=== PATIENT | female | born 1945 | race Caucasian/White ===

== ENCOUNTER 2019-11-02 17:15 | Emergency (ER) | payer MEDICARE, SELFPAY ==
--- NOTE | ~2019-11-02 | XR_ITS ---
EXAMINATION: XR chest 1V portable 11/02/2019 17:40 INDICATION: Shortness of breath, cough and fever PROCEDURE: AP portable chest COMPARISON: Comparison to multiple prior studies sequentially, with oldest reviewed study dated 04/13. FINDINGS: The lungs are clear. The cardiomediastinal silhouette is within normal limits. There are no pleural effusions. There is no pneumothorax suspected. IMPRESSION: 1: NO ACUTE CARDIOPULMONARY DISEASE. Reviewed, dictated and finalized at location A.
[2019-11-02 17:22] VITALS: BP 160/124; PULSE 101; RESP 19; TEMP 37.2; O2SAT 96
--- NOTE | 2019-11-02 17:24 | ECG_ITS ---
Measurements Intervals [place] Rate: 98 P: 78 MD: 132 QRS: -39 QRSD: 94 T: 55 QT: 329 QTc: 421 Interpretive Statements SINUS RHYTHM DELAYED PRECORDIAL R/S TRANSITION BASELINE ARTIFACT- I, III, AVR, AVL BORDERLINE ECG Electronically Signed On 11-03-2019 7:06:15 CDT by Alfredo Chapa D.O.
[2019-11-02 17:34] VITALS: O2SAT 98
[2019-11-02 18:01] LABS: Basophils Percent Auto 0.5 % (0.2-1.2); Eosinophils Absolute Auto 0.2 K/mm3 (0-0.3); Eosinophils Percent Auto 4.1 % (0-4.4); Hematocrit 42.2 % (37.0-47.0); Immature Granulocyte Absolute 0.01 K/mm3 (0.00-0.031); Immature Granulocyte Percent A 0.2 % (0-0.5); Immature Platelet Fraction Pct 14.8 % (0.9-11.2); Lymphocytes Absolute Auto 1.32 K/mm3 (0.9-3.2); Lymphocytes Percent Auto 22.8 % (18.3-44.2); Mean Corpuscular HGB Conc 30.8 g/dl (32-36); Mean Corpuscular Hemoglobin 26.5 pg (26-34); Mean Corpuscular Volume 86.1 fl (80-100); Mean Platelet Volume 13.9 fl (7.4-10.4); Monocytes Absolute Auto 0.5 K/mm3 (0.1-0.6); Monocytes Percent Auto 8.1 % (2.6-8.5); Neutrophils Absolute Auto 3.7 K/mm3 (1.3-6.7); Neutrophils Percent Auto 64.3 % (45.5-73.1); Platelet Count Result 184 k/mm3 (150-375); Red Cell Distribution Width 13.3 % (11.5-14.5); White Blood Count 5.8 K/mm3 (4.5-10.0)
[2019-11-02 18:10] LABS: Blood Urea Nitrogen 17 mg/dL (7-17); Calcium 9.1 mg/dL (8.4-10.2); Carbon Dioxide 27 mmol/L (22-30); Chloride 102 mmol/L (98-107); Estimated Glomerular Filt Rate > 60; Glucose 97 mg/dL (65-105); Potassium 4.2 mmol/L (3.4-5.0); Sodium 137 mmol/L (137-145)
[2019-11-02 19:16] LABS: CRP 1.7 mg/dL (<1.0)
[2019-11-02 19:21] VITALS: BP 163/79; PULSE 79; RESP 19; O2SAT 100
[2019-11-02 19:26] LABS: NT Pro B Type Natriuretic Pept 46 PG/ML (5-100); Troponin I < 0.012 ng/mL (0.000-0.034)
--- NOTE | 2019-11-02 19:41 | ED.SOB ---
HPI - SOB/Dyspnea General Chief Complaint: Shortness of Breath/Dyspnea Stated Complaint: fever, cough Time Seen by Provider: 11/02/19 17:30 Source: patient Mode of arrival: ambulatory Limitations: no limitations History of Present Illness HPI Narrative: 74 f h/o copd c/o nocturnal fevers the last three nights story is that her daughter that she lives with is a business case analyst and had a febrile illness that lasted 10+ days, ultimately was tested for CV19 and was neg however pcp was still suspicious that pts fever could be CV related pt wanted to go to the outpt testing, says she doesn't feel that bad, but was sent to the ed right now, she feels a little sob after walking to the bathroom Severity: moderate Relieving factors: nothing Related Data Home Medications Medication Instructions Recorded Confirmed albuterol sulfate 90 mcg/actuation 1 puff INHALATION Q4H PRN 06/12/19 aerosol inhaler fluticasone propionate 50 1 spray NASAL Q12H 06/12/19 mcg/actuation nasal spray,suspension losartan 50 mg-hydrochlorothiazide 1 tablet PO DAILY 06/12/19 12.5 mg tablet montelukast 10 mg tablet 10 mg PO DAILY 06/12/19 omeprazole 20 mg capsule,delayed 20 mg PO DAILY 06/12/19 release amitriptyline 25 mg PO DAILY 07/22/19 07/22/19 temazepam 15 mg PO HS 07/22/19 07/22/19 tramadol 50 mg PO TID PRN 07/22/19 07/22/19 Allergies Allergy/AdvReac Type Severity Reaction Status Date / Time No Known Allergies Allergy Verified 07/24/19 08:40 Review of Systems Constitutional: Constitutional: Denies fatigue, Reports fever(s) and Denies weakness ENT: Reports sore throat Respiratory: Respiratory: Denies chest congestion, Reports cough, Denies dyspnea and Denies wheezing Musculoskeletal: Musculoskeletal: Denies myalgias, Denies arthralgias and Denies joint swelling Neurologic: Denies syncope and Denies weakness [facility] Surgical History Surgical History (Updated 07/24/19 @ 08:40 by Nguyen Hightower) H/O hysterectomy for benign disease Due to uterine fibroids in 1996 History of bladder repair surgery History of section History of colonoscopy [address] Garcia History of hemorrhoidectomy History of sinus surgery February [address] Rowe due to chronic maxillary and ethmoid sinusitis Hx of cataract surgery Hx of hysterectomy S/P sinus surgery Family History Family History (System 07/24/19 @ 08:40 by Nguyen Hightower) Sibling Chronic obstructive pulmonary disease Hypertension Lung cancer Brother Mother Acute myocardial infarction Mother Family history of premature coronary heart disease, Onset Age: 73 Patient's mother is Sibling Hypertension Family history of elevated blood lipids Family history of alcoholism Family history of diabetes mellitus in first degree relative Other Diabetes mellitus Social History Social History (Updated 10/10/19 @ 17:09 by Deborah Reveles) Social History: The patient has been to her for 20 years. They were in a committed relationship for 13 years prior to getting . She has 3 children 1 of which is struggling with obesity and another 1 who has GI issues and will not follow up with a physician. The other child is relatively healthy. Patient reported that she quit smoking completely about 2 years ago. She denies any significant alcohol use. She lives at home with her daughter, step children and her . They have a small dog and 2 cats. Primary care physician: Dr. Sammie Coughlin Code status: Full code Smoking packs per day: 1 Smoking cigarettes per day: 20.0 Years smoked: 52 Smoking pack-years: 52.00 Smoking status: Former smoker Tobacco type: cigarettes Second hand tobacco smoke exposure: No Smoking end date: 07/26/15 Alcohol intake: never Substance use: never Substance use type: does not use Gender identity (if verbalized b
[2019-11-02] MEDS: ALBUTEROL SULFATE (*SP) AEROSOL 1 PUFF 4 PUFF INHALATION (20:47)
[2019-11-02 20:48] VITALS: BP 146/66; PULSE 100; RESP 22; O2SAT 97
[2019-11-02 22:02] VITALS: BP 147/88; PULSE 84; RESP 18; TEMP 37.2; O2SAT 98
[2019-11-04 06:19] LABS: Pan-SARS RNA: NEGATIVE (NEGATIVE); SARS-CoV-2 RNA: NEGATIVE (NEGATIVE)
== END 2019-11-02 22:03 | disposition home or self-care (01) ==
PROVIDERS: Emergency Provider Emergency Medicine; PCP Family Medicine
DX: J44.9 Chronic obstructive pulmonary disease, unspecified (principal); Z20.828 Contact with and (suspected) exposure to other viral communicable diseases; Z98.49 Cataract extraction status, unspecified eye; Z87.891 Personal history of nicotine dependence; R06.02 Shortness of breath
CPT/HCPCS: 36415; 71045; 80048; 83880; 84484; 85025; 85055; 86140; 87635; 87804; 93005; 99284; A9270; U0002

== ENCOUNTER 2020-01-22 15:52 | Outpatient (CLI) | payer MEDICARE, SELFPAY ==
--- NOTE | ~2020-01-22 | XR_ITS ---
EXAMINATION: XR chest 2V 01/22/2020 16:13 INDICATION: Left-sided chest pain PROCEDURE: 2 view chest COMPARISON: Comparison to multiple prior studies sequentially, with oldest reviewed study dated 11/2017. FINDINGS: The lungs are clear. The cardiomediastinal silhouette is within normal limits. There are no pleural effusions. There is no pneumothorax suspected. IMPRESSION: 1: NO ACUTE CARDIOPULMONARY DISEASE. Reviewed, dictated and finalized at location A.
== END 2020-01-22 15:53 | disposition home or self-care (01) ==
PROVIDERS: PCP Family Medicine; Visit Provider Family Medicine
DX: R05 Cough (principal)
CPT/HCPCS: 71046

== ENCOUNTER 2020-04-29 14:35 | Emergency (ER) | payer MEDICARE, SELFPAY ==
[2020-04-29] VITALS (17 sets, daily range): BP systolic 136–184; BP diastolic 58–131; PULSE 74–93; RESP 12–20; TEMP 36.6; O2SAT 97–100
--- NOTE | ~2020-04-29 | XR_ITS ---
EXAMINATION: XR chest 2V EXAM DATE: 04/29/2020 15:23 INDICATION: Left-sided chest pain. TECHNIQUE: Frontal and lateral projections of the chest obtained and reviewed. Comparison is made to prior examination from 01/22/2020. FINDINGS: The lungs are clear. There are no pleural effusions. The cardiomediastinal silhouette is within normal limits. There is no pneumothorax suspected. The bones and soft tissues are unremarkab le. Mild hyperinflation. IMPRESSION: Mild hyperinflation. Reviewed, dictated and finalized at location B. IMPRESSION: Mild hyperinflation.
--- NOTE | ~2020-04-29 | CT_ITS ---
EXAMINATION: CTA chest PE protocol DATE: 04/29/2020 17:44 INDICATION: Acute onset chest pain TECHNIQUE: Computed tomography (CT) pulmonary angiogram of the chest was performed with 100 mL Omnipa que-350 intravenous contrast. Additional 3D reconstructions utilizing coronal maximum intensity proje ction (MIP) were performed. Automated exposure control and iterative reconstruction technique were em ployed. The dose-length product was 442.68 mGy-cm. COMPARISON: 09/28/2017 FINDINGS: Excellent contrast opacification of the pulmonary arteries. There is mild streak artifact from dense contrast in the superior vena cava and right atrium. Mild scattered respiratory motion artifact which does not significantly limit evaluation. No pulmonary embolism. Mild emphysema. Mild anterior left b asilar atelectasis in the lingula and left lower lobe. A few calcified nodules in the bilateral lower lobes, a few chronic <3 mm noncalcified pulmonary nodules which are unchanged since the prior study, calcified left hilar lymph nodes and a few scattered hepatic and splenic calcifications, all consist ent with old granulomatous disease. No pneumonia, pulmonary edema, pleural effusion or pneumothorax. Heart size is normal. Atherosclerotic coronary artery calcific calcification. No pericardial or pleur al effusion. No pathologically enlarged thoracic lymphadenopathy. Small sliding-type hiatal hernia. V isualized upper abdomen is unremarkable. Mild thoracic levocurvature with severe spondylosis. IMPRESSION: 1. No pulmonary embolism or other acute cardiopulmonary disease. 2. Emphysema. Reviewed, dictated and finalized at location A.
--- NOTE | 2020-04-29 14:39 | ECG_ITS ---
Measurements Intervals [place] Rate: 89 P: 76 NH: 142 QRS: 85 QRSD: 77 T: 74 QT: 348 QTc: 424 Interpretive Statements SINUS RHYTHM BASELINE WANDER- V3 NORMAL ECG Electronically Signed On 04-30-2020 8:04:55 CDT by Alfredo Chapa D.O.
[2020-04-29 15:31] LABS: Basophils Percent Auto 0.6 % (0.2-1.2); Eosinophils Absolute Auto 0.2 K/mm3 (0-0.3); Eosinophils Percent Auto 3.9 % (0-4.4); Hematocrit 39.7 % (37.0-47.0); Hemoglobin 12.6 g/dL (12.0-15.0); Immature Granulocyte Absolute 0.01 K/mm3 (0.00-0.031); Immature Granulocyte Percent A 0.2 % (0-0.5); Immature Platelet Fraction Pct 15.3 % (0.9-11.2); Lymphocytes Absolute Auto 1.19 K/mm3 (0.9-3.2); Mean Corpuscular HGB Conc 31.7 g/dl (32-36); Mean Corpuscular Hemoglobin 28.1 pg (26-34); Mean Corpuscular Volume 88.4 fl (80-100); Monocytes Absolute Auto 0.3 K/mm3 (0.1-0.6); Monocytes Percent Auto 5.5 % (2.6-8.5); Neutrophils Absolute Auto 3.7 K/mm3 (1.3-6.7); Neutrophils Percent Auto 67.8 % (45.5-73.1); Platelet Count Result 166 k/mm3 (150-375); Red Blood Count 4.49 M/mm3 (4.2-5.4); Red Cell Distribution Width 13.2 % (11.5-14.5); White Blood Count 5.4 K/mm3 (4.5-10.0)
[2020-04-29 15:43] LABS: INR 0.9; Prothrombin Time 12.3 Seconds (11.1-14.7)
[2020-04-29 15:44] LABS: Partial Thromboplastin Time 36.5 SECONDS (22.3-36.8)
[2020-04-29 15:53] LABS: Anion Gap 7 mmol/L (8-16); Blood Urea Nitrogen 17 mg/dL (7-17); Calcium 9.1 mg/dL (8.4-10.2); Carbon Dioxide 29 mmol/L (22-30); Chloride 102 mmol/L (98-107); Estimated Glomerular Filt Rate > 60; Glucose 100 mg/dL (65-105); Potassium 4.4 mmol/L (3.4-5.0); Sodium 138 mmol/L (137-145)
[2020-04-29 16:07] LABS: Troponin I < 0.012 ng/mL (0.000-0.034)
--- NOTE | 2020-04-29 16:20 | ED.CHESTPAIN ---
HPI - Chest Pain General Chief Complaint: Chest Pain Stated Complaint: cp Time Seen by Provider: 04/29/20 16:19 Source: patient Mode of arrival: ambulatory Limitations: no limitations History of Present Illness HPI narrative: Patient is a 75-year-old female with a history of COPD who presents for evaluation of chest pain. Patient states that she was doing activities around her house when she suddenly experienced sharp, severe, cramping chest pain over the front, center of her chest. No radiation to the back, jaw, shoulder or arm. Patient states she felt a bit flushed with the pain, no associated nausea, did experience some shortness of breath but states that she usually has this chronically. She denies any recent fever, no worsening cough other than baseline cough. She reports mild rhinorrhea. No recent sick contacts. Pain is currently more mild in nature. She is denying wanting any medication for pain. Patient did states to take a baby aspirin daily. She denies any cardiac history, but when questioned about the last admission with cardiology consultation, patient simply states she does not follow-up with anyone outpatient. Related Data Home Medications Medication Instructions Recorded Confirmed albuterol sulfate 90 mcg/actuation 1 puff INHALATION Q4H PRN 06/12/19 02/10/20 aerosol inhaler fluticasone propionate 50 1 spray NASAL Q12H 06/12/19 02/10/20 mcg/actuation nasal spray,suspension losartan 50 mg-hydrochlorothiazide 1 tablet PO DAILY 06/12/19 02/10/20 12.5 mg tablet montelukast 10 mg tablet 10 mg PO DAILY 06/12/19 02/10/20 omeprazole 20 mg capsule,delayed 20 mg PO DAILY 06/12/19 02/10/20 release Allergies Allergy/AdvReac Type Severity Reaction Status Date / Time No Known Allergies Allergy Verified 02/01/20 12:57 Review of Systems Review of Systems: Narrative: CONSTITUTIONAL: Denies fever EYES: Denies visual changes ENT: Denies rhinorrhea, congestion, sore throat, or otalgia. CARDIOVASCULAR: Reports chest pain, denies palpitations or leg edema RESPIRATORY: Reports chronic cough and shortness of breath, at baseline per the patient GASTROINTESTINAL: Denies abdominal pain, nausea, vomiting, or diarrhea. GENITOURINARY: Denies dysuria or hematuria. SKIN: Denies rash or itching. MUSCULOSKELETAL: Denies back pain, joint pain, or myalgia. NEUROLOGIC: Denies headache, numbness, or weakness. [facility] Past Medical History Medical History Arthritis Benign hypertension without CHF Chronic ethmoidal sinusitis Chronic pain COPD (chronic obstructive pulmonary disease) PFTs July 2017 demonstrated moderate obstructive ventilatory defect with severe small airway disease. No acute bronchodilator response. Severely decreased DLCO with worsening of her DLCO compared to prior study in November of 2016 COPD (chronic obstructive pulmonary disease) Depression with anxiety Diastolic dysfunction Echo September 2017 GERD (gastroesophageal reflux disease) History of tobacco abuse Insomnia Irritable bowel syndrome (IBS) MDD (major depressive disorder), recurrent episode, moderate Multifocal atrial tachycardia September 2016 Osteoporosis Right radial head fracture Right wrist fracture Surgical History Surgical History (Updated 07/24/19 @ 08:40 by Nguyen Hightower) H/O hysterectomy for benign disease Due to uterine fibroids in 1996 History of bladder repair surgery History of section History of colonoscopy [address] Garcia History of hemorrhoidectomy History of sinus surgery February [address] Rowe due to chronic maxillary and ethmoid sinusitis Hx of cataract surgery Hx of hysterectomy S/P sinus surgery Family History Family History (System 07/24/19 @ 08:40 by Nguyen Hightower) Sibling Chronic obstructive pulmonary disease Hypertension Lung cancer Brother Mother Acute myocardial infarction Mother
--- NOTE | 2020-04-29 16:35 | ECG_ITS ---
Measurements Intervals [place] Rate: 78 P: 78 SD: 148 QRS: 87 QRSD: 86 T: 75 QT: 372 QTc: 425 Interpretive Statements SINUS RHYTHM BASELINE WANDER- V5 NORMAL ECG Electronically Signed On 04-30-2020 10:33:17 CDT by Alfredo Chapa D.O.
[2020-04-29] MEDS: ASPIRIN 81 MG CHEWABLE TABLET 324 MG PO (16:42)
[2020-04-29 18:54] LABS: Troponin I < 0.012 ng/mL (0.000-0.034)
== END 2020-04-29 19:15 | disposition home or self-care (01) ==
PROVIDERS: Emergency Medicine; Emergency Provider Emergency Medicine; PCP Family Medicine
DX: R07.89 Other chest pain (principal); I10 Essential (primary) hypertension; J43.9 Emphysema, unspecified; K21.9 Gastro-esophageal reflux disease without esophagitis; K58.9 Irritable bowel syndrome, unspecified; M81.0 Age-related osteoporosis without current pathological fracture; M19.90 Unspecified osteoarthritis, unspecified site; Z98.49 Cataract extraction status, unspecified eye; Z87.891 Personal history of nicotine dependence
CPT/HCPCS: 36415; 71046; 71275; 80048; 84484; 85025; 85055; 85610; 85730; 93005; 99284; A9270; Q9967

== ENCOUNTER 2020-06-10 14:08 | Outpatient (CLI) | payer MEDICARE, SELFPAY ==
--- NOTE | ~2020-06-10 | US_ITS ---
EXAMINATION: US carotid duplex BI DATE: 06/10/2020 15:17 INDICATION: Carotid atherosclerosis and stenosis. Carotid bruits. Hypertension. TECHNIQUE: Grayscale, color Doppler, and pulsed Doppler images of the cervical carotid arteries were obtained. The degree of vessel stenosis is placed in one of the following categories: normal, <50%, 5 0-69%, >=70% but less than near-occlusion, near-occlusion, or total occlusion. Note that percent sten osis relative to normal distal artery lumen diameter is indirectly measured from velocity measurement s as described by Jaleel, et al. Radiology 2003; 229:340-346. COMPARISON: 10/17/2012 FINDINGS: RIGHT: The right common carotid artery (CCA) peak systolic velocity (PSV) is 87 cm/s. The right internal car otid artery (ICA) PSV is 89 cm/s. The right ICA end-diastolic velocity (EDV) is 33 cm/s. The right IC A/CCA PSV ratio is 1.02. Grayscale and color Doppler images yield an estimate of <50% diameter reduct ion from plaque in the ICA. The external carotid artery (ECA) PSV is 114 cm/s. There is antegrade sandra w in the right vertebral artery. LEFT: The left CCA PSV is 61 cm/s. The left ICA PSV is 85 cm/s. The left ICA EDV is 34 cm/s. The left ICA/C CA PSV ratio is 1.4. Grayscale and color Doppler images yield an estimate of <50% diameter reduction from plaque in the ICA. The ECA PSV is 70 cm/s. There is antegrade flow in the left vertebral artery. IMPRESSION: 1. <50% stenosis in the right internal carotid artery. 2. <50% stenosis in the left internal carotid artery. Reviewed, dictated and finalized at location . [employer]
--- NOTE | ~2020-06-10 | CT_ITS ---
EXAMINATION: CT sinus wo con DATE: 06/10/2020 15:26 INDICATION: Localized swelling, mass TECHNIQUE: Computed tomography (CT) of the paranasal sinuses was performed without contrast. Iterativ e reconstruction technique was employed. Exam dose: 312.93 mGy-cm total exam DLP. COMPARISON: 02/09/2018 CT sinuses FINDINGS: There is minimal rightward bowing of the nasal septum. There is resection of the middle briana al turbinates and uncinate processes. There is moderate mucoperiosteal thickening of the left frontal sinus. There is minimal mucoperiostea l thickening of the right frontal sinus. Status post bilateral nasal antral windows and partial ethmoidectomies. There is prominent opacificat ion of the residual ethmoid air cells. Approximately 5 millimeter mucus retention cyst of the lower right maxillary sinus. There is focal mi nimal mucoperiosteal thickening in the mid lateral lower right maxillary sinus. There is mild to moderate cystic soft tissue thickening within the right sphenoid sinus. The left sph enoid sinus is clear. The mastoid air cells are normally developed and aerated. Middle and inner ear apparatus appear normal. IMPRESSION: Bilateral nasal antral windows and partial ethmoidectomies Mucoperiosteal thickening of the frontal sinuses, ethmoid air cells Small mucus retention cyst of the floor of the right maxillary sinus and minimal focal mucosal perios teal thickening of the lateral wall of same sinus Reviewed, dictated and finalized at Location A. Reviewed, dictated and finalized at location B. [employer] WORK[employer] IMPRESSION: Bilateral nasal antral windows and partial ethmoidectomies Mucoperiosteal thickening of the frontal sinuses, ethmoid air cells Small mucus retention cyst of the floor of the right maxillary sinus and minima l focal mucosal periosteal thickening of the lateral wall of same sinus
== END 2020-06-10 14:09 | disposition home or self-care (01) ==
PROVIDERS: PCP Family Medicine; Visit Provider Physician Assistant
DX: R22.0 Localized swelling, mass and lump, head (principal); I10 Essential (primary) hypertension; R41.0 Disorientation, unspecified; R42 Dizziness and giddiness; I65.23 Occlusion and stenosis of bilateral carotid arteries
CPT/HCPCS: 70486; 93880

== ENCOUNTER 2020-10-10 12:29 | Outpatient (CLI) | payer MEDICARE, SELFPAY ==
[2020-10-10 13:00] VITALS: O2SAT 94
[2020-10-10 13:08] VITALS: PULSE 120; O2SAT 87
[2020-10-10 13:09] VITALS: PULSE 120; O2SAT 88
[2020-10-10 13:10] VITALS: PULSE 112; O2SAT 92
--- NOTE | 2020-10-10 14:09 | HOMEO2EVAL ---
Home Oxygen Evaluation RC: Home Oxygen (O2) Evaluation Start: 10/10/20 14:03 Freq: Status: Active Protocol: RPE Activity Type Activity Date Activity User E-Sign Co-Sign Detail Recorded Client Recorded Date Recorded By Document 10/10/20 13:10 KMV [id number] 10/10/20 14:06 KMV Document 10/10/20 13:10 KMV [id number] 10/10/20 14:06 KMV 10/10/20 10/10/20 13:10 13:10 Home O2 Evaluation Test Phase Exercise Exercise Oxygen Delivery Room Air Nasal Cannula Oxygen Flow Rate (L/min) 2 Pulse Oximetry (90-100 %) 87 L 92 Pulse Rate (60-100 beats/min) 120 H 112 H Activity Tolerance Fair Fair Rating of Perceived Dyspnea (PD) +3 Moderate Difficulty, But Can Continue
== END 2020-10-10 12:30 | disposition home or self-care (01) ==
PROVIDERS: PCP Family Medicine; Visit Provider Internal Medicine Pulmonary Disease
DX: J44.9 Chronic obstructive pulmonary disease, unspecified (principal); R06.02 Shortness of breath
CPT/HCPCS: 94618

== ENCOUNTER 2021-03-10 17:08 | Outpatient (CLI) | payer MEDICARE, SELFPAY ==
--- NOTE | ~2021-03-10 | XR_ITS ---
XR chest 2V DATE: 03/10/2021 17:31 INDICATION: Shortness of breath, cough. TECHNIQUE: PA and lateral views COMPARISON: 04/29/2020 CT pulmonary scan 04/29/2020 2 view chest FINDINGS: Normal heart size. Aortic arch calcification. No hilar or mediastinal enlargement. No pulmonary infiltrate or consolidation, pleural effusion or pulmonary vascular congestion or pneumo thorax is detected. Moderate hyperinflation consistent with obstructive airways disease. Diffuse osteopenia. IMPRESSION: Moderate hyperinflation; no active cardiopulmonary disease Reviewed, dictated and finalized at location A.
== END 2021-03-10 17:09 | disposition home or self-care (01) ==
PROVIDERS: PCP Family Medicine; Visit Provider Physician Assistant
DX: U07.1 COVID-19 (principal); R06.02 Shortness of breath; R05 Cough; R91.8 Other nonspecific abnormal finding of lung field
CPT/HCPCS: 71046

== ENCOUNTER 2021-04-01 14:54 | Outpatient (CLI) | payer MEDICARE, SELFPAY ==
--- NOTE | ~2021-04-01 | MM_ITS ---
EXAMINATION: MM screening idris BI w johanne HISTORY: Screening mammogram TECHNIQUE: Craniocaudal and mediolateral oblique 3-D tomosynthesis images were obtained and synthetic 2-D images were generated. CAD analysis was submitted and interpreted. COMPARISON: 12/31/2016, 06/26/2013 bilateral digital screening mammogram examinations BREAST PARENCHYMAL COMPOSITION: There are scattered areas of fibroglandular density. FINDINGS: There is no evidence of suspicious mass, calcification, or architectural distortion to sugg est malignancy in either breast. There has been no suspicious interval change. IMPRESSION: 1. No mammographic evidence of malignancy. 2. Recommend routine screening mammography in one year. BI-RADS Category 1: Negative Reviewed, dictated and finalized at location A.
--- NOTE | ~2021-04-01 | DEXA_ITS ---
Bone Density Report Name: Abigail Martinez Age: 76 Sex: Female Ethnicity: White Date of : 1945 Indication: postmenopausal; asthma or emphysema; hysterectomy; Referring Provider: Mirlande Hinton Study: Bone densitometry was performed. Exam Date: April 01, 2021 Accession number: [id number] Bone Density: Region BMD T-score Z-score Classification AP Spine (L1, L2, L3) 0.980 -0.3 2.0 Normal Femoral Neck (Left) 0.663 -1.7 0.4 Osteopenia Total Hip (Left) 0.725 -1.8 0.0 Osteopenia Total Hip Bilateral Avg 0.727 -1.8 0.0 Osteopenia Femoral Neck (Right) 0.620 -2.1 0.0 Osteopenia Total Hip (Right) 0.729 -1.7 0.0 Osteopenia World Health Organization criteria for BMD impression classify patients as: Normal (T-score at or above -1.0), Osteopenia (T-score between -1.0 and -2.5), or Osteoporosis (T-score at or below -2.5). 10-year Fracture Risk(1): Major Osteoporotic Fracture 12% Hip Fracture 3.1% Reported Risk Factors: [place] (), Neck BMD=0.620, BMI=34.5 (1) FRAX(R) Version 3.08. Fracture probability calculated for an untreated patient. Fracture probability may be lower if the patient has received treatment. Clinical Information Provided by Patient: Has the following medical conditions: Asthma or Emphysema, Hysterectomy Patient maximum height was 59.5 Menopause Age: 52 No regular weight bearing exercise Onset of menses at age 12 Number of children 3 Impression: The patient has low bone mass, based on the Right Femoral Neck T-score. The patient has an estimated ten-year risk of hip fracture of 3.1% and an estimated ten-year risk of major fracture of 12%, based on the WHO FRAX algorithm. Discussion: BONE DENSITY IS LOW AT ONE OR MORE SKELETAL SITES. THE PATIENT'S BMD AND CLINICAL RISK FACTORS CONTRIBUTE TO THIS PATIENT'S INCREASED RISK OF FRACTURE. This patient's lowest T-score is low at one or more skeletal sites. It meets the World Health Organization's (WHO) criteria for ?low bone mass? (T-score between -1.0 and -2.5). The patient's 10-year risk of hip fracture as calculated by FRAX exceeds the threshold where pharmacological therapy is recommended by the National Osteoporosis Foundation (NOF). However, all treatment decisions require clinical judgment and consideration of individual patient factors, including patient preferences, comorbidities, previous drug use, risk factors not captured in the FRAX model (e.g., frailty, falls, vitamin D deficiency, increased bone turnover, interval significant decline in bone density) and possible under or overestimation of fracture risk by FRAX. The patient should follow a healthful lifestyle (good nutrition with adequate calcium and vitamin D, and appropriate weight-bearing exercise). Follow-Up: Consider a repeat BMD and Vertebral Fracture Asses
== END 2021-04-01 14:55 | disposition home or self-care (01) ==
PROVIDERS: PCP Family Medicine; Visit Provider Physician Assistant
DX: Z12.31 Encounter for screening mammogram for malignant neoplasm of breast (principal); Z78.0 Asymptomatic menopausal state; M85.89 Other specified disorders of bone density and structure, multiple sites
CPT/HCPCS: 77063; 77067; 77080

== ENCOUNTER 2021-04-18 07:56 | Outpatient (CLI) | payer MEDICARE, SELFPAY ==
--- NOTE | ~2021-04-18 | CT_ITS ---
EXAMINATION: CT lung screening DATE: 04/18/2021 08:26 INDICATION: COPD. Dyspnea. Personal history of tobacco dependence. TECHNIQUE: Computed tomography (CT) of the chest was performed without intravenous contrast. The dose -length product was 89.87 mGy-cm. Automated exposure control and iterative reconstruction technique w ere employed. COMPARISON: CT dated 04/29/2020 FINDINGS: No thoracic lymphadenopathy. No significant pleural or pericardial effusion. Heart size is normal. There is atherosclerosis of the aorta and coronary arteries. There are calcified granulomas o f the liver and spleen. No significant pleural or pericardial effusion. There is emphysema. There are scattered nodules measuring 3 mm or less in both lungs without significant change. No pneumothorax. No focal parenchymal consolidation. IMPRESSION: 1. Lung-RADS category 2: Benign appearance or behavior. Continue annual screening with noncontrast lo w-dose chest CT in 12 months. Reviewed, dictated and finalized at location A. IMPRESSION: 1. Lung-RADS category 2: Benign appearance or behavior. Continue annual screeni ng with noncontrast low-dose chest CT in 12 months.
== END 2021-04-18 07:57 | disposition home or self-care (01) ==
PROVIDERS: PCP Family Medicine; Visit Provider Internal Medicine Pulmonary Disease
DX: Z87.891 Personal history of nicotine dependence (principal)
CPT/HCPCS: 71271

== ENCOUNTER 2021-11-21 14:18 | Emergency (ER) | payer MEDICARE, SELFPAY ==
--- NOTE | ~2021-11-21 | XR_ITS ---
EXAMINATION: XR chest 2V DATE: 11/21/2021 14:36 INDICATION: Cough and shortness of breath TECHNIQUE: PA and lateral views of the chest are obtained. COMPARISON: 03/10/2021 FINDINGS: The lungs are free of acute opacities. There is no pleural effusion or pneumothorax. The ca rdiomediastinal silhouette is normal. There is moderate thoracic spondylosis. IMPRESSION: 1. No acute cardiopulmonary abnormality. Reviewed, dictated and finalized at location B.
[2021-11-21 14:26] VITALS: BP 146/61; PULSE 112; RESP 16; TEMP 37.3; O2SAT 91
--- NOTE | 2021-11-21 14:28 | ED.URI ---
HPI - URI/Sore Throat General Chief Complaint: Upper Respiratory Infection Stated Complaint: SOB/SORE THROAT/COUGH Time Seen by Provider: 11/21/21 14:28 Source: patient and RN notes reviewed Mode of arrival: ambulatory Limitations: no limitations History of Present Illness HPI Narrative: 76-year-old female with a history of chronic respiratory failure and emphysema presented for complaint of cough, shortness of breath, chills, wheezing and sore throat for 1 week. Cough is productive of thick yellow sputum. She endorses wearing oxygen at night, shortness of breath is worse than normal. She has been using her nebulizer and trelegy as directed. She states this was the first day she felt that she could leave the house. States O2 sat usually 90-91%. She endorses urine stream is weak. Denies new chest pain, nausea, vomiting, diarrhea. Taking mucinex with temporary relief. MD elicited complaint: cough Related Data Home Medications Medication Instructions Recorded Confirmed fluticasone propionate 50 1 spray NASAL Q12H 06/12/19 09/30/21 mcg/actuation nasal spray,suspension albuterol sulfate 2.5 mg INHALATION Q4-6H PRN 09/30/21 09/30/21 Allergies Allergy/AdvReac Type Severity Reaction Status Date / Time No Known Allergies Allergy Verified 09/30/21 13:13 Review of Systems Review of Systems: CONSTITUTIONAL: Endorses malaise, chills EYES: Denies visual changes, redness, or discharge ENT: Denies rhinorrhea, congestion, sinus pain, otalgia CARDIOVASCULAR: Denies chest pain, palpitations, edema RESPIRATORY: Reports cough, dyspnea GASTROINTESTINAL: Denies abdominal pain, nausea, vomiting, diarrhea SKIN: Denies rash or itching MUSCULOSKELETAL: Denies myalgia NEUROLOGIC: Denies headache [facility] Past Medical History Medical History Arthritis Benign hypertension without CHF Chronic ethmoidal sinusitis Chronic pain COPD (chronic obstructive pulmonary disease) PFTs July 2017 demonstrated moderate obstructive ventilatory defect with severe small airway disease. No acute bronchodilator response. Severely decreased DLCO with worsening of her DLCO compared to prior study in November of 2016 COPD (chronic obstructive pulmonary disease) Depression with anxiety Diastolic dysfunction Echo September 2017 Emphysema lung GERD (gastroesophageal reflux disease) History of tobacco abuse Insomnia Irritable bowel syndrome (IBS) MDD (major depressive disorder), recurrent episode, moderate Multifocal atrial tachycardia September 2016 Osteoporosis Right radial head fracture Right wrist fracture Surgical History Surgical History H/O hysterectomy for benign disease Due to uterine fibroids in 1996 History of bladder repair surgery History of section History of colonoscopy [address] Garcia History of hemorrhoidectomy History of sinus surgery February [address] Rowe due to chronic maxillary and ethmoid sinusitis Hx of cataract surgery Hx of hysterectomy S/P sinus surgery Family History Family History Sibling Chronic obstructive pulmonary disease Hypertension Lung cancer Brother Mother Acute myocardial infarction Mother Family history of premature coronary heart disease, Onset Age: 73 Patient's mother is Sibling Hypertension Family history of elevated blood lipids Family history of alcoholism Family history of diabetes mellitus in first degree relative Other Diabetes mellitus Social History Social History (Updated 09/30/21 @ 14:27 by Sarah Maguire PA-C) Social History: The patient has been to her for 20 years. They were in a committed relationship for 13 years prior to getting . She has 3 children. Patient reported that she quit smoking 2015. She denies any
== END 2021-11-21 15:14 | disposition home or self-care (01) ==
PROVIDERS: Emergency Provider Nurse Practitioner Family; PCP Family Medicine
DX: J44.1 Chronic obstructive pulmonary disease with (acute) exacerbation (principal); Z87.891 Personal history of nicotine dependence
CPT/HCPCS: 71046; 87081; 87880; 99213; G0463

== ENCOUNTER 2021-11-26 19:54 | Emergency (ER) | payer MEDICARE, SELFPAY ==
[2021-11-26 19:56] VITALS: BP 153/82; PULSE 111; RESP 16; TEMP 36.7; O2SAT 100
--- NOTE | 2021-11-26 20:20 | PC.NURSE ---
Pt stated to this nurse that she no longer wants to seek medical evaluation and will return if she feels she needs to. This nurse educated patient on the risks and benefits of staying and that the pt is welcome to come back to be evaluated if there are any changes.
== END 2021-11-26 20:20 | disposition left against medical advice (07) ==
LOC: ANHED 20:30
PROVIDERS: PCP Family Medicine
DX: R06.02 Shortness of breath (principal)
CPT/HCPCS: 99199

== ENCOUNTER 2021-12-23 11:43 | Outpatient (CLI) | payer MEDICARE, SELFPAY ==
--- NOTE | ~2021-12-23 | US_ITS ---
EXAMINATION: US venous doppler LE DATE: 12/23/2021 12:24 INDICATION: Right lower limb pain and swelling TECHNIQUE: Grayscale ultrasound images without and with compression and Doppler ultrasound images of the right lower extremity veins were obtained. COMPARISON: None. FINDINGS: The visualized portions of right common femoral vein, profunda (deep) femoral vein, femoral vein, pop liteal vein, peroneal trunk, posterior tibial veins, peroneal veins, gastrocnemius vein and greater s aphenous vein outflow are patent. IMPRESSION: 1. No deep venous thrombosis in the right lower limb. Reviewed, dictated and finalized at location B.
== END 2021-12-23 11:44 | disposition home or self-care (01) ==
LOC: ANHIMG 11:48
PROVIDERS: PCP Family Medicine; Visit Provider Family Medicine
DX: R60.0 Localized edema (principal)
CPT/HCPCS: 93971

== ENCOUNTER 2022-01-03 12:17 | Emergency (ER) | payer MEDICARE, SELFPAY ==
--- NOTE | ~2022-01-03 | XR_ITS ---
XR elbow RT min 3V 01/03/2022 13:23 INDICATION: Right elbow pain PROCEDURE: 4 views right elbow COMPARISON: 12/08/2016 FINDINGS: Fracture, dislocation or subluxation is not identified. There is no significant joint effus ion. There is soft tissue swelling dorsal to the elbow. No foreign bodies are identified. IMPRESSION: 1: NO ACUTE BONE OR JOINT ABNORMALITY IDENTIFIED. Reviewed, dictated and finalized at location A.
[2022-01-03 12:24] VITALS: BP 139/71; PULSE 109; RESP 18; TEMP 36.2; O2SAT 98
--- NOTE | 2022-01-03 13:10 | ED.UPPEXIN ---
HPI - Extremity Injury (Upper) General Chief Complaint: Extremity Injury, Upper Stated Complaint: right elbow injury Time Seen by Provider: 01/03/22 13:11 Source: patient, family, RN notes reviewed and old records reviewed History of Present Illness HPI narrative: 76-year-old female accompanied by her presents to express care with complaints of pain to her right elbow for the past 2 days. Patient has noted swelling with redness and warmth at the right elbow olecranon process region with difficulty and pain with movement of her right elbow. Patient reports no injury to her right elbow known. Onset (ago): day(s) (2) Severity scale (1-10): 3 Related Data Home Medications Medication Instructions Recorded Confirmed fluticasone propionate 50 1 spray intranasal Q12H 06/12/19 12/23/21 mcg/actuation nasal spray,suspension (Flonase Allergy Relief) albuterol sulfate 2.5 mg/3 mL 2.5 mg inhalation Q4-6H PRN 09/30/21 12/23/21 (0.083 %) solution for nebulization shortness of breath or wheezing Allergies Allergy/AdvReac Type Severity Reaction Status Date / Time No Known Allergies Allergy Verified 12/23/21 10:54 Review of Systems Review of Systems: CONSTITUTIONAL: Denies fever, chills, or sweats. EYES: Denies visual changes, redness, or discharge. ENT: Denies rhinorrhea, congestion, sore throat, or otalgia. CARDIOVASCULAR: Denies chest pain, palpitations, or edema. RESPIRATORY: Denies cough or dyspnea. GASTROINTESTINAL: Denies abdominal pain, nausea, vomiting, or diarrhea. GENITOURINARY: Denies dysuria or hematuria. SKIN: Denies rash or itching. MUSCULOSKELETAL: Positive back pain,positive for pain to her right elbow, or myalgia. NEUROLOGIC: Denies headache, numbness, or weakness. PSYCHIATRIC: positive for history of anxiety or depression. [facility] Past Medical History Medical History Arthritis Benign hypertension without CHF Chronic ethmoidal sinusitis Chronic pain COPD (chronic obstructive pulmonary disease) PFTs July 2017 demonstrated moderate obstructive ventilatory defect with severe small airway disease. No acute bronchodilator response. Severely decreased DLCO with worsening of her DLCO compared to prior study in November of 2016 COPD (chronic obstructive pulmonary disease) Depression with anxiety Diastolic dysfunction Echo September 2017 Emphysema lung GERD (gastroesophageal reflux disease) History of tobacco abuse Insomnia Irritable bowel syndrome (IBS) MDD (major depressive disorder), recurrent episode, moderate Multifocal atrial tachycardia September 2016 Osteoporosis Right radial head fracture Right wrist fracture Surgical History Surgical History H/O hysterectomy for benign disease Due to uterine fibroids in 1996 History of bladder repair surgery History of section History of colonoscopy [address] Garcia History of hemorrhoidectomy History of sinus surgery February [address] Rowe due to chronic maxillary and ethmoid sinusitis Hx of cataract surgery Hx of hysterectomy S/P sinus surgery Family History Family History Sibling Chronic obstructive pulmonary disease Hypertension Lung cancer Brother Mother Acute myocardial infarction Mother Family history of premature coronary heart disease, Onset Age: 73 Patient's mother is Sibling Hypertension Family history of elevated blood lipids Family history of alcoholism Family history of diabetes mellitus in first degree relative Other Diabetes mellitus Social History Social History Social History: The patient has been to her for 20 years. They were in a committed relationship for 13 years prior to getting . She has 3 children. P
== END 2022-01-03 13:50 | disposition home or self-care (01) ==
PROVIDERS: Emergency Provider Registered Nurse; PCP Family Medicine
DX: L03.113 Cellulitis of right upper limb (principal); Z87.891 Personal history of nicotine dependence; I10 Essential (primary) hypertension; J44.9 Chronic obstructive pulmonary disease, unspecified; K21.9 Gastro-esophageal reflux disease without esophagitis; M81.0 Age-related osteoporosis without current pathological fracture
CPT/HCPCS: 73080; 99213; G0463

== ENCOUNTER 2022-04-20 12:57 | Outpatient (CLI) | payer MEDICARE, SELFPAY ==
--- NOTE | ~2022-04-20 | CT_ITS ---
EXAMINATION: CT lung screening DATE: 04/20/2022 13:16 INDICATION: Former smoker. COPD. Emphysema. Chest pain. TECHNIQUE: Computed tomography (CT) of the chest was performed without intravenous contrast. The dose -length product was 109.77 mGy-cm. Automated exposure control and iterative reconstruction technique were employed. COMPARISON: CT chest dated 04/18/2021 FINDINGS: Heart size normal. No thoracic lymphadenopathy. No significant pleural or pericardial effus ion. Small hiatal hernia. There are calcified granulomas of the liver and spleen. Stable small bilate ral pulmonary nodules measuring 3 mm or less. No new pulmonary nodules or masses. No pneumothorax. No focal consolidation. No endobronchial lesions. IMPRESSION: 1. Lung-RADS category 2: Benign appearance or behavior. Continue annual screening with noncontrast lo w-dose chest CT in 12 months. Reviewed, dictated and finalized at location B. IMPRESSION: 1. Lung-RADS category 2: Benign appearance or behavior. Continue annual screeni ng with noncontrast low-dose chest CT in 12 months.
== END 2022-04-20 12:58 | disposition home or self-care (01) ==
LOC: ANHIMG 13:01
PROVIDERS: PCP Family Medicine; Visit Provider Physician Assistant
DX: Z12.2 Encounter for screening for malignant neoplasm of respiratory organs (principal); Z87.891 Personal history of nicotine dependence
CPT/HCPCS: 71271

== ENCOUNTER 2022-06-26 20:27 | Emergency (ER) | payer MEDICARE, SELFPAY ==
[2022-06-26] VITALS (19 sets, daily range): BP systolic 91–140; BP diastolic 31–112; PULSE 69–98; RESP 15–25; TEMP 36.9; O2SAT 95–100
--- NOTE | ~2022-06-26 | XR_ITS ---
EXAMINATION: XR chest 2V 06/26/2022 21:16 INDICATION: Covid positive. PROCEDURE: 2 view chest COMPARISON: Comparison to multiple prior studies sequentially, with oldest reviewed study dated 01/21. FINDINGS: The lungs are clear. The cardiomediastinal silhouette is within normal limits. There are no pleural effusions. There is no pneumothorax suspected. IMPRESSION: 1: NO ACUTE CARDIOPULMONARY DISEASE. Reviewed, dictated and finalized at location A. ATIONAL DIRECTOR
--- NOTE | ~2022-06-26 | CT_ITS ---
EXAMINATION: CTA chest PE protocol DATE: 06/27/2022 08:02 COUNSELOR DORMITORY INDICATION: Chest pain and shortness of breath. Elevated d-dimer. TECHNIQUE: Computed tomographic angiography (CTA) of the chest was performed with 100 mL Omnipaque-35 0 intravenous contrast. The dose-length product was 281.77 mGy-cm. Maximum intensity projection 3D-re constructions of the aorta and other arteries were constructed by the technologist on a separate work station. COMPARISON: CT dated 04/20/2022. FINDINGS: Heart size normal. No significant pleural or pericardial effusion. No thoracic lymphadenopa thy. Study is technically adequate without evidence for pulmonary embolism. There is emphysema. No en dobronchial lesions. There is lingular atelectasis/scarring. There is a 2 mm right upper lobe nodule. No endobronchial lesions. No pneumothorax. No focal airspace consolidation. There is moderate thorac ic spondylosis. No focal lytic or blastic lesions. No thoracic lymphadenopathy. Heart size normal. Th ere are calcified granulomas in the liver and spleen. Small hiatal hernia. IMPRESSION: 1. No acute cardiopulmonary disease. No evidence for pulmonary embolism. 2: Right upper lobe nodule measuring 2 mm, likely benign. Recommend follow-up low dose CT chest in 12 months. Reviewed, dictated and finalized at location A. SELOR DORMITORY IMPRESSION: 1. No acute cardiopulmonary disease. No evidence for pulmonary embolism. 2: Right upper lobe nodule measuring 2 mm, likely benign. Recommend follow-up l ow dose CT chest in 12 months.
--- NOTE | 2022-06-26 21:12 | ECG_ITS ---
Measurements Intervals [place] Rate: 95 P: 19 SD: 119 QRS: 92 QRSD: 85 T: 55 QT: 334 QTc: 420 Interpretive Statements SINUS RHYTHM WITH SHORT SD INTERVAL BASELINE ARTIFACT BORDERLINE ECG COMPARED TO ECG 04/29/2020 16:48:02 NO SIGNIFICANT CHANGES Electronically Signed On 06-27-2022 14:03:09 [employer] PROFESSOR by Kaden Sams M.D.
--- NOTE | 2022-06-26 21:35 | ED.SOB ---
HPI - SOB/Dyspnea General Chief Complaint: Shortness of Breath/Dyspnea Stated Complaint: covid + - sx began on Wednesday Time Seen by Provider: 06/26/22 21:21 Source: patient Mode of arrival: ambulatory Limitations: no limitations History of Present Illness HPI Narrative: This is a 77 year old female that presents to the ER for worsening dyspnea. Reports she has had cold symptoms over the last 4 days. Reports cough, congestion, sore throat, and malaise. Reports today she took a home test and was positive for COVID. She has been vaccinated. Reports she has been having some chest pressure and wheezing today. She last did a breathing treatment about 4 hours ago. She has history of COPD. Denies fevers. Related Data Home Medications Medication Instructions Recorded Confirmed fluticasone propionate 50 1 spray intranasal Q12H 06/12/19 04/27/22 mcg/actuation nasal spray,suspension (Flonase Allergy Relief) albuterol sulfate 2.5 mg/3 mL 2.5 mg inhalation Q4-6H PRN 09/30/21 04/27/22 (0.083 %) solution for nebulization shortness of breath or wheezing Allergies Allergy/AdvReac Type Severity Reaction Status Date / Time No Known Allergies Allergy Verified 06/26/22 21:40 Review of Systems Review of Systems: CONSTITUTIONAL: Denies fever ENT: Reports rhinorrhea, congestion, sore throat. Denies otalgia CARDIOVASCULAR: Reports chest pain. Denies edema. RESPIRATORY: Reports cough and dyspnea. GASTROINTESTINAL: Denies abdominal pain, nausea, vomiting All systems reviewed & are unremarkable except as noted in HPI and below PMFSH Past Medical History Medical History Arthritis Benign hypertension without CHF Chronic ethmoidal sinusitis Chronic pain COPD (chronic obstructive pulmonary disease) PFTs July 2017 demonstrated moderate obstructive ventilatory defect with severe small airway disease. No acute bronchodilator response. Severely decreased DLCO with worsening of her DLCO compared to prior study in November of 2016 COPD (chronic obstructive pulmonary disease) Depression with anxiety Diastolic dysfunction Echo September 2017 Emphysema lung GERD (gastroesophageal reflux disease) History of tobacco abuse Insomnia Irritable bowel syndrome (IBS) MDD (major depressive disorder), recurrent episode, moderate Multifocal atrial tachycardia September 2016 Osteoporosis Right radial head fracture Right wrist fracture Surgical History Surgical History H/O hysterectomy for benign disease Due to uterine fibroids in 1996 History of bladder repair surgery History of section History of colonoscopy [address] Garcia History of hemorrhoidectomy History of sinus surgery February [address] Rowe due to chronic maxillary and ethmoid sinusitis Hx of cataract surgery Hx of hysterectomy S/P sinus surgery Family History Family History Sibling Chronic obstructive pulmonary disease Hypertension Lung cancer Brother Mother Acute myocardial infarction Mother Family history of premature coronary heart disease, Onset Age: 73 Patient's mother is Sibling Hypertension Family history of elevated blood lipids Family history of alcoholism Family history of diabetes mellitus in first degree relative Other Diabetes mellitus Social History Social History Social History: The patient has been to her for 20 years. They were in a committed relationship for 13 years prior to getting . She has 3 children. Patient reported that she quit smoking 2015. She denies any significant alcohol use. They have a small dog and 2 cats. Primary care physician: Dr. Sammie Coughlin Smoking packs per day: 1 Smoking cigarettes per day:
[2022-06-26] MEDS: methylPREDNISolone SOD SUCC 125 MG VIAL IV PUSH (21:45)
[2022-06-26] MEDS: IPRATROPIUM BR 0.02% INH SOLN 0.5 MG/2.5 ML VIAL INHALATION ×2 (21:59→23:24)
[2022-06-26] MEDS: ALBUTEROL SULFATE NEB 2.5 MG/3 ML INH 5 MG INHALATION ×2 (22:00→23:24)
[2022-06-26 22:11] LABS: Basophils Percent Auto 0.3 % (0.2-1.2); Eosinophils Absolute Auto 0.1 K/mm3 (0-0.3); Eosinophils Percent Auto 1.5 % (0-4.4); Hematocrit 41.2 % (37.0-47.0); Hemoglobin 13.2 g/dL (12.0-15.0); Immature Granulocyte Absolute 0.01 K/mm3 (0.00-0.031); Immature Granulocyte Percent A 0.3 % (0-0.5); Immature Platelet Fraction Pct 20.5 % (0.9-11.2); Lymphocytes Absolute Auto 1.04 K/mm3 (0.9-3.2); Lymphocytes Percent Auto 26.3 % (18.3-44.2); Mean Corpuscular Hemoglobin 28.4 pg (26-34); Mean Corpuscular Volume 88.6 fl (80-100); Mean Platelet Volume 13.8 fl (7.4-10.4); Monocytes Absolute Auto 0.5 K/mm3 (0.1-0.6); Monocytes Percent Auto 11.6 % (2.6-8.5); Neutrophils Absolute Auto 2.4 K/mm3 (1.3-6.7); Platelet Count Result 153 k/mm3 (150-375); Red Blood Count 4.65 M/mm3 (4.2-5.4); Red Cell Distribution Width 13.8 % (11.5-14.5)
[2022-06-26 22:18] LABS: Anion Gap 8 mmol/L (8-16); Blood Urea Nitrogen 16 mg/dL (7-17); Carbon Dioxide 29 mmol/L (22-30); Chloride 101 mmol/L (98-107); Estimated Glomerular Filt Rate > 60; Glucose 116 mg/dL (65-110); Potassium 3.9 mmol/L (3.4-5.0); Sodium 138 mmol/L (137-145)
[2022-06-26 22:21] LABS: Prothrombin Time 12.9 Seconds (11.1-14.7)
[2022-06-26 22:22] LABS: Partial Thromboplastin Time 39.9 SECONDS (22.3-36.8)
[2022-06-26 22:30] LABS: Troponin I < 0.012 ng/mL (0.000-0.034)
[2022-06-26 22:42] LABS: D Dimer 0.54 ug/mL (<0.48)
[2022-06-27] VITALS: PULSE 97; RESP 21; O2SAT 100
[2022-06-27 00:02] VITALS: BP 135/74; PULSE 97; RESP 20; O2SAT 100
[2022-06-27 00:11] VITALS: BP 135/74; PULSE 100; RESP 20; O2SAT 100
[2022-06-27 03:09] VITALS: BP 153/59; PULSE 83; RESP 18; O2SAT 100
== END 2022-06-27 03:20 | disposition home or self-care (01) ==
PROVIDERS: Emergency Provider Physician Assistant; PCP Family Medicine
DX: U07.1 COVID-19 (principal); J43.9 Emphysema, unspecified; R07.89 Other chest pain; I10 Essential (primary) hypertension; K21.9 Gastro-esophageal reflux disease without esophagitis; K58.9 Irritable bowel syndrome, unspecified; J32.2 Chronic ethmoidal sinusitis; M19.90 Unspecified osteoarthritis, unspecified site; M81.0 Age-related osteoporosis without current pathological fracture; Z90.710 Acquired absence of both cervix and uterus; Z98.49 Cataract extraction status, unspecified eye; Z87.891 Personal history of nicotine dependence; R94.31 Abnormal electrocardiogram [ECG] [EKG]
CPT/HCPCS: 36415; 71046; 71275; 80048; 84484; 85025; 85055; 85380; 85610; 85730; 93005; 94640; 96374; 99284; J2930; Q9967

== ENCOUNTER 2022-07-29 06:57 | Outpatient (CLI) | payer MEDICARE, SELFPAY ==
--- NOTE | ~2022-07-29 | XR_ITS ---
Clinical Indication: Code 19 infection, COPD PA and lateral views of the chest: Comparison: 06/26/2022 Findings: The lungs are clear, without evidence of focal consolidation or pleural effusion. Cardiome diastinal silhouette is within normal limits. Bones and soft tissues are unremarkable. Impression: Clear lungs. Reviewed, dictated and finalized at location . ON CONSULTANT Impression: Clear lungs.
[2022-07-29 07:57] LABS: Basophils Percent Auto 0.4 % (0.2-1.2); Eosinophils Absolute Auto 0.2 K/mm3 (0-0.3); Eosinophils Percent Auto 3.6 % (0-4.4); Hematocrit 41.7 % (37.0-47.0); Hemoglobin 12.9 g/dL (12.0-15.0); Immature Granulocyte Absolute 0.01 K/mm3 (0.00-0.031); Immature Granulocyte Percent A 0.2 % (0-0.5); Immature Platelet Fraction Pct 19.2 % (0.9-11.2); Lymphocytes Absolute Auto 1.24 K/mm3 (0.9-3.2); Lymphocytes Percent Auto 23.7 % (18.3-44.2); Mean Corpuscular HGB Conc 30.9 g/dl (32-36); Mean Corpuscular Hemoglobin 27.9 pg (26-34); Mean Corpuscular Volume 90.1 fl (80-100); Mean Platelet Volume 13.6 fl (7.4-10.4); Monocytes Absolute Auto 0.4 K/mm3 (0.1-0.6); Monocytes Percent Auto 6.9 % (2.6-8.5); Neutrophils Absolute Auto 3.4 K/mm3 (1.3-6.7); Neutrophils Percent Auto 65.2 % (45.5-73.1); Platelet Count Result 173 k/mm3 (150-375); Red Blood Count 4.63 M/mm3 (4.2-5.4); Red Cell Distribution Width 14.5 % (11.5-14.5); White Blood Count 5.2 K/mm3 (4.5-10.0)
[2022-07-29 08:05] LABS: Alanine Aminotransferase 21 U/L (6-35); Albumin Level 4.1 g/dL (3.5-5.1); Alkaline Phosphatase 149 U/L (38-126); Anion Gap 5 mmol/L (8-16); Aspartate Amino Transferase 23 U/L (14-36); Bilirubin,Total 0.4 mg/dL (0.2-1.3); Blood Urea Nitrogen 20 mg/dL (7-17); Calcium 9.1 mg/dL (8.4-10.2); Carbon Dioxide 31 mmol/L (22-30); Chloride 104 mmol/L (98-107); Estimated Glomerular Filt Rate > 60; Glucose 101 mg/dL (65-110); Potassium 4.1 mmol/L (3.4-5.0); Sodium 140 mmol/L (137-145)
== END 2022-07-29 06:58 | disposition home or self-care (01) ==
PROVIDERS: PCP Family Medicine; Visit Provider Nurse Practitioner Gerontology
DX: J44.1 Chronic obstructive pulmonary disease with (acute) exacerbation (principal); U07.1 COVID-19
CPT/HCPCS: 36415; 71046; 80053; 85025; 85055

== ENCOUNTER 2022-11-13 12:27 | Outpatient (CLI) | payer MEDICARE, SELFPAY ==
[2022-11-13 13:00] VITALS: PULSE 99; O2SAT 95
[2022-11-13 13:03] VITALS: PULSE 129; O2SAT 87
[2022-11-13 13:05] VITALS: O2SAT 88
[2022-11-13 13:06] VITALS: O2SAT 91
[2022-11-13 13:15] VITALS: PULSE 96; O2SAT 94
--- NOTE | 2022-11-13 14:43 | HOMEO2EVAL ---
Evaluation was performed at [facility] Home Oxygen Evaluation RC: Home Oxygen (O2) Evaluation Start: 11/13/22 14:41 Freq: Status: Active Protocol: RPE Activity Type Activity Date Activity User E-sign Co-sign Detail Recorded Client Recorded Date Recorded By Document 11/13/22 13:00 LINDSAY [email or web address] 11/13/22 14:43 LINDSAY Document 11/13/22 13:03 LINDSAY [email or web address] 11/13/22 14:43 LINDSAY Document 11/13/22 13:05 LINDSAY [email or web address] 11/13/22 14:43 LINDSAY Document 11/13/22 13:06 LINDSAY [email or web address] 11/13/22 14:43 LINDSAY Document 11/13/22 13:15 LINDSAY [email or web address] 11/13/22 14:43 LINDSAY 11/13/22 11/13/22 11/13/22 13:00 13:03 13:05 Home O2 Evaluation [Oxygen] -Test Phase Resting Exercise Exercise -Oxygen Delivery Room Air Room Air Nasal Cannula -Oxygen Flow Rate (L/min) 1 [Pulse Oximetry] -Pulse Oximetry (90-100 %) 95 87 L 88 L [Pulse Rate] -Pulse Rate (60-100 beats/min) 99 129 H [Exercise] -Ambulation Distance (feet) -Ambulation Distance (meters) [Comments] -Home Oxygen Evaluation Comments [Charges] -Treatment Charges O2 Evaluation - Outpatient 11/13/22 11/13/22 13:06 13:15 Home O2 Evaluation [Oxygen] -Test Phase Exercise Resting -Oxygen Delivery Nasal Cannula Room Air -Oxygen Flow Rate (L/min) 2 [Pulse Oximetry] -Pulse Oximetry (90-100 %) 91 94 [Pulse Rate] -Pulse Rate (60-100 beats/min) 96 [Exercise] -Ambulation Distance (feet) 700 -Ambulation Distance (meters) 213.34 [Comments] -Home Oxygen Evaluation Comments NO WALKING AIDS USED PATIENT REQUIRES 2 L HOME O2 WITH ACTIVITY [Charges] -Treatment Charges
== END 2022-11-13 12:28 | disposition home or self-care (01) ==
LOC: ANHLAB 12:27
PROVIDERS: PCP Family Medicine; Visit Provider Physician Assistant
DX: J96.11 Chronic respiratory failure with hypoxia (principal); J44.9 Chronic obstructive pulmonary disease, unspecified
CPT/HCPCS: 94618

== ENCOUNTER 2022-12-30 17:08 | Outpatient (CLI) | payer MEDICARE, SELFPAY ==
--- NOTE | ~2022-12-30 | XR_ITS ---
EXAMINATION: XR chest 2V DATE: 12/30/2022 17:26 INDICATION: Chronic obstructive pulmonary disease, shortness of breath TECHNIQUE: PA and lateral views of the chest are obtained. COMPARISON: 07/29/2022 FINDINGS: The lungs are free of acute opacities. No pleural effusion or pneumothorax. The cardiomedia stinal silhouette is normal. There is moderate thoracic spondylosis. IMPRESSION: 1. No acute cardiopulmonary abnormality. Reviewed, dictated and finalized at location F.
== END 2022-12-30 17:09 | disposition home or self-care (01) ==
PROVIDERS: PCP Family Medicine; Visit Provider Physician Assistant
DX: J44.1 Chronic obstructive pulmonary disease with (acute) exacerbation (principal)
CPT/HCPCS: 71046

== ENCOUNTER 2023-04-21 09:55 | Outpatient (CLI) | payer MEDICARE, SELFPAY ==
--- NOTE | ~2023-04-21 | CT_ITS ---
EXAMINATION: CT lung screening DATE: 04/21/2023 10:32 INDICATION: Personal history of nicotine dependence TECHNIQUE: Computed tomography (CT) of the chest was performed without intravenous contrast. The dose -length product was 74.14 mGy-cm. Automated exposure control and iterative reconstruction technique w ere employed. COMPARISON: CT dated 06/27/2022 FINDINGS: Heart size normal. No significant pleural or pericardial effusion. There are calcified gran ulomas of the liver and spleen. No thoracic lymphadenopathy. There are scattered bilateral nodules th roughout both lungs measuring 3 mm or less there is emphysema. No endobronchial lesions. No pneumotho rax. No focal airspace consolidation. Moderate thoracic spondylosis. IMPRESSION: 1. Lung-RADS category 2: Benign appearance or behavior. Continue annual screening with noncontrast lo w-dose chest CT in 12 months. Reviewed, dictated and finalized at location B. IMPRESSION: 1. Lung-RADS category 2: Benign appearance or behavior. Continue annual screeni ng with noncontrast low-dose chest CT in 12 months.
== END 2023-04-21 09:56 | disposition home or self-care (01) ==
PROVIDERS: PCP Family Medicine; Visit Provider Physician Assistant
DX: Z12.2 Encounter for screening for malignant neoplasm of respiratory organs (principal); Z87.891 Personal history of nicotine dependence
CPT/HCPCS: 71271

== ENCOUNTER 2023-06-20 17:10 | Emergency (ER) | payer MEDICARE, SELFPAY ==
[2023-06-20 17:19] VITALS: BP 135/82; PULSE 83; RESP 22; TEMP 36.7; O2SAT 85
--- NOTE | 2023-06-20 17:23 | ED.GENADULT ---
HPI - General Adult General Chief complaint: Shortness of Breath/Dyspnea Stated complaint: Tetanus shot;Trouble breathing Time Seen by Provider: 06/20/23 17:28 Source: patient, RN notes reviewed and old records reviewed Mode of arrival: ambulatory Limitations: no limitations History of Present Illness HPI narrative: 78-year-old female presents for 2 complaints. Cut her finger and has about a 1/2 cm laceration that occurred about 2 hours prior to arrival, requesting a tetanus shot. Wound is gaping, bleeding is controlled Patient also with 2 weeks of increasing shortness of breath has been using her nebulizer more often. States that she did start smoking again 2 weeks ago and smokes anywhere from a half to 3/4 pack of cigarettes a day. On arrival patient satting 85% with audible wheezing. Talking in 2-3 word sentences. Patient started on a neb treatment, with oxygen Tetanus updated. Onset (ago): week(s) (2-3 weeks SOB) Related Data Allergies Allergy/AdvReac Type Severity Reaction Status Date / Time No Known Allergies Allergy Verified 05/17/23 10:28 Review of Systems Review of Systems: All systems reviewed & are unremarkable except as noted in HPI and below Constitutional: Constitutional: Reports no additional constitutional complaints Eyes: Eyes: Reports no additional eye complaints ENT: Reports system reviewed and no additional complaints, except as documented Cardiovascular: Cardiovascular: Reports as per HPI, Denies chest pain, Reports leg edema (+2), Reports dyspnea, Reports dyspnea on exertion and Reports orthopnea Respiratory: Respiratory: Reports as per HPI, Denies chest congestion, Denies cough, Reports dyspnea, Reports dyspnea on exertion, Denies stridor and Reports wheezing Gastrointestinal: Gastrointestinal: Reports no additional gastrointestinal complaints, Denies abdominal pain, Denies nausea and Denies vomiting Musculoskeletal: Musculoskeletal: Reports no additional musculoskeletal complaints Integumentary/Breasts: Skin/Breast: Reports as per HPI and Reports wounds (left index finger) Neurologic: Reports system reviewed and no additional complaints, except as documented Psychiatric: Psychiatric: Reports no additional psychiatric complaints Allergic/Immunologic: Allergic/Immunologic: Reports no additional allergic/immunologic complaints PMFSH Past Medical History Medical History Acute upper respiratory infection Arthritis Benign hypertension without CHF Chronic ethmoidal sinusitis Chronic pain COPD (chronic obstructive pulmonary disease) PFTs July 2017 demonstrated moderate obstructive ventilatory defect with severe small airway disease. No acute bronchodilator response. Severely decreased DLCO with worsening of her DLCO compared to prior study in November of 2016 COPD (chronic obstructive pulmonary disease) COPD with acute exacerbation Depression with anxiety Diastolic dysfunction Echo September 2017 Emphysema lung GERD (gastroesophageal reflux disease) History of tobacco abuse Insomnia Irritable bowel syndrome (IBS) MDD (major depressive disorder), recurrent episode, moderate Multifocal atrial tachycardia September 2016 Osteoporosis Right radial head fracture Right wrist fracture Surgical History Surgical History H/O hysterectomy for benign disease Due to uterine fibroids in 1996 History of bladder repair surgery History of section History of colonoscopy [address] Garcia History of hemorrhoidectomy History of sinus surgery February [address] Rowe due to chronic maxillary and ethmoid sinusitis Hx of cataract surgery Hx of hysterectomy S/P sinus surgery Family History Family History Sibling Chronic obstructive pulmonary disease Hypertension Lung cancer Brother Mother Acute
[2023-06-20 17:25] VITALS: RESP 20; O2SAT 97
[2023-06-20 17:30] VITALS: PULSE 83; RESP 26; O2SAT 85
--- NOTE | 2023-06-20 17:30 | ECG_ITS ---
Measurements Intervals [place] Rate: 76 P: 68 [place]: 144 QRS: 82 QRSD: 87 T: 45 QT: 367 QTc: 413 Interpretive Statements SINUS RHYTHM POSSIBLE LEFT ATRIAL ENLARGEMENT DELAYED PRECORDIAL R/S TRANSITION ABNORMAL ECG COMPARED TO ECG 06/26/2022 21:14:40 NO SIGNIFICANT CHANGES Electronically Signed On 06-20-2023 20:26:48 TAKER DOWN by Alfredo Chapa D.O.
[2023-06-20] MEDS: IPRATROPIUM BR 0.02% INH SOLN 0.5 MG/2.5 ML VIAL INHALATION (17:33)
[2023-06-20] MEDS: ALBUTEROL SULFATE NEB 2.5 MG/3 ML INH INHALATION (17:34)
--- NOTE | 2023-06-20 17:41 | ECG_ITS ---
Rate CO QRSd QT QTc P QRS T Severity 86 139 95 344 412 62 89 60 Abnormal ECG SINUS RHYTHM CANNOT RULE OUT SEPTAL INFARCT, AGE INDETERMINATE BASELINE ARTIFACT- I, II, III, AVR, AVL, AVF, V1-V6 ABNORMAL ECG COMPARED TO ECG 06/26/2022 21:14:40 NO SIGNIFICANT CHANGES Electronically Signed On 06-21-2023 14:58:47 CELL MANAGER by Alfredo CARVAJAL
[2023-06-20] MEDS: TETANUS,DIPHTHERIA,AC PERTUSSIS ADULT (0.5 ML) BOOSTRIX IM (18:00)
[2023-06-20 18:02] VITALS: PULSE 86; RESP 22; O2SAT 95
== END 2023-06-20 18:00 | disposition short-term general hospital (02) ==
PROVIDERS: Emergency Provider Nurse Practitioner; PCP Family Medicine
DX: R06.00 Dyspnea, unspecified (principal); S61.211A Laceration without foreign body of left index finger without damage to nail, initial encounter; X58.XXXA Exposure to other specified factors, initial encounter; Z23 Encounter for immunization; R94.31 Abnormal electrocardiogram [ECG] [EKG]; F17.210 Nicotine dependence, cigarettes, uncomplicated; M19.90 Unspecified osteoarthritis, unspecified site; I10 Essential (primary) hypertension; J44.9 Chronic obstructive pulmonary disease, unspecified; K21.9 Gastro-esophageal reflux disease without esophagitis; M81.0 Age-related osteoporosis without current pathological fracture
CPT/HCPCS: 90471; 90715; 93005; 94640; 99215; G0463

== ENCOUNTER 2023-06-20 18:20 | Emergency (ER) | payer MEDICARE, SELFPAY ==
--- NOTE | ~2023-06-20 | XR_ITS ---
EXAMINATION: XR chest 2V Exam Date/Time: 06/20/2023 19:05 COIL WINDER STRAP HISTORY: SOB Comparison: 12/30/2022. RESULT: Lines, tubes, and devices: None. Lungs and pleura: Senescent and emphysematous change. Mild diffuse reticular opacities. Cardiomediastinal silhouette: Stable. Other: No acute osseous or upper abdominal finding. IMPRESSION: Mild interstitial edema. Reviewed, dictated and finalized at location K. WINDER STRAP IMPRESSION: Mild interstitial edema.
[2023-06-20 18:20] VITALS: BP 145/69; PULSE 77; RESP 18; TEMP 36.4; O2SAT 97
[2023-06-20 18:26] VITALS: O2SAT 99
[2023-06-20 18:30] VITALS: PULSE 95; RESP 25; O2SAT 92
--- NOTE | 2023-06-20 18:31 | ED.SOB ---
HPI - SOB/Dyspnea General Chief Complaint: Shortness of Breath/Dyspnea Stated Complaint: lac to finger, 80's RA, wheezing Time Seen by Provider: 06/20/23 18:26 History of Present Illness HPI Narrative: Patient is a 78-year-old female with history of COPD here with hypoxia and shortness of breath. Patient states that she has been having worsening shortness of breath over the last few weeks. She did see her stroboscope operator about 3 weeks ago and they had discussed possibly starting her on steroids at that time. She decided to hold off but has had persistent shortness of breath since then. She states that 2 days ago she did contact the pulmonology clinic to discuss possible initiation of steroids however due to the holiday the office was closed. Today she actually went to an Urgent Care after cutting her finger while carving a turkey. She notes that this happened approximately 4-5 hours prior to presentation to this emergency department. She went into the urgent care for a tetanus shot and they did provide her with this. When she came to the urgent care they did notice that her work of breathing with significant and she was hypoxic. Her O2 saturations at the Urgent Care were in the low 80s and she was started on a DuoNeb and placed on oxygen. EMS was called and transported patient into the emergency department. She did get a dose of Solu-Medrol in route by EMS. Denies any chest pain, fever, chills. She does note increased cough and increased sputum production. Related Data Allergies Allergy/AdvReac Type Severity Reaction Status Date / Time No Known Allergies Allergy Verified 05/17/23 10:28 Review of Systems Review of Systems: All systems reviewed & are unremarkable except as noted in HPI and below [facility] Past Medical History Medical History Acute upper respiratory infection Arthritis Benign hypertension without CHF Chronic ethmoidal sinusitis Chronic pain COPD (chronic obstructive pulmonary disease) PFTs July 2017 demonstrated moderate obstructive ventilatory defect with severe small airway disease. No acute bronchodilator response. Severely decreased DLCO with worsening of her DLCO compared to prior study in November of 2016 COPD (chronic obstructive pulmonary disease) COPD with acute exacerbation Depression with anxiety Diastolic dysfunction Echo September 2017 Emphysema lung GERD (gastroesophageal reflux disease) History of tobacco abuse Insomnia Irritable bowel syndrome (IBS) MDD (major depressive disorder), recurrent episode, moderate Multifocal atrial tachycardia September 2016 Osteoporosis Right radial head fracture Right wrist fracture Surgical History Surgical History H/O hysterectomy for benign disease Due to uterine fibroids in 1996 History of bladder repair surgery History of section History of colonoscopy [address] Garcia History of hemorrhoidectomy History of sinus surgery February [address] Rowe due to chronic maxillary and ethmoid sinusitis Hx of cataract surgery Hx of hysterectomy S/P sinus surgery Family History Family History Sibling Chronic obstructive pulmonary disease Hypertension Lung cancer Brother Mother Acute myocardial infarction Mother Family history of premature coronary heart disease, Onset Age: 73 Patient's mother is Sibling Hypertension Family history of elevated blood lipids Family history of alcoholism Family history of diabetes mellitus in first degree relative Other Diabetes mellitus Social History Social History Social History: The patient has been to her for 20 years. They were in a committed relationship for 13 years prior to getting . She has 3 children. Daria
--- NOTE | 2023-06-20 18:33 | ECG_ITS ---
Rate [place] QRSd QT QTc P QRS T Severity 76 144 87 367 413 68 82 45 Borderline ECG SINUS RHYTHM POSSIBLE LEFT ATRIAL ENLARGEMENT DELAYED PRECORDIAL R/S TRANSITION ABNORMAL ECG Electronically Signed On 06-20-2023 20:26:48 QUALITY CONTROL CLERK by Alfredo Chapa D.O. COMPARED TO ECG 06/20/2023 17:41:14 NO SIGNIFICANT CHANGES MTDD
[2023-06-20 18:42] LABS: Basophils Percent Auto 0.6 % (0.2-1.2); Eosinophils Absolute Auto 0.1 K/mm3 (0-0.3); Eosinophils Percent Auto 2.5 % (0-4.4); Hematocrit 44.1 % (37.0-47.0); Hemoglobin 13.8 g/dL (12.0-15.0); Immature Granulocyte Absolute 0.01 K/mm3 (0.00-0.031); Immature Granulocyte Percent A 0.2 % (0-0.5); Immature Platelet Fraction Pct 18.7 % (0.9-11.2); Lymphocytes Absolute Auto 1.27 K/mm3 (0.9-3.2); Mean Corpuscular HGB Conc 31.3 g/dl (32-36); Mean Corpuscular Hemoglobin 27.8 pg (26-34); Mean Corpuscular Volume 88.9 fl (80-100); Mean Platelet Volume 13.4 fl (7.4-10.4); Monocytes Absolute Auto 0.5 K/mm3 (0.1-0.6); Monocytes Percent Auto 9.3 % (2.6-8.5); Neutrophils Absolute Auto 3.4 K/mm3 (1.3-6.7); Neutrophils Percent Auto 63.4 % (45.5-73.1); Platelet Count Result 127 k/mm3 (150-375); Red Blood Count 4.96 M/mm3 (4.2-5.4); Red Cell Distribution Width 14.2 % (11.5-14.5); White Blood Count 5.3 K/mm3 (4.5-10.0)
[2023-06-20] MEDS: AMOXICILLIN/CLAVULANATE K 875-125 MG TAB 1 TABLET PO (18:53)
[2023-06-20 19:05] LABS: Alanine Aminotransferase 21 U/L (6-35); Albumin Level 4.1 g/dL (3.5-5.1); Alkaline Phosphatase 157 U/L (38-126); Anion Gap 9 mmol/L (8-16); Aspartate Amino Transferase 32 U/L (14-36); Bilirubin,Total 0.5 mg/dL (0.2-1.3); Blood Urea Nitrogen 13 mg/dL (7-17); Calcium 9.1 mg/dL (8.4-10.2); Carbon Dioxide 27 mmol/L (22-30); Chloride 101 mmol/L (98-107); Estimated Glomerular Filt Rate > 60; Glucose 99 mg/dL (65-110); Potassium 4.2 mmol/L (3.4-5.0); Sodium 137 mmol/L (137-145)
[2023-06-20 19:09] LABS: NT Pro B Type Natriuretic Pept 84 pg/mL (19.9-100); Troponin I < 0.012 ng/mL (0.000-0.034)
[2023-06-20 21:40] LABS: Influenza A QL RT-PCR Negative (Negative); Influenza B QL RT-PCR Negative (Negative); RSV RNA, RT-PCR Negative (Negative); SARS-CoV-2 RNA PCR Negative (Negative)
[2023-06-20] MEDS: ACETAMINOPHEN 500 MG TABLET 1000 MG PO (22:02)
[2023-06-20 22:03] VITALS: BP 119/61; PULSE 86; RESP 15; O2SAT 96
[2023-06-20 22:05] VITALS: RESP 20
[2023-06-20] MEDS: IPRATROPIUM BR 0.02% INH SOLN 0.5 MG/2.5 ML VIAL INHALATION (22:05)
[2023-06-20] MEDS: ALBUTEROL SULFATE NEB 2.5 MG/3 ML INH INHALATION (22:05)
[2023-06-20 23:29] VITALS: BP 145/74; PULSE 86; RESP 15; O2SAT 93
== END 2023-06-20 23:31 | disposition home or self-care (01) ==
PROVIDERS: Emergency Provider Student in an Organized Health Care Education/Training Program; PCP Family Medicine
DX: J43.9 Emphysema, unspecified (principal); S61.211A Laceration without foreign body of left index finger without damage to nail, initial encounter; Z20.822 Contact with and (suspected) exposure to COVID-19; I10 Essential (primary) hypertension; J32.2 Chronic ethmoidal sinusitis; K21.9 Gastro-esophageal reflux disease without esophagitis; K58.9 Irritable bowel syndrome, unspecified; M81.0 Age-related osteoporosis without current pathological fracture; F41.9 Anxiety disorder, unspecified; F33.9 Major depressive disorder, recurrent, unspecified; Y93.G1 Activity, food preparation and clean up; R94.31 Abnormal electrocardiogram [ECG] [EKG]; W26.9XXA Contact with unspecified sharp object(s), initial encounter
CPT/HCPCS: 12001; 36415; 71046; 80053; 83880; 84484; 85025; 85055; 87637; 90471; 90715; 93005; 94640; 99284; A9270

== ENCOUNTER 2023-09-21 13:10 | Emergency (ER) | payer MEDICARE, SELFPAY ==
[2023-09-21] VITALS (7 sets, daily range): BP systolic 121–154; BP diastolic 61–76; PULSE 88–99; RESP 16–24; TEMP 35.8–36.9; O2SAT 92–98
--- NOTE | ~2023-09-21 | XR_ITS ---
EXAMINATION: XR chest 2V DATE: 09/21/2023 15:58 INDICATION: Shortness of breath. TECHNIQUE: Frontal and lateral views of the chest were obtained. COMPARISON: Chest 2 views 06/20/2023, chest CT 04/21/2023 FINDINGS: There are lucencies in the lungs, consistent with emphysema. No pleural effusion or pneumot horax. The heart size is normal. There are prominent paracardial fat pads. IMPRESSION: 1. Emphysema. Reviewed, dictated and finalized at location A. L MANAGER IMPRESSION: 1. Emphysema.
--- NOTE | 2023-09-21 15:34 | ED.SOB ---
HPI - SOB/Dyspnea General Chief Complaint: Shortness of Breath/Dyspnea <Keyla Sánchez PA-C - Last Filed: 09/21/23 15:41> Stated Complaint: SOB <Keyla Sánchez PA-C - Last Filed: 09/21/23 15:41> Time Seen by Provider: 09/21/23 15:35 <Keyla Sánchez PA-C - Last Filed: 09/21/23 15:41> Focused HPI: Patient is a 78-year-old female, with past medical history of COPD and still smoking, who presents the ED with report of shortness of breath. Patient reports having increased shortness of breath, worse with exertion, over the last 3 days. States she has a home pulse oximeter and her oxygen has dropped as low as 87% on room air. She states she is supposed to wear 2L NC oxygen 15/02, but does not do this regularly. Over the last couple of days, she has been wearing the oxygen for most of the day. She reports cough, congestion, wheezing, intermittent chest pain, intermittent lower extremity swelling. Patient has albuterol inhaler and nebulizer at home but denied improvement with this. GENERAL: Elderly, well-nourished, and in no acute distress. HEAD: Normocephalic, atraumatic. CHEST: Clear to auscultation. Coarse lung sounds bilaterally. Occasional expiratory wheezing bilaterally. HEART: Regular rate and rhythm.? MSK: Trace lower extremity edema bilaterally. NEURO: ?Alert and oriented x3. Patient screened in triage and initial orders placed.? ?Additional care and disposition to be based upon?diagnostic testing and treatment. <Keyla Sánchez PA-C - Last Filed: 09/21/23 15:41> Source: patient <Keyla Sánchez PA-C - Last Filed: 09/21/23 15:41> Mode of arrival: ambulatory <Keyla Sánchez PA-C - Last Filed: 09/21/23 15:41> Limitations: no limitations <Keyla Sánchez PA-C - Last Filed: 09/21/23 15:41> History of Present Illness HPI Narrative: Agree with focused HPI <Favian Lord MD - Last Filed: 09/21/23 19:47> Related Data Allergies/Adverse Reactions: Allergies Allergy/AdvReac Type Severity Reaction Status Date / Time No Known Allergies Allergy Verified 06/28/23 13:04 <Keyla Sánchez PA-C - Last Filed: 09/21/23 15:41> Review of Systems Review of Systems: All systems reviewed & are unremarkable except as noted in HPI and below <Favian Lord MD - Last Filed: 09/21/23 19:47> [facility] Past Medical History Medical History: Medical History Acute upper respiratory infection Arthritis Benign hypertension without CHF Chronic ethmoidal sinusitis Chronic pain COPD (chronic obstructive pulmonary disease) PFTs July 2017 demonstrated moderate obstructive ventilatory defect with severe small airway disease. No acute bronchodilator response. Severely decreased DLCO with worsening of her DLCO compared to prior study in November of 2016 COPD (chronic obstructive pulmonary disease) COPD with acute exacerbation Depression with anxiety Diastolic dysfunction Echo September 2017 Emphysema lung GERD (gastroesophageal reflux disease) History of tobacco abuse Insomnia Irritable bowel syndrome (IBS) MDD (major depressive disorder), recurrent episode, moderate Multifocal atrial tachycardia September 2016 Osteoporosis Right radial head fracture Right wrist fracture <Keyla Sánchez PA-C - Last Filed: 09/21/23 15:41> Surgical History Surgical History: Surgical History H/O hysterectomy for benign disease Due to uterine fibroids in 1996 History of bladder repair surgery History of section History of colonoscopy [address] Garcia History of hemorrhoidectomy History of sinus surgery February [address] Rowe due to chronic maxillary and ethmoid sinusitis Hx of cataract surgery Hx of hysterectomy S/P sinus surgery <Keyla Sánchez PA-C - Last Filed: 09/21/23 15:41> Fa
--- NOTE | 2023-09-21 15:36 | ECG_ITS ---
Measurements Intervals [place] Rate: 90 P: 81 [place]: 142 QRS: 93 QRSD: 89 T: 68 QT: 353 QTc: 433 Interpretive Statements SINUS RHYTHM POSSIBLE LEFT ATRIAL ENLARGEMENT [-0.1mV P WAVE IN V1/V2] BORDERLINE RIGHT AXIS DEVIATION [QRS AXIS > 90] BORDERLINE ECG COMPARED TO ECG 06/20/2023 18:33:06 NO SIGNIFICANT CHANGES Electronically Signed On 09-21-2023 15:44:53 FORMSTONE FITTER by Saman Shook M.D.
[2023-09-21 16:04] LABS: Basophils Percent Auto 0.4 % (0.2-1.2); Eosinophils Percent Auto 0.1 % (0-4.4); Hematocrit 46.6 % (37.0-47.0); Hemoglobin 14.9 g/dL (12.0-15.0); Immature Granulocyte Absolute 0.01 K/mm3 (0.00-0.031); Immature Granulocyte Percent A 0.1 % (0-0.5); Immature Platelet Fraction Pct 20.2 % (0.9-11.2); Lymphocytes Absolute Auto 0.42 K/mm3 (0.9-3.2); Lymphocytes Percent Auto 6.1 % (18.3-44.2); Mean Corpuscular Volume 87.6 fl (80-100); Mean Platelet Volume 13.7 fl (7.4-10.4); Monocytes Absolute Auto 0.1 K/mm3 (0.1-0.6); Neutrophils Absolute Auto 6.4 K/mm3 (1.3-6.7); Neutrophils Percent Auto 92.3 % (45.5-73.1); Platelet Count Result 187 k/mm3 (150-375); Red Blood Count 5.32 M/mm3 (4.2-5.4); Red Cell Distribution Width 14.4 % (11.5-14.5); White Blood Count 6.9 K/mm3 (4.5-10.0)
[2023-09-21 16:08] LABS: Alanine Aminotransferase 18 U/L (6-35); Albumin Level 4.5 g/dL (3.5-5.1); Alkaline Phosphatase 170 U/L (38-126); Anion Gap 4 mmol/L (8-16); Aspartate Amino Transferase 27 U/L (14-36); Bilirubin,Total 0.4 mg/dL (0.2-1.3); Blood Urea Nitrogen 20 mg/dL (7-17); Calcium 9.9 mg/dL (8.4-10.2); Carbon Dioxide 28 mmol/L (22-30); Chloride 104 mmol/L (98-107); Estimated Glomerular Filt Rate > 60; Glucose 135 mg/dL (65-110); Potassium 4.8 mmol/L (3.4-5.0); Sodium 136 mmol/L (137-145)
[2023-09-21 16:19] LABS: NT Pro B Type Natriuretic Pept 61 pg/mL (19.9-100); Troponin I < 0.012 ng/mL (0.000-0.034)
[2023-09-21 16:21] LABS: INR 0.9; Prothrombin Time 12.6 Seconds (11.1-14.7)
[2023-09-21 16:22] LABS: Partial Thromboplastin Time 41.7 SECONDS (22.3-36.8)
[2023-09-21 16:33] LABS: Influenza A QL RT-PCR Negative (Negative); Influenza B QL RT-PCR Negative (Negative); RSV RNA, RT-PCR Negative (Negative); SARS-CoV-2 RNA PCR Negative (Negative)
[2023-09-21] MEDS: ALBUTEROL SULFATE NEB 2.5 MG/3 ML INH INHALATION (17:58)
== END 2023-09-21 18:46 | disposition home or self-care (01) ==
PROVIDERS: Physician Assistant; Emergency Provider Emergency Medicine; PCP Family Medicine
DX: J43.9 Emphysema, unspecified (principal); Z20.822 Contact with and (suspected) exposure to COVID-19; I10 Essential (primary) hypertension; J32.2 Chronic ethmoidal sinusitis; K21.9 Gastro-esophageal reflux disease without esophagitis; K58.9 Irritable bowel syndrome, unspecified; M19.90 Unspecified osteoarthritis, unspecified site; Z99.81 Dependence on supplemental oxygen; F41.8 Other specified anxiety disorders; F17.210 Nicotine dependence, cigarettes, uncomplicated; M81.0 Age-related osteoporosis without current pathological fracture; Z90.710 Acquired absence of both cervix and uterus; Z98.49 Cataract extraction status, unspecified eye
CPT/HCPCS: 36415; 71046; 80053; 83880; 84484; 85025; 85055; 85610; 85730; 87637; 93005; 94640; 99284

== ENCOUNTER 2023-10-13 12:32 | Outpatient (CLI) | payer MEDICARE, SELFPAY ==
[2023-10-13 12:50] VITALS: PULSE 98; O2SAT 94
[2023-10-13 13:10] VITALS: PULSE 117; O2SAT 93
[2023-10-13 13:15] VITALS: PULSE 100; O2SAT 96
--- NOTE | 2023-10-13 13:23 | HOMEO2EVAL ---
Evaluation was performed at [facility] Home Oxygen Evaluation RC: Home Oxygen (O2) Evaluation Start: 10/13/23 13:20 Freq: Status: Active Protocol: RPE Activity Type Activity Date Activity User E-sign Co-sign Detail Recorded Client Recorded Date Recorded By Document 10/13/23 12:50 DJO [email or web address] 10/13/23 13:22 DJO Document 10/13/23 13:10 [email or web address] [email or web address] 10/13/23 13:22 DJO Document 10/13/23 13:15 [email or web address] [email or web address] 10/13/23 13:22 DJO 10/13/23 10/13/23 10/13/23 12:50 13:10 13:15 Home O2 Evaluation [Oxygen] -Test Phase Resting Exercise Resting -Oxygen Delivery Room Air Room Air Room Air [Pulse Oximetry] -Pulse Oximetry (90-100 %) 94 93 96 [Pulse Rate] -Pulse Rate (60-100 beats/min) 98 117 H 100 [Exercise] -Ambulation Distance (feet) 500 -Ambulation Distance (meters) 152.39 [Charges] -Evaluation Charges O2 Evaluation by Pulmonary
== END 2023-10-13 12:33 | disposition home or self-care (01) ==
LOC: ANHPFT 12:33
PROVIDERS: PCP Family Medicine; Visit Provider Physician Assistant
DX: J44.9 Chronic obstructive pulmonary disease, unspecified (principal); J96.11 Chronic respiratory failure with hypoxia
CPT/HCPCS: 94618

== ENCOUNTER 2024-05-01 14:55 | Outpatient (CLI) | payer MEDICARE, SELFPAY ==
--- NOTE | ~2024-05-01 | CT_ITS ---
CT Scan of the Chest without Contrast: Clinical Indication: Lung cancer screening, nicotine dependence Technique: Contiguous sections were acquired throughout the chest without intravenous contrast. Dose reduction technique was used on this scan by utilizing automated exposure control and iterative recon struction technique. The dose-length product (DLP) was 71.13 mGy-cm. COMPARISON: 04/21/2023 Findings: There is no evidence of any significant mediastinal, hilar or axillary lymphadenopathy. Coronary marcus ry calcifications are present. There is no evidence of pleural or pericardial effusion. Several tiny peripheral right upper lobe pulmonary nodules are present. There is mild emphysema. Images through the upper abdomen reveal no abnormalities. Impression: Lung RADS 2: Benign appearance. 12 month follow-up screening CT advised. Reviewed, dictated and finalized at location . Impression: Lung RADS 2: Benign appearance. 12 month follow-up screening CT advised.
== END 2024-05-01 14:56 | disposition home or self-care (01) ==
PROVIDERS: PCP Family Medicine; Visit Provider Physician Assistant
DX: Z12.2 Encounter for screening for malignant neoplasm of respiratory organs (principal); Z87.891 Personal history of nicotine dependence
CPT/HCPCS: 71271

== ENCOUNTER 2024-08-19 09:42 | Emergency (ER) | payer MEDICARE, SELFPAY ==
--- NOTE | ~2024-08-19 | XR_ITS ---
EXAMINATION: XR chest 2V DATE: 08/19/2024 10:39 INDICATION: Cough TECHNIQUE: frontal and lateral views of the chest were obtained. COMPARISON: Chest radiograph dated 09/21/[address] dated 05/01/2024 FINDINGS: Calcified nodule at the basilar left lower lobe calcified left hilar lymph nodes consistent with sequ rachana of old granulomatous disease. No other airspace opacities, pulmonary edema, pleural effusion or p neumothorax. Heart size is normal. Mild lower thoracic levocurvature with moderate spondylosis. IMPRESSION: 1. No acute cardiopulmonary disease. Reviewed, dictated and finalized at location A. R STITCHER
--- OUTSIDE RECORDS SUMMARY | 2024-08-19 09:45 | XMS_ITS | Clinical Summary ---
Author Organization [facility] Address [address] [place] [address]. [place], [place] [address] [place], [place] [id number] Care Team Providers Care Packaging Engineer Name Role Phone Unavailable Primary Care Provider Unavailabl e Social History Tobacco Use Types Packs/Day Years Used Date Smoking Tobacco: Never Assessed Comments Unknown Sex and Gender Information Value Date Recorded Sex Assigned at Not on file Legal Sex Female 7:08 PM CDT Gender Identity Not on file Sexual Orientation Not on file Plan of Treatment Health Maintenance Due Date Last Done Comments Hepatitis C 02[birth year]03/1963 DTaP, Tdap and Td Vaccines ( 1 - Tdap) 1965 Zoster Vaccines (1 of 2) 02/03/1996 Dexa Scan (General) 2011 Pneumococcal Vaccine: 65+ Ye ars (1 of 1 - PCV) 2011 RSV Immunization or 60+ Years (1 - 1-dose 75+ series) 2021 COVID-19 Vaccine ( - 2023-2 5 season) 2024 Influenza Adult (#1) 2024 Meningococcal B Vaccine Aged Out No l onger eligible based on patient's age to complete this topic Meningococcal Vaccine Aged Out No ishmael ting eligible based on patient's age to complete this topic RSV Immunizations Under 20 Months Aged Out No longer eligible based on patient's age to complete this topic
--- OUTSIDE RECORDS SUMMARY | 2024-08-19 09:45 | XMS_ITS | Continuity of Care Document ---
Author Organization [facility] Address [address] [place] [address] Phone Care Team Providers Care Contracts Administrator Name Role Phone Biju Hurt MD Unavailable Unavailable Advance Directives Directive Yes / No Effective Date File Name No Information Encounters Encounter Description Practice Location Reason(s) For Visit Diagnoses Date Provider Providers Copied on Encounter [facility], [address], [place], [place], [id number], [place] tel:[phone] [facility] No Information [address] [facility], [address], [place], [place], [id number], [place]. tel:[phone] Referring Provider: Marty Altamirano MD, [address], [place], [address]. tel:[phone] Family History Family Member Type Diagnosis Age At Onset No Information Payers Payer name Insurance type Covered libertarian ID Authoriza tion(s) Medicare [facility] [id number] [facility] CI [id number] Social History Type Description Quantity Date Captured Comments Sex Female Smoking Status No Information Chief Complaint And Reason For Visit No Information Reason For Referral Reason For Referral No Information History Of Present Illness Encounter Date Complaint History Of Prese nt Illness No Information Functional Status Date Functional Assessmen t No Information Instructions Date Instruction Additional Infor mation No Information Assessments Type Assessment Date No Information Patient Care Teams Name Effective Dates (start - stop) Status Members No Information
--- OUTSIDE RECORDS SUMMARY | 2024-08-19 09:47 | XMS_ITS | Continuity of Care Document ---
Author Organization [facility] Address [address] [place] [address] Phone Care Team Providers Care Glass Toughening Operator Name Role Phone Biju Hurt MD Unavailable Unavailable Advance Directives Directive Yes / No Effective Date File Name No Information Encounters Encounter Description Practice Location Reason(s) For Visit Diagnoses Date Provider Providers Copied on Encounter [facility], [address], [place], [place], [id number], [place] tel:[phone] [facility] No Information [address] [facility], [address], [place], [place], [address], [place]. tel:[phone] Referring Provider: Marty Altamirano MD, [address], [place], [address]. tel:[phone] Family History Family Member Type Diagnosis Age At Onset No Information Payers Payer name Insurance type Covered green party ID Authoriza tion(s) Medicare [facility] [id number] [facility] CI [id number] Social History Type Description Quantity Date Captured [...]
[2024-08-19 09:52] VITALS: BP 138/72; PULSE 105; RESP 20; O2SAT 95
--- NOTE | 2024-08-19 10:27 | ED.GENADULT ---
HPI - General Adult General Chief complaint: Upper Respiratory Infection Stated complaint: headache, sore throat, ear prob, has COPD Source: patient Mode of arrival: ambulatory Limitations: no limitations History of Present Illness HPI narrative: Patient presents for evaluation of sick symptoms. She indicates she has a chronic cough and SOB 2/2 COPD. Her respiratory symptoms worsened in the past week with change in weather to very cold temperatures. She called her wholesale buyer who sent in a script for prednisone. She did not pick it up. She has been using neb treatments four to five times per day and also her albuterol MDI about five times per day. She also tried taking sudafed for her symptoms. Last night she developed a headache and sore throat, which prompted her to come in today. No fever, chills nausea, vomiting, diarrhea. No recent sick contacts to her knowledge. She is a former smoker. Related Data Allergies Allergy/AdvReac Type Severity Reaction Status Date / Time No Known Allergies Allergy Verified 05/22/24 13:59 Review of Systems Review of Systems: CONSTITUTIONAL: Denies fever, chills, or sweats. EYES: Denies visual changes, redness, or discharge. ENT: Reports sore throat Denies rhinorrhea, congestion, or otalgia. CARDIOVASCULAR: Denies chest pain, palpitations, or edema. RESPIRATORY: Reports cough and shortness of breath. GASTROINTESTINAL: Denies abdominal pain, nausea, vomiting, or diarrhea. GENITOURINARY: Denies dysuria or hematuria. SKIN: Denies rash or itching. MUSCULOSKELETAL: Denies back pain, joint pain, or myalgia. NEUROLOGIC: Reports headache. Denies numbness, dizziness, or weakness. PSYCHIATRIC: Denies anxiety or depression. [facility] Past Medical History Medical History (Reviewed 08/19/24 @ 10:30 by Levi Torres, [facility], ) Emphysema lung Insomnia Arthritis Chronic pain Chronic ethmoidal sinusitis Right radial head fracture History of tobacco abuse GERD (gastroesophageal reflux disease) MDD (major depressive disorder), recurrent episode, moderate COPD (chronic obstructive pulmonary disease) Benign hypertension without CHF 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 No acute bronchodilator response. Severely decreased DLCO with worsening of her DLCO compared to prior study in November of 2016 Acute upper respiratory infection COPD with acute exacerbation Surgical History Surgical History (Reviewed 08/19/24 @ 10:30 by Levi Torres, [facility], ) S/P sinus surgery Hx of cataract surgery Hx of hysterectomy History of colonoscopy [address] Garcia History of sinus surgery February [address] Rowe due to chronic maxillary and ethmoid sinusitis History of section History of bladder repair surgery History of hemorrhoidectomy H/O hysterectomy for benign disease Due to uterine fibroids in 1996 Family History Family History (Reviewed 08/19/24 @ 10:30 by Levi Torres, [facility], ) Sibling Chronic obstructive pulmonary disease Hypertension Lung cancer Brother Mother Acute myocardial infarction Mother Family history of premature coronary heart disease, Onset Age: 73 Patient's mother is Sibling Hypertension Family history of elevated blood lipids Family history of alcoholism Family history of diabetes mellitus in first degree relative Other Diabetes mellitus Social History Social History (Reviewed 08/19/24 @ 10:30 by Levi Torres, [facility], ) Social History: The patient has been to her for 20 years. They were in a committed relationship for 13 years prior to getting . She has 3 children. Patient reported that she quit smoking 2015. She denies any significant alcohol use. They have a small dog and 2 cats. Primary care physician: Dr. Sammie Coughlin Smoking packs per day: 1 Smoking cigarettes per day: 20.0 Years smoked: 52 Smoking pack-years: 52.00 Smoking status: Current every day smoker Tobacco type: cigarettes Second hand tobacco smoke exposure: Yes Alcohol intake: never Substance use: never Substance use type: does not use Lack of Transportation: No Lack of Food: Never True Current Housing: I Have Housing Concerned About Future Housing: No Difficulty Paying Gas/Electric Bills: No Difficulty Paying for Meds: No Currently Unemployed: YES Education: Decline to Answer Difficulty w/ Childcare or Family Care: No Living arrangements: with family Occupation/Education: retired Gender identity (if verbalized by the patient): Female Sexual Orientation (if Verbalized by the Patient): Straight or Heterosexual Spiritual care concerns: No Agree to blood products: Yes Exam Narrative: GENERAL: Well-appearing, well-nourished, and in no acute distress. HEAD: Normocephalic, atraumatic. EYES: PERRLA and EOMI. ENT: Nares clear, no rhinorrhea or epistaxis. Mucous membranes moist. Oropharynx without tonsillar hypertrophy exudate or other lesions. Bilateral TMs pearly rizzo nonbulging NECK: Supple. No adenopathy or masses. No carotid bruits or JVD CHEST: Wheezing noted in posterior lung rice bilaterally. Cough present on exam. HEART: Regular rate and rhythm. No murmur heard. Normal peripheral pulses. ABDOMEN: Soft, nontender, nondistended, normal active bowel sounds. EXTREMITIES: Normal range of motion. No edema. SKIN: Warm, dry, no rash. NEURO: No focal deficits. Alert and oriented x3. PSYCH: Normal mood and affect. Course Course Emergency Course: This is a 79 year old female who presented for evaluation of sick symptoms. CXR negative for pneumonia. Strep, COVID and flu negative. Will send throat culture. Advised she follow up with pulmonology and pulmonary nodule. Through shared decision making opted to proceed with Augmentin. rn house supervisor prednisone as previously planned. Increase hydration. Eget-[id number] agents for symptom management. Follow up with primary provider. Go to the ER for worsening symptoms. Patient in agreement with plan of care. Level of Care: Express Care Visit Vital Signs Vital signs: Vital Signs Pulse Rate 105 H 08/19/24 09:52 Respiratory Rate 08/19/24 09:52 Blood Pressure 138/72 08/19/24 09:52 Pulse Oximetry 95 08/19/24 09:52 Oxygen Delivery Room Air 08/19/24 09:52 Pulse Rate 105 H 08/19/24 09:52 Respiratory Rate 08/19/24 09:52 Blood Pressure 138/72 08/19/24 09:52 Pulse Oximetry 95 08/19/24 09:52 Oxygen Delivery Room Air 08/19/24 09:52 Medical Decision Making Vital Signs Vital Signs: Vital Signs Pulse Rate 105 H 08/19/24 09:52 Respiratory Rate 08/19/24 09:52 Blood Pressure 138/72 08/19/24 09:52 Pulse Oximetry 95 08/19/24 09:52 Oxygen Delivery Room Air 08/19/24 09:52 Pulse Rate 105 H 08/19/24 09:52 Respiratory Rate 20 08/19/24 09:52 Blood Pressure 138/72 08/19/24 09:52 Pulse Oximetry 95 08/19/24 09:52 Oxygen Delivery Room Air 08/19/24 09:52 Lab Data Labs: Lab Results 08/19/24 Range/Units 10:30 POC Influenza A Ag Negative (Negative) POC Influenza B Ag Negative (Negative) POC SARS CoV-2 Ag Negative (Negative) POC Grp A Strep Screen Negative (Negative) Imaging Data Radiologist's impression: EXAMINATION: XR chest 2V DATE: 08/19/2024 10:39 INDICATION: Cough TECHNIQUE: frontal and lateral views of the chest were obtained. COMPARISON: Chest radiograph dated 09/21/[address] dated 05/01/2024 FINDINGS: Calcified nodule at the basilar left lower lobe calcified left hilar lymph nodes consistent with sequela of old granulomatous disease. No other airspace opacities, pulmonary edema, pleural effusion or pneumothorax. Heart size is normal. Mild lower thoracic levocurvature with moderate spondylosis. IMPRESSION: 1. No acute cardiopulmonary disease Discharge Plan Discharge Clinical Impression: COPD exacerbation, Pharyngitis, Pulmonary nodule Patient Disposition: Home, Self-Care Condition: Stable Instructions: Antibiotic Form, Pharyngitis (ED), COPD (Chronic Obstructive Pulmonary Disease) (DC), Pulmonary Nodules (ED) Additional Instructions: PLEASE FOLLOW UP WITH YOUR ACCESS SERVICES REPRESENTATIVE REGARDING ABNORMAL CHEST X RAY AND PULMONARY NODULE Patient Language: Welsh Prescriptions: New amoxicillin-pot clavulanate 875-125 mg tablet 1 tablet PO Q12H Qty: 20 0RF No Action cholecalciferol (vitamin D3) 1,250 mcg (50,000 unit) capsule 1,250 mcg PO WEEKLY Qty: 14 3RF spironolactone 25 mg tablet See Rx Instructions .ROUTE .COMPLEX Qty: 90 0RF Dose Instruction: Take 1 tablet by mouth once daily Rx Instructions: Take 1 tablet by mouth once daily furosemide 40 mg tablet See Rx Instructions .ROUTE .COMPLEX Qty: 90 0RF Dose Instruction: Take 1 tablet by mouth once daily Rx Instructions: Take 1 tablet by mouth once daily metoprolol tartrate 50 mg tablet See Rx Instructions .ROUTE .COMPLEX Qty: 180 1RF Dose Instruction: TAKE 1 TABLET BY MOUTH EVERY 12 HOURS Rx Instructions: TAKE 1 TABLET BY MOUTH EVERY 12 HOURS Trelegy Ellipta 100-62.5-25 mcg blister with device See Rx Instructions .ROUTE .COMPLEX Qty: 60 11RF Dose Instruction: Inhale 1 puff by mouth once daily Rx Instructions: Inhale 1 puff by mouth once daily albuterol sulfate 90 mcg/actuation HFA aerosol inhaler See Rx Instructions .ROUTE .COMPLEX Qty: 9 3RF Dose Instruction: INHALE 1 TO 2 PUFFS BY MOUTH EVERY 4 TO 6 HOURS NEEDED FOR SHORTNESS OF BREATH FOR WHEEZING Rx Instructions: INHALE 1 TO 2 PUFFS BY MOUTH EVERY 4 TO 6 HOURS NEEDED FOR SHORTNESS OF BREATH FOR WHEEZING losartan-hydrochlorothiazide 50-12.5 mg tablet 1 tablet PO DAILY Qty: 90 1RF albuterol sulfate 2.5 mg /3 mL (0.083 %) solution for nebulization See Rx Instructions .ROUTE .COMPLEX Qty: 180 5RF Dose Instruction: USE 1 VIAL IN NEBULIZER EVERY 4 TO 6 HOURS NEEDED FOR SHORTNESS OF BREATH AND FOR WHEEZING Rx Instructions: USE 1 VIAL IN NEBULIZER EVERY 4 TO 6 HOURS NEEDED FOR SHORTNESS OF BREATH AND FOR WHEEZING azelastine 137 mcg (0.1 %) spray,non-aerosol 137 mcg intranasal QHS Qty: 30 0RF Rx Instructions: administer into each nostril fluticasone propionate 50 mcg/actuation spray,suspension 1 spray intranasal DAILY Qty: 16 0RF Rx Instructions: administer into each nostril temazepam 7.5 mg capsule 7.5 mg PO QHS PRN (Reason: sleep) Qty: 30 0RF Follow-up/Referrals: Madyson,Sammie Rivas MD [Primary Care Provider] - Time of Disposition: 11:14
[2024-08-19 10:49] LABS: EDCOVIDSCREEN Negative (Negative); EDINFLUASCREEN Negative (Negative); EDINFLUBSCREEN Negative (Negative); EDSTREPNEGPOS1 Negative (Negative)
== END 2024-08-19 11:22 | disposition home or self-care (01) ==
PROVIDERS: Emergency Provider Nurse Practitioner; PCP Family Medicine
DX: J44.1 Chronic obstructive pulmonary disease with (acute) exacerbation (principal); J02.9 Acute pharyngitis, unspecified; R91.1 Solitary pulmonary nodule; J43.9 Emphysema, unspecified; K21.9 Gastro-esophageal reflux disease without esophagitis; M81.0 Age-related osteoporosis without current pathological fracture; F41.8 Other specified anxiety disorders; F17.210 Nicotine dependence, cigarettes, uncomplicated; Z20.822 Contact with and (suspected) exposure to COVID-19
CPT/HCPCS: 71046; 87081; 87426; 87804; 87880; 99213; G0463

== ENCOUNTER 2024-10-20 21:04 | Inpatient (IN) | payer MEDICARE, SELFPAY ==
[2024-10-20] VITALS (14 sets, daily range): BP systolic 143–151; BP diastolic 68–77; PULSE 89–105; RESP 18–29; TEMP 36.5; O2SAT 89–100
--- NOTE | ~2024-10-20 | XR_ITS ---
XR chest 1V portable Ordering provider: Bill Contreras MD History: 79 years Female with . Dyspnea . Comparison: August 19, 2024 FINDINGS: MEDIASTINUM: The cardiac silhouette is not enlarged. LUNGS: No infiltrates, effusions or pneumothorax. Prominent markings in the lower lobes. Underlying fibrotic changes are possible. OTHER: No free air under the diaphragm. IMPRESSION: No evidence of pneumonia, pneumothorax or effusion. Prominent markings with minimal interstitial changes. Underlying fibrotic changes are possible. Reviewed, dictated and finalized at location A. IMPRESSION: No evidence of pneumonia, pneumothorax or effusion. Prominent markings with minimal interstitial changes. Underlying fibrotic medley es are possible.
--- OUTSIDE RECORDS SUMMARY | 2024-10-20 21:06 | XMS_ITS | Continuity of Care Document ---
Author Organization [facility] Address [address] [place] [address] Phone Care Team Providers Care Program Director Scouting Name Role Phone Biju Hurt MD Unavailable Unavailable Advance Directives Directive Yes / No Effective Date File Name No Information Encounters Encounter Description Practice Location Reason(s) For Visit Diagnoses Date Provider Providers Copied on Encounter [facility], [address], [place], [place], [id number], [place] tel:[phone] [facility] No Information [address] [facility], [address], [place], [place], [address], [place]. tel:[phone] Referring Provider: Marty Altamirano MD, [address], [address]. tel:[phone] Family History Family Member Type Diagnosis Age At Onset No Information Payers Payer name Insurance type Covered green party ID Authoriza tion(s) Medicare [facility] [id number] [facility] CI [id number] Social History Type Description Quantity Date Captured [...]
--- OUTSIDE RECORDS SUMMARY | 2024-10-20 21:06 | XMS_ITS | Clinical Summary ---
Author Organization [facility] Address [address] [place] [address] Care Team Providers Care Manufacturing Engineer Machining Name Role Phone Unavailable Primary Care Provider [...] - 1-dose 75+ series) 2021 COVID-19 Vaccine (2023-2 5 season) 2024 Influenza Adult (#1) 2024 [...]
--- NOTE | 2024-10-20 21:32 | PC.NURSE ---
this rn updated patient home medications.
--- OUTSIDE RECORDS SUMMARY | 2024-10-20 21:37 | XMS_ITS | Continuity of Care Document ---
Author Organization [facility] Address [address] [place] [address] Phone Care Team Providers Care Gas Well Drilling Manager Name Role Phone Biju Hurt MD Unavailable Unavailable Advance Directives Directive Yes / No Effective Date File Name No Information Encounters Encounter Description Practice Location Reason(s) For Visit Diagnoses Date Provider Providers Copied on Encounter [facility], [address], [place], [place], [id number], [place] tel:[phone] [facility] No Information [address] [facility], [address], [place], [place], [address], [place]. tel:[phone] Referring Provider: Marty Altamirano MD, [address], [place], [address]. tel:[phone] Family History Family Member Type Diagnosis Age At Onset No Information Payers Payer name Insurance type Covered green party ID Authoriza tion(s) Medicare [facility] [id number] [facility] CI [id number] Social History Type Description Quantity Date Captured [...]
--- OUTSIDE RECORDS SUMMARY | 2024-10-20 21:37 | XMS_ITS | Clinical Summary ---
Author Organization [facility] Address [address] [place] [address] Care Team Providers Care Assembly Repairer Name Role Phone Unavailable Primary Care Provider [...]
--- NOTE | 2024-10-20 21:38 | ECG_ITS ---
Test Date: 2024-10-20 22:15:28 Measurements Intervals [place] Rate: 84 P: 70 WV: 144 QRS: 102 QRSD: 89 T: 58 QT: 349 QTc: 413 Interpretive Statements SINUS RHYTHM RIGHT AXIS DEVIATION ABNORMAL ECG No previous ECG available for comparison Electronically Signed On 10-21-2024 10:00:59 CDT by Levi Coppola M.D.
[2024-10-20] MEDS: IPRATROPIUM 0.5 MG/ALBUTEROL SULFATE 2.5 MG AMPUL.NEB 3 ML 12 ML INHALATION (21:50)
[2024-10-20 21:57] LABS: Fractional Inspired Oxygen 24 %; HCO3 VBG 33.3 mEq/l (24.0-30.0); pH VBG 7.264 (7.300-7.400)
[2024-10-20 21:58] LABS: Device NASAL CANNULA; PCO2 VBG 75.2 mmHg (42.0-48.0); PO2 VBG < 27.0 mmHg (35.0-45.0)
[2024-10-20 22:00] LABS: Basophils Percent Auto 0.5 % (0.2-1.2); Eosinophils Absolute Auto 0.1 K/mm3 (0-0.3); Eosinophils Percent Auto 2.1 % (0-4.4); Hematocrit 46.6 % (37.0-47.0); Hemoglobin 14.9 g/dL (12.0-15.0); Immature Granulocyte Absolute 0.01 K/mm3 (0.00-0.031); Immature Granulocyte Percent A 0.2 % (0-0.5); Lymphocytes Absolute Auto 1.55 K/mm3 (0.9-3.2); Lymphocytes Percent Auto 23.3 % (18.3-44.2); Mean Corpuscular Hemoglobin 27.7 pg (26-34); Mean Corpuscular Volume 86.8 fl (80-100); Mean Platelet Volume 12.6 fl (7.4-10.4); Monocytes Absolute Auto 0.4 K/mm3 (0.1-0.6); Monocytes Percent Auto 5.9 % (2.6-8.5); Neutrophils Absolute Auto 4.5 K/mm3 (1.3-6.7); Platelet Count Result 178 k/mm3 (150-375); Red Blood Count 5.37 M/mm3 (4.2-5.4); Red Cell Distribution Width 14.6 % (11.5-14.5); White Blood Count 6.7 K/mm3 (4.5-10.0)
[2024-10-20 22:10] LABS: Alanine Aminotransferase 20 U/L (6-35); Albumin Level 4.1 g/dL (3.5-5.1); Alkaline Phosphatase 161 U/L (38-126); Anion Gap 8 mmol/L (4-12); Aspartate Amino Transferase 21 U/L (14-36); Bilirubin,Total 0.3 mg/dL (0.2-1.3); Blood Urea Nitrogen 16 mg/dL (7-17); Calcium 9.1 mg/dL (8.4-10.2); Carbon Dioxide 31 mmol/L (22-30); Chloride 99 mmol/L (98-107); Estimated Glomerular Filt Rate > 60; Glucose 123 mg/dL (65-110); Potassium 3.9 mmol/L (3.4-5.0); Sodium 138 mmol/L (137-145)
[2024-10-20] MEDS: SODIUM CHLORIDE 0.9% IV 1,000 ML 999 ML IV CONT (22:13)
[2024-10-20] MEDS: dexAMETHasone SOD PHOS INJ 10 MG/ML 1 ML VIAL IV PUSH (22:13)
[2024-10-20] MEDS: MAGNESIUM SULF 2 GM/WATER 50ML 2 GM/50 ML BAG IVPB (22:13)
[2024-10-20 22:35] LABS: Influenza A QL RT-PCR Negative (Negative); Influenza B QL RT-PCR Negative (Negative); RSV RNA, RT-PCR Negative (Negative); SARS-CoV-2 RNA PCR Positive (Negative)
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
[2024-10-21] VITALS (24 sets, daily range): BP systolic 106–132; BP diastolic 42–79; PULSE 71–96; RESP 17–22; TEMP 36.5–36.6; O2SAT 90–99; BMI 27.9
--- NOTE | 2024-10-21 | ECHO_ITS ---
Patient Info Name: Abigail Martinez Age: 79 years : 1945 Gender: Female Ht: 58 in Wt: 139 lbs BSA: 1.63 m2 HR: 86 bpm BP: 132 / 42 mmHg Heart Rhythm: Sinus Rhythm Technical Quality: Fair Exam Date: 10/21/2024 1:40 PM Exam Location: Echo Lab Patient Status: Inpatient Admit Date: 10/21/2024 Staff Ordering Physician: Bianca Perry APRN Nurse Advisor: Marcelina Harris RDCS Attending Provider: Beba Tierney DO Referring Physician: Orlando TREVINO; Exam Type: CA echo doppler color flow Study Info Indications - Edema - Hypoxia Complete two-dimensional, color flow and Doppler transthoracic echocardiogram is performed. Summary 1. Complete two-dimensional, color flow and Doppler transthoracic echocardiogram is performed. 2. Left ventricular chamber dimension is normal. 3. Left ventricular systolic function is hyperdynamic, estimated at >70%. 4. There is mildly increased left ventricular wall thickness. 5. The left ventricular diastolic function is grade I diastolic dysfunction. 6. Left atrial chamber dimension is mildly enlarged. 7. There is mild tricuspid valve regurgitation. Left Ventricle Left ventricular chamber dimension is normal. Left ventricular systolic function is hyperdynamic, estimated at >70%. There is mildly increased left ventricular wall thickness. The left ventricular diastolic function is grade I diastolic dysfunction. Right Ventricle Right ventricular chamber dimension is normal. Right ventricular systolic function is normal. Left Atria Left atrial chamber dimension is mildly enlarged. Right Atria Right atrial chamber dimension is normal. Atrial Septum Intact interatrial septum visualized by color flow imaging. Aortic Valve The aortic valve is trileaflet. There is mild aortic valve sclerosis. There is no aortic valve stenosis. There is trace aortic valve regurgitation. Pulmonic Valve The pulmonic valve is normal. There is no pulmonic valve stenosis. There is trace pulmonic regurgitation. Mitral Valve The mitral valve has normal leaflets. There is no mitral valve stenosis. There is trace mitral valve regurgitation. Tricuspid Valve The tricuspid valve leaflets are normal. There is no significant tricuspid valve stenosis. There is mild tricuspid valve regurgitation. No pulmonary hypertension, estimated pulmonary arterial systolic pressure is 25 mmHg. Pericardium/Pleural The pericardium appears epicardial fat pad. There is trivial pericardial effusion. Inferior Vena Cava Normal inferior vena cava with >50% collapse upon inspiration consistent with normal right atrial pressure, 5 mmHg. Aorta The aortic root size at the sinus of Valsalva is normal. Left Ventricular Outflow Tract Name Value Normal LVOT 2D LVOT Diameter 2.0 cm LVOT Doppler LVOT Peak Gradient 6 mmHg LVOT Mean Gradient 3 mmHg LVOT VTI 26 cm LVOT VTI/AV VTI Ratio 0.7 LVOT Stroke Volume 85 ml LVOT CO 6.8 l/min LVOT CI 4.2 l/min/m2 Pulmonic Valve Name Value Normal RVOT Doppler RVOT Peak Gradient 3 mmHg PV Doppler PV Peak Gradient 5 mmHg Mitral Valve Name Value Normal MV Doppler MV Decel Price 237 cm/s2 MV PHT 89 ms MV Area (PHT) 2.5 cm2 4.0-5.0 MV Diastolic Function MV E Peak Velocity 72 cm/s MV A Peak Velocity 95 cm/s MV E/A 0.8 MV Decel Time 306 ms MV Annular TDI MV E/e' (Septal) 12.9 <=8.0 MV E/e' (Lateral) 9.9 <=8.0 MV E/e' (Average) 11.4 Tricuspid Valve Name Value Normal TV Regurgitation Doppler TR Peak Velocity 223 cm/s TR Peak Gradient 20 mmHg Estimated PAP/RSVP RA Pressure 5 mmHg <=5 PA Systolic Pressure 25 mmHg <36 RV Systolic Pressure 25 mmHg <36 Aortic Valve Name Value Normal AV Doppler AV Peak Velocity 178 cm/s AV Peak Gradient 13 mmHg AV Mean Gradient 6 mmHg AV VTI 37 cm AV Area (Cont Eq VTI) 2.3 cm2 >=3.0 AV Area (Cont Eq Fred) 2.3 cm2 AV Regurgitation 2D LVOT Area 3.2 cm2 Ventricles Name Value Normal LV Dimensions 2D/MM IVS Diastolic Thickness (2D) 1.0 cm 0.6-1.0 LVID Diastole (2D) 4.3 cm 3.8-5.2 LVIW Diastolic Thickness (2D) 0.8 cm 0.6-0.9 LVID Systole (2D) 2.6 cm 2.2-3.5 LVOT Diameter 2.0 cm LV Mass (2D Cubed) 118.33 g 67.00-162.00 LV Mass Index (2D Cubed) 73 g/m2 43-95 Relative Wall Thickness (2D) 0.36 LV Fractional Shortening/Ejection Fraction 2D/MM LV Fractional Shortening (2D) 39 % 27-45 LV EF (2D Teicholz) 70 % 54-74 LV Diastolic Volume (4C MOD) 80 ml LV EF (4C MOD) 80 % LV Diastolic Volume (2C MOD) 93 ml LV EF (2C MOD) 81 % LV Diastolic Volume (BP MOD) 88 ml 46-106 LV Diastolic Volume Index (BP MOD) 54 ml/m2 29-61 LV Systolic Volume (BP MOD) 18 ml 14-42 LV Systolic Volume Index (BP MOD) 11 ml/m2 8-24 LV EF (BP MOD) 80 % 54-74 LV Diastolic Length (4C) 6.9 cm LV Systolic Length (4C) 5.4 cm LV Stroke Volume (4C MOD) 63 ml Atria Name Value Normal LA Dimensions LA Volume (4C A-L) 41 ml LA Volume (BP A-L) 48 ml RA Dimensions RA Area (4C) 16.1 cm2 <=18.0 Report Signatures
[2024-10-21 01:09] LABS: INR 0.9; Prothrombin Time 12.9 Seconds (11.1-14.7)
[2024-10-21] MEDS: REMDESIVIR 200 MG/NS 250 ML 200 MG/250 ML BAG 250 MG IVPB (01:25)
[2024-10-21] MEDS: IPRATROPIUM 0.5 MG/ALBUTEROL SULFATE 2.5 MG AMPUL.NEB 3 ML INHALATION ×4 (02:05→21:27)
--- NOTE | 2024-10-21 03:08 | ADMGEN ---
This patient, Abigail Martinez, was admitted to IMU Room 214-01. Patient/family oriented to hospital policies and general routines including ID bracelet, bed and alarms, visiting hours, pain management, procedures, bathroom and other care routines, personal items, smoking policy, room service/diet, and visiting hours. Information on how to activate the Rapid Response Team has been discussed. Patient/Family are encouraged to report perceived risks to care and to ask questions if they do not understand what they are told or what they should do.
[2024-10-21 03:19] LABS: Alveolar/Arterial O2 Gradient 40.2 mmHg; Base Excess ABG -2.3 mEq/l (+/-2.0); Carboxyhemoglobin 2.7 % THb (0-2.0); Fractional Inspired Oxygen 24 %; HCO3 ABG 23.8 mEq/l (22.0-26.0); Methemoglobin ABG 0.3 %THb (0-1.5); Oxygen Content ABG 18.5 %vol (16.0-22.0); Oxygen Saturation ABG 94.5 % (95.0-100.0); Oxyhemoglobin 92.7 % THb (90.0-100.0); PCO2 ABG 45.5 mmHg (35.0-45.0); PO2 ABG 76.8 mmHg (80.0-100.0); Reduced Hemoglobin 4.3 %THb (0-5.0); Total Hemoglobin 14.2 g/dL (12.0-18.0); pH ABG 7.336 (7.350-7.450)
[2024-10-21 03:20] LABS: Device BIPAP; Expiratory Pressure 5 cmH2O; Inspiratory Pressure 12 cmH2O; Modified Allen's Test Pass; Site Drawn RIGHT RADIAL
[2024-10-21] MEDS: dexAMETHasone SOD PHOS INJ 10 MG/ML 1 ML VIAL 6 MG IV PUSH (08:16)
[2024-10-21 08:53] LABS: Basophils Percent Auto 0.2 % (0.2-1.2); Hematocrit 42.7 % (37.0-47.0); Hemoglobin 13.6 g/dL (12.0-15.0); Immature Granulocyte Absolute 0.01 K/mm3 (0.00-0.031); Immature Granulocyte Percent A 0.2 % (0-0.5); Immature Platelet Fraction Pct 14.2 % (0.9-11.2); Lymphocytes Absolute Auto 0.32 K/mm3 (0.9-3.2); Lymphocytes Percent Auto 6.8 % (18.3-44.2); Mean Corpuscular HGB Conc 31.9 g/dl (32-36); Mean Corpuscular Hemoglobin 27.5 pg (26-34); Mean Corpuscular Volume 86.4 fl (80-100); Mean Platelet Volume 13.2 fl (7.4-10.4); Monocytes Absolute Auto 0.1 K/mm3 (0.1-0.6); Monocytes Percent Auto 1.1 % (2.6-8.5); Neutrophils Absolute Auto 4.3 K/mm3 (1.3-6.7); Neutrophils Percent Auto 91.7 % (45.5-73.1); Platelet Count Result 132 k/mm3 (150-375); Red Blood Count 4.94 M/mm3 (4.2-5.4); Red Cell Distribution Width 14.7 % (11.5-14.5); White Blood Count 4.7 K/mm3 (4.5-10.0)
[2024-10-21 09:05] LABS: Albumin Level 3.8 g/dL (3.5-5.1); Alkaline Phosphatase 131 U/L (38-126); Anion Gap 12 mmol/L (4-12); Aspartate Amino Transferase 20 U/L (14-36); Bilirubin,Total < 0.1 mg/dL (0.2-1.3); Blood Urea Nitrogen 14 mg/dL (7-17); Calcium 8.8 mg/dL (8.4-10.2); Carbon Dioxide 21 mmol/L (22-30); Chloride 105 mmol/L (98-107); Estimated Glomerular Filt Rate > 60; Glucose 192 mg/dL (65-110); Magnesium 2.3 mg/dL (1.6-2.3); Potassium 4.7 mmol/L (3.4-5.0); Sodium 138 mmol/L (137-145)
[2024-10-21 09:11] LABS: Alanine Aminotransferase 28 U/L (6-35)
[2024-10-21 09:58] LABS: D Dimer 0.37 ug/mL (<0.48)
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
[2024-10-21] MEDS: ENOXAPARIN 40 MG/0.4 ML SYRINGE SUB-Q (11:45)
[2024-10-21] MEDS: AZITHROMYCIN 250 MG TABLET 500 MG PO (11:45)
[2024-10-21] MEDS: hydroCHLOROthiazide 12.5 MG CAPSULE PO (11:45)
[2024-10-21] MEDS: LOSARTAN POTASSIUM 50 MG TABLET PO (11:46)
[2024-10-21] MEDS: FLUTICASONE PROPIONATE 0.05% NA SPR 16 GM BTL (*BKC) 1 SPRAY NASAL (11:47)
[2024-10-21] MEDS: ACETAMINOPHEN 325 MG TABLET 650 MG PO (13:31)
--- NOTE | 2024-10-21 15:39 | PC.NURSE ---
This patient, Abigail Martinez, was transferred to [[id number] ] on 10/21/24 at 1147. Personal belongings sent with patient. Report given to [FERDINAND Cooper @ [id number] ]. Appropriate documentation sent with patient.
[2024-10-21] MEDS: AMOXICILLIN/CLAVULANATE K 875-125 MG TAB 1 TABLET PO ×2 (15:56→20:24)
[2024-10-21] MEDS: AZELASTINE HCL NASAL 0.1% 137 MCG/SPR 30 ML BTL 1 SPRAY NASAL (20:24)
[2024-10-21] MEDS: LORATADINE 10 MG TABLET PO (20:24)
--- NOTE | 2024-10-21 21:27 | PCRCNOTE ---
2000 treatment omitted due to ED workload
[2024-10-22] VITALS (16 sets, daily range): BP systolic 110–142; BP diastolic 33–65; PULSE 60–97; RESP 16–20; TEMP 36.4–36.6; O2SAT 94–98
[2024-10-22] MEDS: IPRATROPIUM 0.5 MG/ALBUTEROL SULFATE 2.5 MG AMPUL.NEB 3 ML INHALATION ×4 (01:51→20:33)
[2024-10-22 05:33] LABS: Basophils Percent Auto 0.3 % (0.2-1.2); Eosinophils Percent Auto 0.1 % (0-4.4); Hematocrit 41.8 % (37.0-47.0); Hemoglobin 13.4 g/dL (12.0-15.0); Immature Granulocyte Absolute 0.02 K/mm3 (0.00-0.031); Immature Granulocyte Percent A 0.3 % (0-0.5); Immature Platelet Fraction Pct 15.3 % (0.9-11.2); Lymphocytes Absolute Auto 1.02 K/mm3 (0.9-3.2); Lymphocytes Percent Auto 14.2 % (18.3-44.2); Mean Corpuscular HGB Conc 32.1 g/dl (32-36); Mean Corpuscular Hemoglobin 27.5 pg (26-34); Mean Corpuscular Volume 85.8 fl (80-100); Mean Platelet Volume 12.8 fl (7.4-10.4); Monocytes Absolute Auto 0.4 K/mm3 (0.1-0.6); Monocytes Percent Auto 6.1 % (2.6-8.5); Neutrophils Absolute Auto 5.7 K/mm3 (1.3-6.7); Platelet Count Result 132 k/mm3 (150-375); Red Blood Count 4.87 M/mm3 (4.2-5.4); Red Cell Distribution Width 14.6 % (11.5-14.5); White Blood Count 7.2 K/mm3 (4.5-10.0)
[2024-10-22 05:45] LABS: Alanine Aminotransferase 17 U/L (6-35); Albumin Level 3.7 g/dL (3.5-5.1); Alkaline Phosphatase 122 U/L (38-126); Anion Gap 5 mmol/L (4-12); Aspartate Amino Transferase 17 U/L (14-36); Bilirubin,Total 0.2 mg/dL (0.2-1.3); Blood Urea Nitrogen 14 mg/dL (7-17); Calcium 9.2 mg/dL (8.4-10.2); Carbon Dioxide 29 mmol/L (22-30); Chloride 104 mmol/L (98-107); Estimated Glomerular Filt Rate > 60; Glucose 112 mg/dL (65-110); Sodium 138 mmol/L (137-145)
[2024-10-22] MEDS: FLUTICASONE/UMECLIDIN/VILANTER 100-62.5-25 MCG ELLIPTA 1 PUFF INHALATION (09:02)
[2024-10-22] MEDS: AZITHROMYCIN 250 MG TABLET 500 MG PO (09:11)
[2024-10-22] MEDS: LOSARTAN POTASSIUM 50 MG TABLET PO (09:12)
[2024-10-22] MEDS: hydroCHLOROthiazide 12.5 MG CAPSULE PO (09:12)
[2024-10-22] MEDS: ENOXAPARIN 40 MG/0.4 ML SYRINGE SUB-Q (09:12)
[2024-10-22] MEDS: AMOXICILLIN/CLAVULANATE K 875-125 MG TAB 1 TABLET PO ×2 (09:12→21:09)
[2024-10-22] MEDS: predniSONE 20 MG TABLET 40 MG PO (09:12)
--- NOTE | 2024-10-22 10:59 | P.PNIM_ITS ---
Progress Note: A&P Assessment and Plan (1) Acute on chronic respiratory failure with hypoxia and hypercapnia: Code(s): J96.21 - Acute and chronic respiratory failure with hypoxia; J96.22 - Acute and chronic respiratory failure with hypercapnia Status: Acute Assessment and Plan: patient typically wears 1.5-2 L of supplemental oxygen as needed and with activity * VBG: pH 7.26/ pCO2 of 75.2 /PO2 27.0 / HC03 33.3 * Bipap initiated 06/29 24% * pulmonology consulted follows outpatient * Bronchodilators. * Chest x-ray no evidence of pneumonia * incentive spirometry while awake. * steroids initiated dexamethasone secondary treatment for COVID * treatment for COVID remdesivir and dexamethasone given in the ED stopped since no evidence of COVID PNA * Add Guaifenesin * azithromycin 500 x 1 day * Prednisone 40mg PO daily. * supplemental oxygen therapy to maintain oxygen 92% wean as tolerated wears 1.5 to 2L PRN at home will likely need a home O2 evaluation for increase oxygen requirements * Smoking cessation counseling done * Follow-up with twist tester as an outpatient (2) COVID: Code(s): U07.1 - COVID-19 Status: Acute Assessment and Plan: * See Above * antipyretics * antiemetics * remdesivir given in ED stopped * Prednisone 40mg daily per pulmonology * incentive spirometer (3) COPD (chronic obstructive pulmonary disease): Qualifiers: COPD type: emphysema Emphysema type: unspecified Qualified Code(s): J43.9 - Emphysema, unspecified Code(s): J44.9 - Chronic obstructive pulmonary disease, unspecified Status: Acute Assessment and Plan: See Above # 1 (4) HTN (hypertension): Code(s): I10 - Essential (primary) hypertension Status: Acute Assessment and Plan: * Blood pressure 142/54. * Continue Losartan and Hydrochlorothiazide. * BP per unit protocol (5) History of tobacco use: Code(s): Z87.891 - Personal history of nicotine dependence Status: Acute Assessment and Plan: * encourage Smoking cessation * Nicotine patch PRN (6) Vitamin D deficiency, unspecified: Code(s): E55.9 - Vitamin D deficiency, unspecified Status: Acute Assessment and Plan: * resume vitamin-D (7) Chronic ethmoidal sinusitis: Code(s): J32.2 - Chronic ethmoidal sinusitis Status: Acute Assessment and Plan: Patient reports surgical repair x 2, reports it is more severe then usual * Augmentin p.o. * Resume nasal sprays * Continue Claritin * Patient will need follow-up with ENT outpatient for further evaluation when COVID infection cleared Plan Code status: Full code per patient DVT prophylaxis: Lovenox Stress ulcer prophylaxis: NA PT/OT notes: ambulatory Disposition: patient was admitted to IMU for further evaluation and treatment of acute respiratory failure with hypoxia and hypercapnia secondary to COVID 19 infection and COPD exacerbation. Patient placed on BiPAP weaned at this time back to 2 L nasal cannula pulmonology consulted for any further recommendations. Patient is ambulatory on own plan to return home at discharge. Subjective Date/time seen: 10/22/24 10:59 Interval history: Patient reports that she is feeling better. Patient reports head congestion and a cough that is mostly dry. Patient denies chest pain, shortness of breath at rest, headache, dizziness, nausea, or vomiting. Patient teary about daughter having abdominal surgery at [place] on Wednesday. Review of Systems Review of Systems: All systems reviewed & are unremarkable except as noted in HPI and below Exam Const: General: comfortable and no acute distress Resp: Effort & Inspection: normal respiratory effort Auscultation: wheezes expiratory wheezes (left side faint) and diminished lung sounds Cardio: Rate: regular rate Rhythm: regular rhythm GI: GI Palp: Yes Soft to palpation Auscultation: normal bowel sounds Neuro: Speech: normal speech Extrem: General: no pedal edema Psych: Mental Status: mental status grossly normal Affect: normal affect Objective Data Vital Signs Vital Signs: Vital Signs - 24 hr 10/21/24 11:55 10/21/24 12:00 10/21/24 12:00 Temperature 97.8 F Pulse Rate 96 96 80 Respiratory Rate 20 20 Blood Pressure 131/42 L Pulse Oximetry 97 97 Oxygen Delivery Nasal Cannula Oxygen Flow Rate 2 Fraction of Inspired Oxygen 10/21/24 14:37 10/21/24 14:47 10/21/24 20:00 Temperature Pulse Rate 80 88 Respiratory Rate 20 20 Blood Pressure Pulse Oximetry 96 Oxygen Delivery Nasal Cannula Oxygen Flow Rate 2 Fraction of Inspired Oxygen 10/21/24 21:07 10/22/24 01:50 10/22/24 02:07 Temperature 98 F Pulse Rate 78 82 82 Respiratory Rate 20 16 16 Blood Pressure 106/79 Pulse Oximetry 96 Oxygen Delivery Oxygen Flow Rate Fraction of Inspired Oxygen 10/22/24 05:41 10/22/24 08:10 10/22/24 08:10 Temperature 97.8 F Pulse Rate 74 76 Respiratory Rate 18 20 Blood Pressure 110/65 Pulse Oximetry 98 96 Oxygen Delivery Nasal Cannula Oxygen Flow Rate 2 Fraction of Inspired Oxygen 28 10/22/24 08:20 10/22/24 09:02 10/22/24 09:09 Temperature Pulse Rate 60 68 77 Respiratory Rate 20 20 16 Blood Pressure 142/54 H Pulse Oximetry 94 Oxygen Delivery Oxygen Flow Rate Fraction of Inspired Oxygen 10/22/24 09:10 Temperature Pulse Rate Respiratory Rate Blood Pressure Pulse Oximetry 94 Oxygen Delivery Nasal Cannula Oxygen Flow Rate 2 Fraction of Inspired Oxygen Intake/Output Intake/Output: Intake & Output 10/19/24 10/20/24 10/21/24 10/22/24 23:59 23:59 23:59 23:59 Intake Total 1050 1450 240 Output Total 1075 Balance 1050 375 240 Meds/Results Medications: Active Medications Generic Name Dose Route Start Last Admin Trade Name Freq PRN Reason Stop Dose Admin Acetaminophen 650 mg 10/21/24 08:20 10/21/24 13:31 Acetaminophen 325 Mg Tablet PO 650 mg Q4H PRN Administration Mild Pain (1-3) or Fever Hydrocodone Bitart/Acetaminophen 1 tab 10/21/24 08:20 Hydrocodone/Acetaminophen (*Crx) 5-325 Mg Tablet PO Q4H PRN Moderate Pain (4-6) Albuterol 0 puff 10/21/24 08:20 Albuterol Sulfate (*Sp) Aerosol 1 Puff INHALATION Q4-6H PRN SOB/WHEEZING Albuterol/Ipratropium 3 ml 10/21/24 02:00 10/22/24 08:10 Ipratropium 0.5 Mg/Albuterol Sulfate 2.5 Mg Ampul.Neb 3 Ml INHALATION 3 ml Q6HRT ARNAV Administration Amoxicillin/Clavulanate Potassium 1 tablet 10/21/24 21:00 10/22/24 09:12 Amoxicillin/Clavulanate K 875-125 Mg Tab PO 1 tablet Q12HR ARNAV Administration Azelastine HCl 1 spray 10/21/24 21:00 10/21/24 20:24 Azelastine Hcl Nasal 0.1% 137 Mcg/Spr 30 Ml Btl NASAL 1 spray HS ARNAV Administration Azithromycin 500 mg 10/21/24 09:00 10/22/24 09:11 Azithromycin 250 Mg Tablet PO 500 mg DAILY ARNAV Administration Enoxaparin Sodium 40 mg 10/21/24 09:00 10/22/24 09:12 Enoxaparin 40 Mg/0.4 Ml Syringe SUB-Q 40 mg DAILY ARNAV Administration Ergocalciferol 50,000 units 10/24/24 09:00 Ergocalciferol 50,000 Units Capsule PO Tu@0900 ARNAV Fluticasone Propionate 1 spray 10/21/24 09:00 10/22/24 09:12 Fluticasone Propionate 0.05% Na Spr 16 Gm Btl (*Bkc) NASAL Not Given DAILY ARNAV Fluticasone/Umeclidinium/Vilanterol 1 puff 10/22/24 08:00 10/22/24 09:02 Fluticasone/Umeclidin/Vilanter 100-62.5-25 Mcg Ellipta INHALATION 1 puff DAILYRT ARNAV Administration Hydrochlorothiazide 12.5 mg 10/21/24 09:00 10/22/24 09:12 Hydrochlorothiazide 12.5 Mg Capsule PO 12.5 mg DAILY ARNAV Administration Loratadine 10 mg 10/21/24 21:00 10/21/24 20:24 Loratadine 10 Mg Tablet PO 10 mg QHS ARNAV Administration Losartan Potassium 50 mg 10/21/24 09:00 10/22/24 09:12 Losartan Potassium 50 Mg Tablet PO 11/20/24 08:59 50 mg DAILY ARNAV Administration Ondansetron HCl 4 mg 10/21/24 08:20 Ondansetron Inj 4 Mg/2 Ml Vial IV PUSH Q6H PRN Nausea And Vomiting Perflutren Lipid Microsphere 0 ml 10/21/24 08:25 Perflutren Lipid Microspheres 1.5 Ml Vial Diluted To 10 Ml Total Volume IV PUSH 10/24/24 08:27 ONCE PRN adequate visualization Protocol Prednisone 40 mg 10/22/24 08:00 10/22/24 09:12 Prednisone 20 Mg Tablet PO 40 mg DAILY@0800 ARNAV Administration Radiology Results: ITS Impressions Chest X-Ray 10/20/24 22:30 IMPRESSION: No evidence of pneumonia, pneumothorax or effusion. Prominent markings with minimal interstitial changes. Underlying fibrotic changes are possible. Labs Labs: Laboratory Results - last 24 hr 10/22/24 05:16 WBC 7.2 RBC 4.87 Hgb 13.4 Hct 41.8 MCV 85.8 MCH 27.5 MCHC 32.1 RDW 14.6 H Plt Count 132 L MPV 12.8 H Immature Gran % (Auto) 0.3 Neut % (Auto) 79.0 H Lymph % (Auto) 14.2 L Evans % (Auto) 6.1 Eos % (Auto) 0.1 Baso % (Auto) 0.3 Lymph # (Auto) 1.02 Evans # (Auto) 0.4 Eos # (Auto) 0.0 Baso # (Auto) 0.0 Abs Immat Gran (auto) 0.02 Absolute Neuts (auto) 5.7 Absolute Nucleated RBC 0.000 Nucleated RBC % 0.0 % Immature Plt Fraction 15.3 H Sodium 138 Potassium 4.0 Chloride 104 Carbon Dioxide 29 Anion Gap 5 BUN 14 Creatinine 0.65 L Estim Creat Clear Calc Not Reportable Estimated GFR > 60 Glucose 112 H Calcium 9.2 Total Bilirubin 0.2 AST 17 ALT 17 Alkaline Phosphatase 122 Total Protein 6.0 L Albumin 3.7 Quality VTE Prophylaxis VTE prophylaxis: mechanical ordered and pharmacologic ordered
--- NOTE | 2024-10-22 12:02 | PM.PNPUL ---
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 She was treated with BiPAP support for hypercapnia and also treatment for a COPD exacerbation. She has not received treatment for COVID-19 infection as a chest x-ray showed no lung infiltrates. Her respiratory status has remained stable over the last 24 hours. On physical exam she has no wheezing. Plan: From respiratory standpoint the patient can be discharged home. She will continue with the home oxygen using same flow, same maintenance bronchodilators, prednisone 40 mg p.o. daily for 4 days, and Augmentin current dose for 5-6 days. Patient was advised to call to make an appointment to see her natural history collections curator in approximately 3-4 weeks. I will sign off at this point, please call with any questions Subjective Date/time seen: 10/22/24 12:02 Interval history: Patient doing better. No new respiratory symptoms remains on supplemental oxygen. Eager to go home Review of Systems Review of Systems: All systems reviewed & are unremarkable except as noted in HPI and below Exam Narrative: GENERAL APPEARANCE: Well developed, well nourished, alert and cooperative, and appears to be in no acute distress while on supplemental oxygen SKIN: Inspection of the skin reveals no rashes, ulcerations or petechiae. HEENT: Sclerae anicteric and conjunctivae pink and moist. Extraocular movements were intact and pupils were equal, round. NECK: Supple. There was no thyroid enlargement, and no tenderness, or masses were felt. CHEST: Normal AP diameter and normal contour without any kyphoscoliosis. LUNGS: Distant breath sounds no wheezing CARDIAC: There was a regular rate and rhythm without any murmurs, gallops, rubs. ABDOMEN: Soft and nontender with normal bowel sounds. LYMPH NODES: No lymphadenopathy was appreciated in the neck. EXTREMITIES: No cyanosis, clubbing or edema. NEUROLOGIC: Alert and oriented x 3. Normal affect. Objective Data Vital Signs Vital Signs: Vital Signs - 24 hr 10/21/24 14:37 10/21/24 14:47 10/21/24 20:00 Temperature Pulse Rate 80 88 Respiratory Rate 20 20 Blood Pressure Pulse Oximetry 96 Oxygen Delivery Nasal Cannula Oxygen Flow Rate 2 Fraction of Inspired Oxygen 10/21/24 21:07 10/22/24 01:50 10/22/24 02:07 Temperature 36.6 C Pulse Rate 78 82 82 Respiratory Rate 20 16 16 Blood Pressure 106/79 Pulse Oximetry 96 Oxygen Delivery Oxygen Flow Rate Fraction of Inspired Oxygen 10/22/24 05:41 10/22/24 08:10 10/22/24 08:10 Temperature 36.6 C Pulse Rate 74 76 Respiratory Rate 18 20 Blood Pressure 110/65 Pulse Oximetry 98 96 Oxygen Delivery Nasal Cannula Oxygen Flow Rate 2 Fraction of Inspired Oxygen 28 10/22/24 08:20 10/22/24 09:02 10/22/24 09:09 Temperature Pulse Rate 60 68 77 Respiratory Rate 20 20 16 Blood Pressure 142/54 H Pulse Oximetry 94 Oxygen Delivery Oxygen Flow Rate Fraction of Inspired Oxygen 10/22/24 09:10 Temperature Pulse Rate Respiratory Rate Blood Pressure Pulse Oximetry 94 Oxygen Delivery Nasal Cannula Oxygen Flow Rate 2 Fraction of Inspired Oxygen Intake/Output Intake/Output: Intake & Output 10/19/24 10/20/24 10/21/24 10/22/24 23:59 23:59 23:59 23:59 Intake Total 1050 1450 240 Output Total 1075 Balance 1050 375 240 Meds/Results Medications: Active Medications Generic Name Dose Route Start Last Admin Trade Name Freq PRN Reason Stop Dose Admin Acetaminophen 650 mg 10/21/24 08:20 10/21/24 13:31 Acetaminophen 325 Mg Tablet PO 650 mg Q4H PRN Administration Mild Pain (1-3) or Fever Hydrocodone Bitart/Acetaminophen 1 tab 10/21/24 08:20 Hydrocodone/Acetaminophen (*Crx) 5-325 Mg Tablet PO Q4H PRN Moderate Pain (4-6) Albuterol 0 puff 10/21/24 08:20 Albuterol Sulfate (*Sp) Aerosol 1 Puff INHALATION Q4-6H PRN SOB/WHEEZING Albuterol/Ipratropium 3 ml 10/21/24 02:00 10/22/24 08:10 Ipratropium 0.5 Mg/Albuterol Sulfate 2.5 Mg Ampul.Neb 3 Ml INHALATION 3 ml Q6HRT ARNAV Administration Amoxicillin/Clavulanate Potassium 1 tablet 10/21/24 21:00 10/22/24 09:12 Amoxicillin/Clavulanate K 875-125 Mg Tab PO 1 tablet Q12HR ARNAV Administration Azelastine HCl 1 spray 10/21/24 21:00 10/21/24 20:24 Azelastine Hcl Nasal 0.1% 137 Mcg/Spr 30 Ml Btl NASAL 1 spray HS ARNAV Administration Azithromycin 500 mg 10/21/24 09:00 10/22/24 09:11 Azithromycin 250 Mg Tablet PO 500 mg DAILY ARNAV Administration Enoxaparin Sodium 40 mg 10/21/24 09:00 10/22/24 09:12 Enoxaparin 40 Mg/0.4 Ml Syringe SUB-Q 40 mg DAILY ARNAV Administration Ergocalciferol 50,000 units 10/24/24 09:00 Ergocalciferol 50,000 Units Capsule PO Tu@0900 ARNAV Fluticasone Propionate 1 spray 10/21/24 09:00 10/22/24 09:12 Fluticasone Propionate 0.05% Na Spr 16 Gm Btl (*Bkc) NASAL Not Given DAILY ARNAV Fluticasone/Umeclidinium/Vilanterol 1 puff 10/22/24 08:00 10/22/24 09:02 Fluticasone/Umeclidin/Vilanter 100-62.5-25 Mcg Ellipta INHALATION 1 puff DAILYRT ARNAV Administration Guaifenesin 600 mg 10/22/24 11:15 Guaifenesin 12 Hr 600 Mg Tabcr PO 10/29/24 11:14 Q12HR ARNAV Hydrochlorothiazide 12.5 mg 10/21/24 09:00 10/22/24 09:12 Hydrochlorothiazide 12.5 Mg Capsule PO 12.5 mg DAILY ARNAV Administration Loratadine 10 mg 10/21/24 21:00 10/21/24 20:24 Loratadine 10 Mg Tablet PO 10 mg QHS ARNAV Administration Losartan Potassium 50 mg 10/21/24 09:00 10/22/24 09:12 Losartan Potassium 50 Mg Tablet PO 11/20/24 08:59 50 mg DAILY ARNAV Administration Ondansetron HCl 4 mg 10/21/24 08:20 Ondansetron Inj 4 Mg/2 Ml Vial IV PUSH Q6H PRN Nausea And Vomiting Perflutren Lipid Microsphere 0 ml 10/21/24 08:25 Perflutren Lipid Microspheres 1.5 Ml Vial Diluted To 10 Ml Total Volume IV PUSH 10/24/24 08:27 ONCE PRN adequate visualization Protocol Prednisone 40 mg 10/22/24 08:00 10/22/24 09:12 Prednisone 20 Mg Tablet PO 40 mg DAILY@0800 ARNAV Administration Radiology Results: ITS Impressions Chest X-Ray 10/20/24 22:30 IMPRESSION: No evidence of pneumonia, pneumothorax or effusion. Prominent markings with minimal interstitial changes. Underlying fibrotic changes are possible. Labs Labs: Laboratory Results - last 24 hr 10/22/24 05:16 WBC 7.2 RBC 4.87 Hgb 13.4 Hct 41.8 MCV 85.8 MCH 27.5 MCHC 32.1 RDW 14.6 H Plt Count 132 L MPV 12.8 H Immature Gran % (Auto) 0.3 Neut % (Auto) 79.0 H Lymph % (Auto) 14.2 L [place] % (Auto) 6.1 Eos % (Auto) 0.1 Baso % (Auto) 0.3 Lymph # (Auto) 1.02 [place] # (Auto) 0.4 Eos # (Auto) 0.0 Baso # (Auto) 0.0 Abs Immat Gran (auto) 0.02 Absolute Neuts (auto) 5.7 Absolute Nucleated RBC 0.000 Nucleated RBC % 0.0 % Immature Plt Fraction 15.3 H Sodium 138 Potassium 4.0 Chloride 104 Carbon Dioxide 29 Anion Gap 5 BUN 14 Creatinine 0.65 L Estim Creat Clear Calc Not Reportable Estimated GFR > 60 Glucose 112 H Calcium 9.2 Total Bilirubin 0.2 AST 17 ALT 17 Alkaline Phosphatase 122 Total Protein 6.0 L Albumin 3.7
[2024-10-22] MEDS: guaiFENesin 12 HR 600 MG TABCR PO ×2 (12:42→21:09)
--- NOTE | 2024-10-22 18:22 | PC.NURSE ---
PAtient has no IV access at this time, patient refusing replacement. Provider Christa Flores [employer] MA[employer] notified ok to keep out IV at this time.
[2024-10-22] MEDS: LORATADINE 10 MG TABLET PO (21:09)
[2024-10-22] MEDS: AZELASTINE HCL NASAL 0.1% 137 MCG/SPR 30 ML BTL 1 SPRAY NASAL (21:09)
[2024-10-23] MEDS: IPRATROPIUM 0.5 MG/ALBUTEROL SULFATE 2.5 MG AMPUL.NEB 3 ML INHALATION ×2 (01:43→08:33)
[2024-10-23 04:11] VITALS: BP 114/64; PULSE 64; RESP 16; TEMP 36.7; O2SAT 99
[2024-10-23 05:41] LABS: Basophils Percent Auto 0.4 % (0.2-1.2); Eosinophils Percent Auto 0.4 % (0-4.4); Hematocrit 42.5 % (37.0-47.0); Hemoglobin 13.5 g/dL (12.0-15.0); Immature Granulocyte Absolute 0.02 K/mm3 (0.00-0.031); Immature Granulocyte Percent A 0.3 % (0-0.5); Immature Platelet Fraction Pct 15.5 % (0.9-11.2); Lymphocytes Percent Auto 24.1 % (18.3-44.2); Mean Corpuscular HGB Conc 31.8 g/dl (32-36); Mean Corpuscular Hemoglobin 27.2 pg (26-34); Mean Corpuscular Volume 85.5 fl (80-100); Mean Platelet Volume 13.6 fl (7.4-10.4); Monocytes Absolute Auto 0.5 K/mm3 (0.1-0.6); Monocytes Percent Auto 6.8 % (2.6-8.5); Neutrophils Absolute Auto 5.1 K/mm3 (1.3-6.7); Platelet Count Result 153 k/mm3 (150-375); Red Blood Count 4.97 M/mm3 (4.2-5.4); Red Cell Distribution Width 14.7 % (11.5-14.5); White Blood Count 7.5 K/mm3 (4.5-10.0)
[2024-10-23 05:56] LABS: Alanine Aminotransferase 17 U/L (6-35); Albumin Level 3.6 g/dL (3.5-5.1); Alkaline Phosphatase 117 U/L (38-126); Anion Gap 5 mmol/L (4-12); Aspartate Amino Transferase 18 U/L (14-36); Bilirubin,Total 0.3 mg/dL (0.2-1.3); Blood Urea Nitrogen 18 mg/dL (7-17); Calcium 9.4 mg/dL (8.4-10.2); Carbon Dioxide 30 mmol/L (22-30); Chloride 101 mmol/L (98-107); Estimated Glomerular Filt Rate > 60; Glucose 91 mg/dL (65-110); Potassium 3.9 mmol/L (3.4-5.0); Sodium 136 mmol/L (137-145)
[2024-10-23] MEDS: FLUTICASONE/UMECLIDIN/VILANTER 100-62.5-25 MCG ELLIPTA 1 PUFF INHALATION (08:33)
[2024-10-23 08:36] VITALS: PULSE 82; RESP 20; O2SAT 99
[2024-10-23 08:54] VITALS: PULSE 84; RESP 20
[2024-10-23] MEDS: hydroCHLOROthiazide 12.5 MG CAPSULE PO (08:59)
[2024-10-23] MEDS: FLUTICASONE PROPIONATE 0.05% NA SPR 16 GM BTL (*BKC) 1 SPRAY NASAL (08:59)
[2024-10-23] MEDS: AMOXICILLIN/CLAVULANATE K 875-125 MG TAB 1 TABLET PO (08:59)
[2024-10-23] MEDS: AZITHROMYCIN 250 MG TABLET 500 MG PO (08:59)
[2024-10-23] MEDS: predniSONE 20 MG TABLET 40 MG PO (08:59)
[2024-10-23] MEDS: guaiFENesin 12 HR 600 MG TABCR PO (08:59)
[2024-10-23] MEDS: LOSARTAN POTASSIUM 50 MG TABLET PO (08:59)
[2024-10-23 09:00] VITALS: O2SAT 99
[2024-10-23] MEDS: ENOXAPARIN 40 MG/0.4 ML SYRINGE SUB-Q (09:07)
--- NOTE | 2024-10-23 09:48 | PM.DS ---
DS: Admitting Diagnosis Discharge Date 10/23/2024 Admitting Diagnosis Shortness of breath. DS: Discharge Diagnosis Discharge Diagnosis (1) Acute on chronic respiratory failure with hypoxia and hypercapnia: Code(s): J96.21 - Acute and chronic respiratory failure with hypoxia; J96.22 - Acute and chronic respiratory failure with hypercapnia Status: Acute (2) COPD (chronic obstructive pulmonary disease): Qualifiers: COPD type: emphysema Emphysema type: unspecified Qualified Code(s): J43.9 - Emphysema, unspecified Code(s): J44.9 - Chronic obstructive pulmonary disease, unspecified Status: Acute (3) COVID: Code(s): U07.1 - COVID-19 Status: Acute (4) HTN (hypertension): Code(s): I10 - Essential (primary) hypertension Status: Acute (5) Chronic ethmoidal sinusitis: Code(s): J32.2 - Chronic ethmoidal sinusitis Status: Acute DS: Summary Hospital Course Hospital Course: Initial findings in the emergency department showed patient be at 89% pulse ox with a ABG showing pH 7.26/ pCO2 of 75.2 /PO2 27.0 / HC03 33.3 with a respiratory rate of 29, CT chest showing no evidence of pneumonia with some prominent marking with minimal interstitial changes. D-dimer was negative no need for CTA however patient did test positive for COVID-19. Patient does follow with pulmonology outpatient last reported FEV1 of 58%. Patient was followed by Catering Sales Manager during visit. Patient improved with steroids, antibiotics, and nebulizer treatments. Status at Discharge Overall status at discharge: patient is progressing back to baseline Time Spent with Patient Time attestation: Total time spent providing and/or coordinating discharge services: Time spent: Greater than 30 minutes Exam Const: General: comfortable and no acute distress Resp: Effort & Inspection: normal respiratory effort Auscultation: diminished lung sounds Cardio: Rate: regular rate Rhythm: regular rhythm GI: GI Palp: Yes Soft to palpation Auscultation: normal bowel sounds Extrem: General: no pedal edema Psych: Mental Status: mental status grossly normal Affect: normal affect DS: Data Data Completed and Pending Labs on day of discharge: Labs from last 24 hours 10/23/24 05:18 WBC 7.5 RBC 4.97 Hgb 13.5 Hct 42.5 MCV 85.5 MCH 27.2 MCHC 31.8 L RDW 14.7 H Plt Count 153 MPV 13.6 H Immature Gran % (Auto) 0.3 Neut % (Auto) 68.0 Lymph % (Auto) 24.1 [place] % (Auto) 6.8 Eos % (Auto) 0.4 Baso % (Auto) 0.4 Lymph # (Auto) 1.80 [place] # (Auto) 0.5 Eos # (Auto) 0.0 Baso # (Auto) 0.0 Abs Immat Gran (auto) 0.02 Absolute Neuts (auto) 5.1 Absolute Nucleated RBC 0.000 Nucleated RBC % 0.0 % Immature Plt Fraction 15.5 H PT 14.0 INR 1.0 Sodium 136 L Potassium 3.9 Chloride 101 Carbon Dioxide 30 Anion Gap 5 BUN 18 H Creatinine 0.73 Estim Creat Clear Calc Not Reportable Estimated GFR > 60 Glucose 91 Calcium 9.4 Total Bilirubin 0.3 Direct Bilirubin 0.0 AST 18 ALT 17 Alkaline Phosphatase 117 Total Protein 6.0 L Albumin 3.6 Discharge Plan Discharge Attending physician on discharge: Jose Mchugh Consulting providers: Bianca Perry; Arnie Ni Discharging Clinician: Rossana Baxter Anticipated Discharge Date/Time: 10/23/24 10:30 Patient Disposition: Home, Self-Care Activity: may shower and as tolerated Diet: heart healthy Discharge Instructions: Wear a mask when around other individuals through October 29. Call provider if you develop worsening shortness of breath not improved with inhalers, oxygen, and rest or temp >101. Take all doses of antibiotics. Set up follow up appointment with your Catering Sales Manager. Avoid sick contacts. Thank you for entrusting [facility] with your healthcare! Patient Instructions: Antibiotic Form, Pain Management (DC), Using Oxygen at Home (DC), COPD (Chronic Obstructive Pulmonary Disease) (DC), COVID-19 (Coronavirus Disease 2019) (DC), COVID-19 and Chronic Health Conditions (GEN), How to Recover from COVID-19 at Home (ED) Patient Language: Scottish Stand Alone Forms: General Discharge Information Follow-up/Referrals: Marty Altamirano MD [Primary Care Provider] - 1 Week Discharge Medications: New prednisone 20 mg Tablet 40 mg PO DAILY@0800 Qty: 8 0RF loratadine 10 mg Tablet 10 mg PO QHS Qty: 30 0RF guaifenesin [Mucus Relief ER] 600 mg Tablet Extended Release 12hr 600 mg PO Q12HR Qty: 14 0RF amoxicillin-pot clavulanate 875-125 mg tablet 1 tablet PO Q12H Qty: 11 0RF Continued azithromycin 250 mg tablet 250 mg PO QMWF 30 Days Qty: 13 5RF cholecalciferol (vitamin D3) 1,250 mcg (50,000 unit) capsule 1,250 mcg PO WEEKLY Qty: 14 3RF Patient Comments: Tuesdays furosemide 40 mg tablet 40 mg PO DAILY PRN (Reason: edema) Qty: 10 2RF azelastine 137 mcg (0.1 %) spray,non-aerosol 1 spray intranasal HS Rx Instructions: administer into each nostril fluticasone propionate 50 mcg/actuation spray,suspension 1 spray intranasal DAILY Rx Instructions: administer into each nostril Trelegy Ellipta 100-62.5-25 mcg blister with device See Rx Instructions .ROUTE .COMPLEX Qty: 60 11RF Dose Instruction: Inhale 1 puff by mouth once daily Rx Instructions: Inhale 1 puff by mouth once daily losartan-hydrochlorothiazide 50-12.5 mg tablet 1 tablet PO DAILY Qty: 90 1RF albuterol sulfate 2.5 mg /3 mL (0.083 %) solution for nebulization See Rx Instructions .ROUTE .COMPLEX Qty: 180 5RF Dose Instruction: USE 1 VIAL IN NEBULIZER EVERY 4 TO 6 HOURS NEEDED FOR SHORTNESS OF BREATH AND FOR WHEEZING Rx Instructions: USE 1 VIAL IN NEBULIZER EVERY 4 TO 6 HOURS NEEDED FOR SHORTNESS OF BREATH AND FOR WHEEZING albuterol sulfate 90 mcg/actuation HFA aerosol inhaler See Rx Instructions .ROUTE .COMPLEX Qty: 9 3RF Dose Instruction: INHALE 1 TO 2 PUFFS BY MOUTH EVERY 4 TO 6 HOURS NEEDED FOR SHORTNESS OF BREATH FOR WHEEZING Rx Instructions: INHALE 1 TO 2 PUFFS BY MOUTH EVERY 4 TO 6 HOURS NEEDED FOR SHORTNESS OF BREATH FOR WHEEZING temazepam 7.5 mg capsule 7.5 mg PO QHS PRN (Reason: sleep) Qty: 30 0RF Date of admission: 10/21/24 00:26 Primary Care Provider: Marty Altamirano Admitting Provider: Beba Tierney Attending physician on admission: Beba Tierney Condition: Improved Hospitalist MIPS Heart Failure (Exclusion) Patient has history of Heart Transplant or Left Ventricular Assistive Device?: No IF YES, STOP HERE Heart Failure (Qualifier) Patient has current or prior documentation of LVEF less than or equal to 40%, or mod/servere depressed LVSF?: No IF NO, STOP HERE
== END 2024-10-23 11:30 | disposition home or self-care (01) | DRG 177 ==
LOC: ANHED 23:14 → ANHIMU 10-21 03:08 → ANH2MED 10-22 21:18 → ANHIMU 10-25 15:16
PROVIDERS: Nurse Practitioner Family; Admitting Provider Internal Medicine; Emergency Provider Emergency Medicine; PCP Family Medicine; Visit Provider Nurse Practitioner Family
DX: U07.1 COVID-19 (principal); J96.21 Acute and chronic respiratory failure with hypoxia; J96.22 Acute and chronic respiratory failure with hypercapnia; J44.1 Chronic obstructive pulmonary disease with (acute) exacerbation; I50.32 Chronic diastolic (congestive) heart failure; F17.210 Nicotine dependence, cigarettes, uncomplicated; Z99.81 Dependence on supplemental oxygen; J32.2 Chronic ethmoidal sinusitis; E55.9 Vitamin D deficiency, unspecified; I11.0 Hypertensive heart disease with heart failure; G47.00 Insomnia, unspecified; K58.9 Irritable bowel syndrome, unspecified
CPT/HCPCS: 36415; 36600; 71045; 80053; 82248; 82375; 82803; 82805; 83050; 83735; 85018; 85025; 85055; 85380; 85610; 87045; 87427; 87449; 87637; 93005; 93306; 94002; 94640; 96361; 96365; 96375; 96376; 99285; A9270; J0248; J1100; J1650; J3475; J7030; J7512

== ENCOUNTER 2025-01-18 13:08 | Emergency (ER) | payer MEDICARE, SELFPAY ==
[2025-01-18] VITALS (11 sets, daily range): BP systolic 115–149; BP diastolic 42–69; PULSE 80–103; RESP 18–25; TEMP 36.2; O2SAT 92–97
--- NOTE | ~2025-01-18 | XR_ITS ---
XR chest 1V portable Ordering provider: Violeta Osborne MD History: 79 years Female with . SOB . Comparison: October 20, 2024 FINDINGS: MEDIASTINUM: The cardiac silhouette is not enlarged. LUNGS: No effusions or pneumothorax. Bilateral opacification with prominent markings in the lower lobes. OTHER: No free air under the diaphragm. IMPRESSION: Bilateral basal atelectasis versus pneumonia. Reviewed, dictated and finalized at location A.
--- NOTE | 2025-01-18 14:38 | ECG_ITS ---
Test Date: 2025-01-18 14:48:[address] Rate: 87 P: 63 [place]: 142 QRS: 93 QRSD: 89 T: 58 QT: 343 QTc: 414 Interpretive Statements SINUS RHYTHM RIGHT AXIS DEVIATION BASELINE ARTIFACT- III, AVL, V3, V5 BORDERLINE ECG Compared to ECG 10/20/2024 22:15:28 No significant changes Electronically Signed On 01-18-2025 15:32:35 CDT by Alfredo Chapa D.O.
[2025-01-18 14:57] LABS: Basophils Percent Auto 0.6 % (0.2-1.2); Eosinophils Absolute Auto 0.2 K/mm3 (0-0.3); Eosinophils Percent Auto 2.9 % (0-4.4); Hemoglobin 13.8 g/dL (12.0-15.0); Immature Granulocyte Absolute 0.02 K/mm3 (0.00-0.031); Immature Granulocyte Percent A 0.3 % (0-0.5); Immature Platelet Fraction Pct 17.6 % (0.9-11.2); Lymphocytes Absolute Auto 1.24 K/mm3 (0.9-3.2); Lymphocytes Percent Auto 19.1 % (18.3-44.2); Mean Corpuscular HGB Conc 30.7 g/dl (32-36); Mean Corpuscular Hemoglobin 27.5 pg (26-34); Mean Corpuscular Volume 89.6 fl (80-100); Mean Platelet Volume 13.6 fl (7.4-10.4); Monocytes Absolute Auto 0.4 K/mm3 (0.1-0.6); Monocytes Percent Auto 6.5 % (2.6-8.5); Neutrophils Absolute Auto 4.6 K/mm3 (1.3-6.7); Neutrophils Percent Auto 70.6 % (45.5-73.1); Platelet Count Result 165 k/mm3 (150-375); Red Blood Count 5.02 M/mm3 (4.2-5.4); Red Cell Distribution Width 14.7 % (11.5-14.5); White Blood Count 6.5 K/mm3 (4.5-10.0)
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
[2025-01-18 15:20] LABS: INR 0.9; Prothrombin Time 12.3 Seconds (11.1-14.7)
[2025-01-18 15:26] LABS: NT Pro B Type Natriuretic Pept 68 pg/mL (19.9-100); Troponin I < 0.012 ng/mL (0.000-0.034)
[2025-01-18 15:28] LABS: Alveolar/Arterial O2 Gradient 37.4 mmHg; Base Excess ABG -2.2 mEq/l (+/-2.0); Fractional Inspired Oxygen 21 %; HCO3 ABG 23.1 mEq/l (22.0-26.0); Oxygen Content ABG 17.7 %vol (16.0-22.0); Oxygen Saturation ABG 91.3 % (95.0-100.0); PCO2 ABG 41.4 mmHg (35.0-45.0); PO2 ABG 62.8 mmHg (80.0-100.0); PO2 FiO2 Ratio Arterial Blood 2.99 %; Total Hemoglobin 14.5 g/dL (12.0-18.0); pH ABG 7.364 (7.350-7.450)
[2025-01-18 15:31] LABS: Device ROOM AIR; Modified Allen's Test Pass; Oxyhemoglobin 86.8 % THb (90.0-100.0); Site Drawn LEFT RADIAL
[2025-01-18] MEDS: ALBUTEROL SULFATE NEB 2.5 MG/3 ML INH 10 MG INHALATION (15:37)
[2025-01-18] MEDS: IPRATROPIUM BR 0.02% INH SOLN 0.5 MG/2.5 ML VIAL INHALATION (15:37)
[2025-01-18] MEDS: methylPREDNISolone SOD SUCC 125 MG VIAL IV PUSH (15:43)
[2025-01-18 16:01] LABS: Influenza A QL RT-PCR Negative (Negative); Influenza B QL RT-PCR Negative (Negative); RSV RNA, RT-PCR. Negative (Negative); SARS-CoV-2 RNA PCR Negative (Negative)
[2025-01-18 16:26] LABS: Alanine Aminotransferase 18 U/L (6-35); Albumin Level 4.1 g/dL (3.5-5.1); Alkaline Phosphatase 138 U/L (38-126); Anion Gap 10 mmol/L (4-12); Aspartate Amino Transferase 27 U/L (14-36); Bilirubin,Total 0.1 mg/dL (0.2-1.3); Blood Urea Nitrogen 19 mg/dL (7-17); Calcium 9.5 mg/dL (8.4-10.2); Carbon Dioxide 26 mmol/L (22-30); Chloride 103 mmol/L (98-107); Estimated Glomerular Filt Rate > 60; Glucose 113 mg/dL (65-110); Potassium 4.6 mmol/L (3.4-5.0); Sodium 139 mmol/L (137-145)
== END 2025-01-18 17:20 | disposition home or self-care (01) ==
PROVIDERS: Emergency Provider Emergency Medicine; PCP Family Medicine
DX: J44.1 Chronic obstructive pulmonary disease with (acute) exacerbation (principal); Z20.822 Contact with and (suspected) exposure to COVID-19; E78.5 Hyperlipidemia, unspecified; I11.0 Hypertensive heart disease with heart failure; I50.9 Heart failure, unspecified; J43.9 Emphysema, unspecified; J32.2 Chronic ethmoidal sinusitis; K21.9 Gastro-esophageal reflux disease without esophagitis; K58.9 Irritable bowel syndrome, unspecified; M19.90 Unspecified osteoarthritis, unspecified site; M81.0 Age-related osteoporosis without current pathological fracture; F41.8 Other specified anxiety disorders; F17.210 Nicotine dependence, cigarettes, uncomplicated; Z90.710 Acquired absence of both cervix and uterus; Z98.49 Cataract extraction status, unspecified eye
CPT/HCPCS: 36415; 36600; 71045; 80053; 82805; 83880; 84484; 85018; 85025; 85055; 85610; 85730; 87637; 93005; 94640; 96374; 99284; J2919

== ENCOUNTER 2025-03-18 22:02 | Inpatient (IN) | payer MEDICARE, SELFPAY ==
[2025-03-18] VITALS (7 sets, daily range): BP systolic 113–158; BP diastolic 47–99; PULSE 88–98; RESP 17–24; TEMP 36.4–36.6; O2SAT 92–96
--- NOTE | ~2025-03-18 | XR_ITS ---
EXAMINATION: XR chest 1V portable DATE: 03/18/2025 23:22 INDICATION: Shortness of breath TECHNIQUE: frontal view of the chest was obtained. COMPARISON: Chest radiograph dated 01/18/[address] dated 05/18 FINDINGS: Persistent focal opacity obscuring the apex of the cardiac silhouette which corresponds to a small left paracardial fat pad mild lingular atelectasis/scarring. No new airspace opacities, pulmonary edema, pleural effusion or pneumothorax. Heart size is normal. Severe thoracolumbar spondylosis. IMPRESSION: 1. Chronic mild ventricular atelectasis/scarring. No acute cardiopulmonary disease. Reviewed, dictated and finalized at location A. IMPRESSION: 1. Chronic mild ventricular atelectasis/scarring. No acute cardiopulmonary dise ase.
--- OUTSIDE RECORDS SUMMARY | 2025-03-18 23:02 | XMS_ITS | Clinical Summary ---
Author Organization [facility] Address [address] [place] [id number] Care Team Providers Care Fitter / Welder Name Role Phone Unavailable Primary Care Provider [...] Td Vaccines ( 1 - Tdap) 1965 Pneumococcal Vaccine: 50+ Ye ars (1 of 1 - PCV) 02/03/1996 Zoster Vaccines (1 of 2) 02/03/1996 Dexa Scan (General) 2011 RSV Immunization or 60+ Years (1 - 1-dose 75+ series) 2021 COVID-19 Vaccine ( - 2023-2 5 season) 2024 Meningococcal B Vaccine Aged Out No l onger eligible based on patient's age to complete this topic Meningococcal Vaccine Aged Out No ishmael ting eligible based on patient's age to complete this topic RSV Immunizations Under 20 Months Aged Out No longer eligible based on patient's age to complete this topic
[2025-03-18] MEDS: ALBUTEROL SULFATE NEB 2.5 MG/3 ML INH 10 MG INHALATION (23:06)
[2025-03-18] MEDS: IPRATROPIUM BR 0.02% INH SOLN 0.5 MG/2.5 ML VIAL 2 MG INHALATION (23:06)
[2025-03-18 23:27] LABS: Hematocrit 45.7 % (37.0-47.0); Hemoglobin 14.5 g/dL (12.0-15.0); Immature Granulocyte Percent A 0.1 % (0-0.5); Immature Platelet Fraction Pct 15.2 % (0.9-11.2); Lymphocytes Absolute Auto 1.61 K/mm3 (0.9-3.2); Mean Corpuscular HGB Conc 31.7 g/dl (32-36); Mean Corpuscular Hemoglobin 27.5 pg (26-34); Mean Corpuscular Volume 86.7 fl (80-100); Nucleated Red Blood Cells Absolute Auto 0.000 K/mm3 (0.0-0.012); Nucleated Red Blood Cells Perc 0.0 % (0.0-0.2); Platelet Count Result 173 k/mm3 (150-375); Red Blood Count 5.27 M/mm3 (4.2-5.4); White Blood Count 8.4 K/mm3 (4.5-10.0)
[2025-03-18 23:40] LABS: Alanine Aminotransferase 15 U/L (6-35); Albumin Level 4.2 g/dL (3.5-5.1); Alkaline Phosphatase 135 U/L (38-126); Anion Gap 5 mmol/L (4-12); Aspartate Amino Transferase 26 U/L (14-36); Bilirubin,Total 0.3 mg/dL (0.2-1.3); Blood Urea Nitrogen 26 mg/dL (7-17); Calcium 9.4 mg/dL (8.4-10.2); Carbon Dioxide 28 mmol/L (22-30); Chloride 103 mmol/L (98-107); Estimated Glomerular Filt Rate > 60; Glucose 111 mg/dL (65-110); Magnesium 2.3 mg/dL (1.6-2.3); Potassium 4.1 mmol/L (3.4-5.0); Sodium 136 mmol/L (137-145); Total Protein 7.0 g/dL (6.3-8.2)
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
[2025-03-19] VITALS (26 sets, daily range): BP systolic 115–142; BP diastolic 38–70; PULSE 75–102; RESP 16–23; TEMP 36.2–36.8; O2SAT 91–99; BMI 28.9
--- NOTE | 2025-03-19 01:40 | ADMGEN ---
This patient, Abigail Martinez, was admitted to Medical Room 258-. Patient/family oriented to hospital policies and general routines including ID bracelet, bed and alarms, visiting hours, pain management, procedures, bathroom and other care routines, personal items, smoking policy, room service/diet, and visiting hours. Information on how to activate the Rapid Response Team has been discussed. Patient/Family are encouraged to report perceived risks to care and to ask questions if they do not understand what they are told or what they should do.
--- NOTE | 2025-03-19 03:56 | P.HP_ITS ---
H&P: HPI History of Present Illness Date/Time: 03/19/25 03:56 Chief Complaint: Shortness of breath Narrative: 80-year-old female with a past medical history of COPD/emphysema, nocturnal hypoxemia, grade 1 diastolic dysfunction, essential hypertension, chronic sinusitis/allergic rhinitis who presented to the ER with shortness of breath. The patient reports that she and her work cleaning out a bedroom matter daughter's house and there was lots of dust and animal dander. The next morning when she woke up she was having significant difficulty breathing. She reports that despite using her nebulizer almost constantly she has had increasing work of breathing. She has went through 2 weeks worth of nebulizer solution in 3 days. She reports that her cough is usually chronically productive but since onset of symptoms her cough is now become completely nonproductive. She denies any fevers or chills. She denies any chest pain. She states that she cannot take a deep breath. She reports that her appetite and weight have been stable. She usually uses the oxygen at night and p.r.n. during the day. However since onset of symptoms she has had to use her oxygen almost continuously. She reports that she usually gets more benefit from liquid Mucinex and has tried this at home with no improvement in symptoms. She reports that she feels so bad at this time that she even started thinking about possibly going on palliative care or hospice if her symptoms do not improve. Review of Systems 2 Review of Systems: 12 systems were reviewed with pertinent positives and negatives per HPI. Except as documented in the HPI, all other systems were reviewed and are negative. [facility] Past Medical History Medical History (Updated 03/19/25 @ 04:33 by Beba Tierney DO) Nocturnal hypoxemia due to emphysema Vitamin D deficiency, unspecified Chronic rhinosinusitis B12 deficiency Burn of second degree of left forearm, sequela Shingles COVID-19 long hauler Emphysema lung Insomnia Arthritis Chronic pain Chronic ethmoidal sinusitis Right radial head fracture History of tobacco abuse GERD (gastroesophageal reflux disease) MDD (major depressive disorder), recurrent episode, moderate Benign hypertension without CHF 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 No acute bronchodilator response. Severely decreased DLCO with worsening of her DLCO compared to prior study in November of 2016 Surgical History Surgical History S/P sinus surgery Hx of cataract surgery Hx of hysterectomy History of colonoscopy [address] Garcia History of sinus surgery February [address] Rowe due to chronic maxillary and ethmoid sinusitis History of section History of bladder repair surgery History of hemorrhoidectomy H/O hysterectomy for benign disease Due to uterine fibroids in 1996 Family History Family History Sibling Lung cancer Brother Chronic obstructive pulmonary disease Hypertension Diabetes mellitus Mother Acute myocardial infarction Patient's mother is Sibling Family history of elevated blood lipids Hypertension Diabetes mellitus Alcoholism Social History Social History (Updated 03/19/25 @ 06:00 by Beba Tierney DO) Social History: The patient has been to her for 26 years but they have been for the last 1.5 years. They were in a committed relationship for 13 years prior to getting . She now lives in her own apartment. Her still lives in their home and takes care of the patient's brother who is a disabled . She has 3 children. She has quit smoking multiple times but always returns to smoking she is still intermittently smoking between 1-5 cigarettes a day. She started smoking as a teenager. She denies any significant alcohol use. She does not have any animals in her home. Code status: DNR/DNI per patient request Healthcare power of commercial real estate attorney: Susie Mclain (daughter) Smoking packs per day: 1 Smoking cigarettes per day: 20.0 Years smoked: 55 Smoking pack-years: 55.00 Smoking status: Former smoker Tobacco type: cigarettes Second hand tobacco smoke exposure: Yes Additional smoking assessment comments: pt recently started smoking again about 1 month ago (08/2024) due to stress Alcohol intake: never Substance use: never Substance use type: does not use Do You Feel Safe in your Home?: Yes Lack of Transportation: No Lack of Food: Never True Current Housing: I Have Housing Concerned About Future Housing: No Difficulty Paying Gas/Electric Bills: No Difficulty Paying for Meds: No Currently Unemployed: No Education: Trade/Vocational Certificate Difficulty w/ Childcare or Family Care: No Living arrangements: with family Occupation/Education: retired Gender identity (if verbalized by the patient): Female Sexual Orientation (if Verbalized by the Patient): Straight or Heterosexual Spiritual care concerns: No Agree to blood products: Yes Meds Home Medications and Allergies Home Medications ?Medication ?Instructions ?Recorded ?Confirmed ?Type cholecalciferol (vitamin D3) 1,250 1,250 mcg PO WEEKLY #14 caps 08/24/24 03/19/25 Rx mcg (50,000 unit) capsule furosemide 40 mg tablet 40 mg PO DAILY PRN edema #10 tabs 08/24/24 03/19/25 Rx albuterol sulfate 90 mcg/actuation See Rx Instructions .Route 09/11/24 03/19/25 Rx aerosol inhaler .COMPLEX #9 grams loratadine 10 mg tablet 10 mg PO QHS #30 tabs 02/23/25 Rx albuterol sulfate 2.5 mg/3 mL See Rx Instructions .Rou te 10/30/24 03/19/25 Rx (0.083 %) solution for nebulization .COMPLEX #180 mL azelastine 137 mcg (0.1 %) nasal 2 spray intranasal BI D #30 mL 10/30/24 03/19/25 Rx spray fluticasone propionate 50 2 spray intranasal BID #16 g isael 10/30/24 03/19/25 Rx mcg/actuation nasal spray,suspension losartan 50 mg-hydrochlorothiazide 1 tablet PO DAILY # 90 tabs 11/08/24 03/19/25 Rx 12.5 mg tablet fluticasone fur. 100 mcg-umeclid See Rx Instructions . Route 11/09/24 03/19/25 Rx 62.5 mcg-vilant 25 mcg .COMPLEX #60 ea inhalat.powder (Trelegy Ellipta) temazepam 7.5 mg capsule 7.5 mg PO QHS #30 caps 02/2603/19/25 Rx Allergies Allergy/AdvReac Type Severity Reaction Status Date / Time No Known Allergies Allergy Verified 03/19/25 02:03 Vital Signs Vital Signs - 24 hr 03/18/25 22:14 03/18/25 22:28 03/18/25 22:32 Temperature 97.5 F L Pulse Rate 98 98 94 Respiratory Rate 24 H 24 H 23 H Blood Pressure 142/78 H 158/71 H 113/99 H Pulse Oximetry 93 92 92 Oxygen Delivery Room Air Oxygen Flow Rate 03/18/25 22:34 03/18/25 22:34 03/18/25 22:34 Temperature 97.8 F Pulse Rate 98 98 Respiratory Rate 17 Blood Pressure 113/99 H Pulse Oximetry 93 93 Oxygen Delivery Room Air Room Air Oxygen Flow Rate 03/18/25 22:47 03/18/25 23:07 03/18/25 23:32 Temperature Pulse Rate 95 88 98 Respiratory Rate 23 H 22 H 24 H Blood Pressure 142/71 H 132/47 L Pulse Oximetry 93 96 Oxygen Delivery Oxygen Flow Rate 03/19/25 00:19 03/19/25 00:24 03/19/25 00:45 Temperature Pulse Rate 83 99 102 H Respiratory Rate 23 H 20 18 Blood Pressure 140/49 L Pulse Oximetry 99 92 Oxygen Delivery Oxygen Flow Rate 03/19/25 01:02 03/19/25 02:23 03/19/25 02:33 Temperature 97.2 F L Pulse Rate 91 94 Respiratory Rate 21 H 20 Blood Pressure 120/38 L 135/70 Pulse Oximetry 93 94 94 Oxygen Delivery Nasal Cannula Oxygen Flow Rate 2 Exam 2 Narrative: Weight 65 kg BMI 28.9 Const: Other: Acutely ill-appearing, obese, appears stated age HENMT: Other: Dentures in upper jaw, mucous membranes are tacky, mild posterior oral pharyngeal erythema, head is normocephalic atraumatic Eyes: Other: Pupils are equal and reactive, no scleral icterus Neck: Other: No JVD, no lymphadenopathy Resp: Other: September conversational dyspnea speaking in 2 word sentences, accessory muscle use, frequent cough, bilateral wheezing Cardio: Other: Regular rate, regular rhythm, 2+ bilateral radial pedal pulses GI: Other: Distended, soft Skin: Other: No jaundice, no pallor Neuro: Other: Alert oriented x4, speech is clear, no facial asymmetry, no localizing neurologic deficits noted during the course of conversation, chronic hearing loss Extrem: Other: No cyanosis, no edema Psych: Other: Appropriate mood and affect, pleasant and cooperative, judgment and insight intact H&P: Results Labs Labs: Laboratory Tests 03/18/25 23:10 03/18/25 23:10 03/18/25 23:10 WBC 8.4 RBC 5.27 Hgb 14.5 Hct 45.7 MCV 86.7 MCH 27.5 MCHC 31.7 L RDW 14.7 H Plt Count 173 MPV 13.4 H Immature Gran % (Auto) 0.1 Neut % (Auto) 71.4 Lymph % (Auto) 19.2 [place] % (Auto) 6.5 Eos % (Auto) 2.3 Baso % (Auto) 0.5 Lymph # (Auto) 1.61 [place] # (Auto) 0.6 Eos # (Auto) 0.2 Baso # (Auto) 0.0 Abs Immat Gran (auto) 0.01 Absolute Neuts (auto) 6.0 Absolute Nucleated RBC 0.000 Nucleated RBC % 0.0 % Immature Plt Fraction 15.2 H Sodium 136 L Potassium 4.1 Chloride 103 Carbon Dioxide 28 Anion Gap 5 BUN 26 H Creatinine 0.80 Estim Creat Clear Calc Not Reportable Estimated GFR > 60 Glucose 111 H Calcium 9.4 Magnesium 2.3 Total Bilirubin 0.3 AST 26 ALT 15 Alkaline Phosphatase 135 H Total Protein 7.0 Albumin 4.2 Chest x-ray on my review demonstrates no acute cardiopulmonary process. Radiologic interpretation pending. Assessment and Plan Assessment and plan (1) Acute exacerbation of chronic obstructive pulmonary disease: Code(s): J44.1 - Chronic obstructive pulmonary disease with (acute) exacerbation Status: Acute (2) Nocturnal hypoxemia due to emphysema: Code(s): J43.9 - Emphysema, unspecified; G47.36 - Sleep related hypoventilation in conditions classified elsewhere Status: Acute Plan Patient presents with acute COPD exacerbation with hypoxia. Hypoxia component could be due to acute exacerbation versus patient's chronic nocturnal hypoxemia given that her hypoxia started when she started fall asleep in the ER. Patient once initially treated with IV Solu-Medrol 125 mg and an hour long neb. She still was having significant wheezing but improved tachypnea. Chest x-ray did not demonstrate any obvious acute cardiopulmonary process but there may be some infiltrate in the left lower lobe at the time of my review. Will start azithromycin for possible atypical coverage and to theoretically decrease component of inflammatory process. Will await radiologic interpretation before adding additional antibiotic therapy given patient does not have any fever, leukocytosis or other evidence of acute bacterial infection. The patient had COVID September 2024. Recurrent COVID seems less likely but will check COVID flu and RSV PCR. Will continue steroid therapy and scheduled nebulizers. Will also add p.r.n. nebulizers and Acapella for pulmonary toilet. Will add Mucinex for mucolytic effect. Will consult pulmonology as patient states she is post of follow-up with Sarah this coming week. Patient does have essential hypertension but blood pressures are stable. Will resume home losartan/hydrochlorothiazide. Will continue home Trelegy inhaler and nasal corticosteroids. BUN is slightly elevated above baseline. Will hold patient's home Lasix and re-evaluate be BMP and CBC in a.m.. Patient has been admitted as observation status. MEDICAL DECISION MAKING NARRATIVE -Spoke with the ED provider in detail regarding patient's evaluation, workup and management -Patient seen and examined at bedside -Collaborated with patient's nurse at the bedside in detail and addressed all concerns -Labs, electrolytes, radiology, investigations and test results personally reviewed and interpreted unless otherwise specified -ED/Consult/Nursing/Ancilliary notes on the chart reviewed and appreciated -Spoke with patient at bedside and diagnosis and plan of care was discussed. All questions answered. Quality VTE Prophylaxis VTE prophylaxis: mechanical ordered (SCDs) Hospitalist MIPS Advance Care Plan I have confirmed that the patient's Advanced Care Plan is present, code status is documented, or surrogate decision maker is listed in patient medical record.: Yes Medication Reconciliation I have utilized all available resources to obtain, update and review the patients current medications (includes all prescriptions, OTC, herbals, cannabis, and nutritional supplements).: Yes
[2025-03-19 05:54] LABS: Influenza A QL RT-PCR Negative (Negative); Influenza B QL RT-PCR Negative (Negative); RSV RNA, RT-PCR Negative (Negative); SARS-CoV-2 RNA PCR Negative (Negative)
[2025-03-19] MEDS: ALBUTEROL SULFATE NEB 2.5 MG/3 ML INH 5 MG INHALATION ×2 (06:18→07:53)
[2025-03-19] MEDS: FLUTICASONE/UMECLIDIN/VILANTER 100-62.5-25 MCG ELLIPTA 1 PUFF INHALATION (07:53)
--- NOTE | 2025-03-19 07:54 | PM.IMPN ---
Progress Note: A&P Assessment and Plan (1) Acute exacerbation of chronic obstructive pulmonary disease: Code(s): J44.1 - Chronic obstructive pulmonary disease with (acute) exacerbation Status: Acute Assessment and Plan: Present with shortness of breath in the setting of COPD, complains of nocturnal hypoxia, chronic smoker, multiple COPD exacerbation in the past Chest x-ray shows no acute infiltrate or consolidation-only chronic mild ventricular atelectasis or scarring Status post IV Solu-Medrol and nebulizer Pulmonology consulted, appreciate recs Per pulmonology, discontinued Trelegy Continue home Flonase and Astelin q.12 hours P.r.n. DuoNebs, Mucinex Continue 500 mg of azithromycin for 2 more days as anti-inflammatory agent Her pulmonology, Solumedrol dose reduce to 20 mg q.6 hours Continue DuoNebs Q 4 p.r.n. Continue guaifenesin q.12 hours Acapella/incentive spirometry/chest physiotherapy Follow-up with strep pneumo and Legionella antigen Follow serum mycoplasma IgM, BNP and CRP Smoking cessation counseling was given, she is willing to try Chantix as outpatient (2) Nocturnal hypoxemia due to emphysema: Code(s): J43.9 - Emphysema, unspecified; G47.36 - Sleep related hypoventilation in conditions classified elsewhere Status: Acute Assessment and Plan: Will order overnight pulse oximetry study Management like a (3) HTN (hypertension): Code(s): I10 - Essential (primary) hypertension Status: Acute Assessment and Plan: Patient takes losartan and hydrochlorothiazide at home Subjective Date/time seen: 03/19/25 07:54 Interval history: Patient was admitted for frequent cough and shortness of breath. She reports she is having multiple COPD exacerbation for the last 6 months. She does not treated get better from her prior COPD exacerbation. She has on dry cough. She denies fever/chills/chest pain/headache. No abdominal pain/diarrhea. Patient is a chronic smoker and she is still smoking. She is very in distress when she talked about her smoking habit. She never tried medication to quit smoking. Overall she is feeling better and she still uses oxygen. She uses oxygen at night. Exam Narrative: APPEARANCE: No acute distress EYES: EOMI HEENT: Normocephalic, atraumatic, OMM RESPIRATORY: No respiratory distress Clear to auscultation bilaterally with no rhonchi wheezing or rales. CARDIOVASCULAR: RRR, S1 and S2 without murmurs rubs or gallops. ABDOMINAL: Soft, nontender, nondistended, no rebound or guarding MSK: 5/5 motor strength in all extremities, no swelling in the Legs NEURO: Awake and alert. Following commands, speech normal, no focal deficits SKIN:: Warm, dry. No rashes lesions or abrasions PSYCHIATRIC: Labile mood Objective Data Vital Signs Vital Signs: Vital Signs - 24 hr 03/18/25 22:14 03/18/25 22:28 03/18/25 22:32 Temperature 36.4 C L Pulse Rate 98 98 94 Respiratory Rate 24 H 24 H 23 H Blood Pressure 142/78 H 158/71 H 113/99 H Pulse Oximetry 93 92 92 Oxygen Delivery Room Air Oxygen Flow Rate 03/18/25 22:34 03/18/25 22:34 03/18/25 22:34 Temperature 36.6 C Pulse Rate 98 98 Respiratory Rate 17 Blood Pressure 113/99 H Pulse Oximetry 93 93 Oxygen Delivery Room Air Room Air Oxygen Flow Rate 03/18/25 22:47 03/18/25 23:07 03/18/25 23:32 Temperature Pulse Rate 95 88 98 Respiratory Rate 23 H 22 H 24 H Blood Pressure 142/71 H 132/47 L Pulse Oximetry 93 96 Oxygen Delivery Oxygen Flow Rate 03/19/25 00:19 03/19/25 00:24 03/19/25 00:45 Temperature Pulse Rate 83 99 102 H Respiratory Rate 23 H 20 18 Blood Pressure 140/49 L Pulse Oximetry 99 92 Oxygen Delivery Oxygen Flow Rate 03/19/25 01:02 03/19/25 02:23 03/19/25 02:33 Temperature 36.2 C L Pulse Rate 91 94 Respiratory Rate 21 H 20 Blood Pressure 120/38 L 135/70 Pulse Oximetry 93 94 94 Oxygen Delivery Nasal Cannula Oxygen Flow Rate 2 03/19/25 04:00 03/19/25 06:00 03/19/25 06:24 Temperature 36.3 C L 36.3 C L Pulse Rate 84 84 84 Respiratory Rate 20 20 20 Blood Pressure 140/65 140/65 Pulse Oximetry 94 94 Oxygen Delivery Oxygen Flow Rate 03/19/25 06:34 Temperature Pulse Rate 86 Respiratory Rate 20 Blood Pressure Pulse Oximetry Oxygen Delivery Oxygen Flow Rate Intake/Output Intake/Output: Intake & Output 03/16/25 03/17/25 03/18/25 03/19/25 23:59 23:59 23:59 23:59 Intake Total 150 Balance 150 Meds/Results Medications: Active Medications Generic Name Dose Route Start Last Admin Trade Name Freq PRN Reason Stop Dose Admin Albuterol 5 mg 03/19/25 08:00 03/19/25 07:53 Albuterol Sulfate Neb 2.5 Mg/3 Ml Inh INHALATION 5 mg Q6HRT ARNAV Administration Albuterol 5 mg 03/19/25 05:58 03/19/25 06:18 Albuterol Sulfate Neb 2.5 Mg/3 Ml Inh INHALATION 5 mg Q6HRT PRN Administration Shortness Of Breath Azelastine HCl 1 spray 03/19/25 09:00 Azelastine Hcl Nasal 0.1% 137 Mcg/Spr 30 Ml Btl NASAL Q12HR ARNAV Azithromycin 500 mg 03/19/25 09:00 Azithromycin 500 Mg Tablet PO DAILY ARNAV Ergocalciferol 1,250 mcg 03/20/25 09:00 Ergocalciferol (Vitamin D2) 1,250 Mcg (50,000 Units) Capsule PO 04/19/25 08:59 Tu@0900 ARNAV Fluticasone Propionate 1 spray 03/19/25 09:00 Fluticasone Propionate 0.05% Na Spr 16 Gm Btl (*Bkc) NASAL Q12HR ARNAV Fluticasone/Umeclidinium/Vilanterol 1 puff 03/19/25 08:00 03/19/25 07:53 Fluticasone/Umeclidin/Vilanter 100-62.5-25 Mcg Ellipta INHALATION 1 puff DAILYRT ARNAV Administration Guaifenesin 1,200 mg 03/19/25 09:00 Guaifenesin 12 Hr 600 Mg Tabcr PO Q12HR ARNAV Hydrochlorothiazide 12.5 mg 03/19/25 09:00 Hydrochlorothiazide 12.5 Mg Capsule PO QAM ARNAV Losartan Potassium 50 mg 03/19/25 09:00 Losartan Potassium 50 Mg Tablet PO QAM ARNAV Methylprednisolone Sodium Succinate 60 mg 03/19/25 06:00 03/19/25 05:33 Methylprednisolone Sod Succ 125 Mg Vial IV PUSH 60 mg Q6HR ARNAV Administration Temazepam 7.5 mg 03/19/25 21:00 Temazepam (*Crx) 7.5 Mg Capsule PO QHS ARNAV Labs Labs: Laboratory Results - last 24 hr 03/18/25 03/19/25 23:10 04:50 WBC 8.4 RBC 5.27 Hgb 14.5 Hct 45.7 MCV 86.7 MCH 27.5 MCHC 31.7 L RDW 14.7 H Plt Count 173 MPV 13.4 H Immature Gran % (Auto) 0.1 Neut % (Auto) 71.4 Lymph % (Auto) 19.2 [place] % (Auto) 6.5 Eos % (Auto) 2.3 Baso % (Auto) 0.5 Lymph # (Auto) 1.61 [place] # (Auto) 0.6 Eos # (Auto) 0.2 Baso # (Auto) 0.0 Abs Immat Gran (auto) 0.01 Absolute Neuts (auto) 6.0 Absolute Nucleated RBC 0.000 Nucleated RBC % 0.0 % Immature Plt Fraction 15.2 H Sodium 136 L Potassium 4.1 Chloride 103 Carbon Dioxide 28 Anion Gap 5 BUN 26 H Creatinine 0.80 Estim Creat Clear Calc Not Reportable Estimated GFR > 60 Glucose 111 H Calcium 9.4 Magnesium 2.3 Total Bilirubin 0.3 AST 26 ALT 15 Alkaline Phosphatase 135 H Total Protein 7.0 Albumin 4.2 Influenza A (RT-PCR) Negative Influenza B (RT-PCR) Negative RSV (RT-PCR) Negative SARS-CoV-2 RNA (RT-PCR) Negative Quality VTE Prophylaxis VTE prophylaxis: mechanical ordered (SCDs) and pharmacologic ordered (Lovenox)
[2025-03-19] MEDS: LOSARTAN POTASSIUM 50 MG TABLET PO (08:17)
[2025-03-19] MEDS: AZITHROMYCIN 500 MG TABLET PO (08:17)
[2025-03-19] MEDS: guaiFENesin 12 HR 600 MG TABCR 1200 MG PO ×2 (08:17→20:42)
[2025-03-19] MEDS: FLUTICASONE PROPIONATE 0.05% NA SPR 16 GM BTL (*BKC) 1 SPRAY NASAL ×2 (08:18→20:38)
[2025-03-19] MEDS: AZELASTINE HCL NASAL 0.1% 137 MCG/SPR 30 ML BTL 1 SPRAY NASAL ×2 (08:18→20:38)
--- NOTE | 2025-03-19 09:51 | P.CONPL_ITS ---
Assessment and Plan Assessment and plan (1) Acute exacerbation of chronic obstructive pulmonary disease: Code(s): J44.1 - Chronic obstructive pulmonary disease with (acute) exacerbation Status: Acute Assessment and Plan: Gold grade 2 group E COPD patient with 55 pack year tobacco use, quit 2021, lifelong exposure to secondhand tobacco use, PFTs 07/29/2017: FEV1 58% of predicted. Decreased maximal expiratory airflow at all lung volumes with a concave expiratory flow tracing. The FEV1: FVC ratio is 58%. Hyperinflation. The absolute diffusion capacity is 8.0, 42% predicted. The diffusion capacity corrected for alveolar volume is 2.72, 75% predicted. CT scan of the chest on 05/01/2024 with mild apical predominant centrilobular emphysema. patient using 2 L nasal cannula at night and p.r.n. during the day. ABG 01/18/2025 on room air 7.36/41/63. Echocardiogram 10/21/2024 with LVEF greater than 70%, grade 1 diastolic dysfunction, normal right ventricular size and function. Normal right atrial size, PASP 25. Maintained on home trelegy 100, prescribed azithromycin 250 3 times week but noncompliant and rescue albuterol. she continues to smoke and has had 5 exacerbations in the last 6 months. Today the patient tells me she never really got better after her illness on 02/22/2025 and is been the slow day by day worsening in her respiratory symptoms since then. Over the last 3-4 days she developed which she describes as a bad cold with a dry cough, sneezing, rhinorrhea, sinus congestion and worsening shortness of breath. She denies fever, chills, rigors. The patient tells me she has not been taking her azithromycin 3 times a week and has not been taking her Claritin. The patient tells me she is still smoking 3-20 cigarettes a day and she is tearful when she describes this habit. she tells me she is using 2 L at night and p.r.n. oxygen during the day Patient presented to the emergency department on 03/18/2025 with a blood pressure 124/78, heart rate 98, room air saturations 93%. She had inspiratory and expiratory wheezes. Her white blood cell count was 8.3, her creatinine was 0.8, eosinophils were 2.3% with a total eosinophil count of 193 per micro L. Chest x-ray showed no disease. Her weight was 64.6 kg. She was treated for COPD exacerbation with Solu-Medrol, DuoNebs and azithromycin 500 p.o.. 03/19/2025: I will treat the patient for COPD exacerbation. Overall the patient feels better. Her dry cough is resolved, she has no wheezing. She is afebrile. Procalcitonin 0.1. Currently she is on 2 L nasal cannula saturations 92%. Plan: Patient is improved and is no longer wheezing. I will decrease her Solu-Medrol from 60 q.6 to 20 q.6. continue azithromycin 500 mg p.o. q.day, day 2. Continue a DuoNebs q.4 hours. Continue guaifenesin 1200 q.12 hours. Since she is on maximum dose bronchodilators and high-dose systemic steroids I will discontinue her trelegy. Her sinuses are controlled and will continue her home Flonase 1 spray each nostril q.12 hours and Astelin 1 spray each nostril q.12 hours. Regarding etiologies of her COPD exacerbation I will send an respiratory pathogen panel, serum mycoplasma IgM, urine Legionella antigen and urine pneumococcal antigen. I will check a BNP and a CRP. Smoking cessation counseling was discussed. (2) History of tobacco use: Code(s): Z87.891 - Personal history of nicotine dependence Status: Acute Assessment and Plan: The patient is a current smoker and smoked the day of admission. She did quit for 3 weeks in October of 2024 but relapsed because of stress. The patient understands that the cigarettes or actively killing her and she cries when she talks about her addiction. She has tried nicotine gum and lozenges in the past but these were unsuccessful. Plan: Patient does wish to quit. Patient states she is willing to try Chantix in the future. History of Present Illness History of Present Illness Consult date: 03/19/25 Chief complaint: COPD exacerbation Narrative: 03/19/2025: This is a new pulmonary consult for COPD exacerbation. 80-year-old with a history of hypertension, GERD, anxiety, COPD on supplemental oxygen. Patient is followed in the [facility]monary [facility] in last seen on 09/20/2024: This is the note. COPD Last visit 09/2023 Abigail is a pleasant 79yo F here for follow up regarding COPD on oxygen. * 08/2023 ER visit for COPD exacerbation. * 08/19/24 visit for COPD exacerbation. COVID/flu/RSV negative. Rx Augmentin and was prescribed prednisone the day prior by myself COPD: Today she tells me she's had increased SOB and coughing over the last month. Has been back to smoking close to 1ppd lately and cold weather has affected her breathing. SOB worse. Chronic productive coughing of white sputum. No hemoptysis. She reports wheezing. Feels like she needs another round of prednisone. Longstanding sinus issues, had sinus surgery in the past. Follows with Dr Gaitan but hard for her to get to his [place] clinic she says. Using Flonase + azelastine nasal sprays once daily and needs refills. She is using Trelegy 100 1 puff once daily; albuterol HFA and nebulizer PRN. Albuterol HFA use varies - 1-3x daily. Using albuterol nebulizer 2-3x per day currently. She bought portable nebulizer from [employer] which is nice to keep with her. O2: Per 10/2022 testing she was using 2L/min O2 with ambulation during the day. We repeated home O2 eval 09/2023 with intentions of trying to get her POC but she didn't require supplemental O2 on that testing. She has not been using O2 during the day lately. Checking her O2 saturations at home and states they've stayed in the 90s% even when she doesn't feel well. She was using O2 with sleep but felt like 1L/min was too much. She's done without O2 at night recently and started having morning headaches a few days ago. Tobacco: Current smoker, 55 pack year history of tobacco use, quit in 2016 now back to smoking less than 1ppd currently. Plan: Currently with an exacerbation (09/20/24) and given a 12 day steroid taper. Continue trelegy 100, rescue albuterol, start azithromycin 250 3 times a week, Flonase, Astelin 1 spray each nostril twice a day, follow-up with ENT. No oxygen at rest or with activity per last testing on 10/13/2023, prescribed 2 L at night based on overnight oximetry July of 2021 but can not tolerate this and was on no oxygen at night. I encouraged her to try 0.5 L at night. Aged out of low-dose CT scan. 10/20/2024 through 10/23/2024: admitted to [facility] for COPD exacerbation, COVID RT PCR positive, hypercarbic respiratory failure with venous blood gas 7.26/75/ less than 27. Patient placed on BiPAP 12/ with repeat gas 4 hours later 7.34/46/77. Discharged on Augmentin and prednisone. I called the patient on 10/30/2024 and she improved until 10/28/2024 and then developed shortness of breath, dyspnea on exertion and cough with phlegm that has turned green today. I treated with Augmentin x7 days, prednisone x5 days, increase her Flonase and Astelin to 2 sprays each nostril twice a day, continue trilogy, azithromycin 3 times a week, Claritin 10 a day and Mucinex 600 b.i.d.. She was still smoking 6-7 cigarettes a day and I told her the cigarettes were killing her. she would by stronger nicotine patches. 11/07/2024: I called the patient and she said she was definitely better but still had dyspnea on exertion. Her sinus congestion was better. She tried the nicotine patches but this did not help her but she has been able to quit herself. 01/18/2025: ED visit for shortness of breath, dyspnea on exertion, coughing, wheezing states she smokes cigarettes. Bilateral wheezes. ABG on room air 7.36/41/63. improved with Steroids, bronchodilators and discharged on prednisone and Levaquin. 02/22/2025: PCP office visit note. Symptoms worse after cleaning cong room earlier this week. Lungs with rhonchi and wheezing. Room air sats 91%. Not in respiratory distress. Repeat prednisone taper and Z-Andrews. Today the patient tells me she never really got better after her illness on 02/22/2025 and is been the slow day by day worsening in her respiratory symptoms since then. Over the last 3-4 days she developed which she describes as a bad cold with a dry cough, sneezing, rhinorrhea, sinus congestion and worsening shortness of breath. She denies fever, chills, rigors. The patient tells me she has not been taking her azithromycin 3 times a week and has not been taking her Claritin. The patient tells me she is still smoking 3-20 cigarettes a day and she is tearful when she describes this habit. she tells me she is using 2 L at night and p.r.n. oxygen during the day Patient presented to the emergency department on 03/18/2025 with a blood pressure 124/78, heart rate 98, room air saturations 93%. She had inspiratory and expiratory wheezes. Her white blood cell count was 8.3, her creatinine was 0.8, eosinophils were 2.3% with a total eosinophil count of 193 per micro L. Chest x-ray showed no disease. Her weight was 64.6 kg. She was treated for COPD exacerbation with Solu-Medrol, DuoNebs and azithromycin 500 p.o.. 03/19/2025: Overall the patient feels better. Her dry cough is resolved, she has no wheezing. She is afebrile. Currently she is on 2 L nasal cannula saturations 92%. DATA: 10/21/2024: Summary 1. Complete two-dimensional, color flow and Doppler transthoracic echocardiogram is performed. 2. Left ventricular chamber dimension is normal. 3. Left ventricular systolic function is hyperdynamic, estimated at >70%. 4. There is mildly increased left ventricular wall thickness. 5. The left ventricular diastolic function is grade I diastolic dysfunction. 6. Left atrial chamber dimension is mildly enlarged. 7. There is mild tricuspid valve regurgitation. Right Ventricle Right ventricular chamber dimension is normal. Right ventricular systolic function is normal. Right Atria Right atrial chamber dimension is normal. Atrial Septum Intact interatrial septum visualized by color flow imaging. RVSP 25. * 1/25/25 - CXR - Calcified nodule at the basilar left lower lobe calcified left hilar lymph nodes consistent with sequela of old granulomatous disease. No other airspace opacities, pulmonary edema, pleural effusion or pneumothorax. Heart size is normal. Impression: No acute cardiopulmonary disease. * 10/13/23 - Home O2 eval - Patient did not require supplemental oxygen at rest or with ambulation. * 04/21/23 - LDCT - There are scattered bilateral nodules throughout both lungs measuring 3mm or less. There is emphysema. No focal airspace consolidation. * 11/13/22 - Home O2 eval - Patient required 2L/min O2 with ambulation and none at rest. * 04/20/22 - LDCT - Stable small bilateral pulmonary nodules measuring 3mm or less. No new pulmonary nodules or masses. * 08/05/2021 - Overnight oximetry performed on 1L/min O2 with sleep. Data recorded for 7.5 hours. Patient spent 57 minutes below 88% O2 saturation with 13 minutes consecutively less than 88%. Oxygen desaturation index 23. Patient was instructed to wear 2L/min O2 at night with sleep and overnight oximetry was repeated on 2L/min. * 08/08/21 - Overnight oximetry on 2L/min with sleep - 8 min spent below 88% saturation, all at the very beginning of the study, after which oxygen saturation consistent remained above 90%. NILAY 9. * 04/18/21 - LDCT - Emphysema. Scattered nodules 3mm or less in both lungs without significant change compared to 04/2020. Lung-RADS category 2: Continue annual screening with LDCT in 12 months. * 10/04/20 - Overnight oximetry on room air - Low saturation 70%, high saturation 99%, average 90%; time with saturation at 88% or below was 42.4 minutes. She was prescribed 1L/min O2 at night. * 10/10/20 - Home O2 assessment - Required no oxygen at rest, 2L with activity. * 07/29/2017 - PFT - FEV1 58% of predicted. Decreased maximal expiratory airflow at all lung volumes with a concave expiratory flow tracing. The FEV1: FVC ratio is 58%. The absolute diffusion capacity is 8.0, 42% predicted. The diffusion capacity corrected for alveolar volume is 2.72, 75% predicted. * 04/29/2020 - CTA chest - mild apical centrilobular and paraseptal emphysema. Mild left lingula and lower lobe atelectasis chronic less than 3 mm noncalcified pulmonary nodules unchanged since 09/28/2017. Calcified OGT. No PE. * 05/22/2019- Echo - with normal LV systolic function 65-70%. Grade 1 diastolic dysfunction. There is trace tricuspid regurg with an estimated pulmonary arterial systolic pressure of 40. Review of Systems 2 Constitutional: Constitutional: Reports no additional constitutional complaints Eyes: Eyes: Reports no additional eye complaints ENT: Reports system reviewed and no additional complaints, except as documented Cardiovascular: Cardiovascular: Reports no additional cardiovascular complaints Respiratory: Respiratory: Reports no additional respiratory complaints Gastrointestinal: Gastrointestinal: Reports no additional gastrointestinal complaints Musculoskeletal: Musculoskeletal: Reports no additional musculoskeletal complaints Neurologic: Reports system reviewed and no additional complaints, except as documented Psychiatric: Psychiatric: Reports no additional psychiatric complaints Endocrine: Endocrine: Reports no additional endocrine complaints Hematologic/Lymphatic: Hematologic/Lymphatic: Reports no additional hematologic/lymphatic complaints Allergic/Immunologic: Allergic/Immunologic: Reports no additional allergic/immunologic complaints [facility] Past Medical History Medical History (Updated 03/19/25 @ 08:06 by Sis Gould MD) HTN (hypertension) Nocturnal hypoxemia due to emphysema Vitamin D deficiency, unspecified Chronic rhinosinusitis B12 deficiency Burn of second degree of left forearm, sequela Shingles COVID-19 long hauler Emphysema lung Insomnia Arthritis Chronic pain Chronic ethmoidal sinusitis Right radial head fracture History of tobacco abuse GERD (gastroesophageal reflux disease) MDD (major depressive disorder), recurrent episode, moderate Benign hypertension without CHF 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 No acute bronchodilator response. Severely decreased DLCO with worsening of her DLCO compared to prior study in November of 2016 Surgical History Surgical History S/P sinus surgery Hx of cataract surgery Hx of hysterectomy History of colonoscopy [address] Garcia History of sinus surgery February [address] Rowe due to chronic maxillary and ethmoid sinusitis History of section History of bladder repair surgery History of hemorrhoidectomy H/O hysterectomy for benign disease Due to uterine fibroids in 1996 Family History Family History Sibling Lung cancer Brother Chronic obstructive pulmonary disease Hypertension Diabetes mellitus Mother Acute myocardial infarction Patient's mother is Sibling Family history of elevated blood lipids Hypertension Diabetes mellitus Alcoholism Social History Social History (Updated 03/19/25 @ 06:00 by Beba Tierney DO) Social History: The patient has been to her for 26 years but they have been for the last 1.5 years. They were in a committed relationship for 13 years prior to getting . She now lives in her own apartment. Her still lives in their home and takes care of the patient's brother who is a disabled . She has 3 children. She has quit smoking multiple times but always returns to smoking she is still intermittently smoking between 1-5 cigarettes a day. She started smoking as a teenager. She denies any significant alcohol use. She does not have any animals in her home. Code status: DNR/DNI per patient request Healthcare power of insurance defense attorney: Susie Mclain (daughter) Smoking packs per day: 1 Smoking cigarettes per day: 20.0 Years smoked: 55 Smoking pack-years: 55.00 Smoking status: Former smoker Tobacco type: cigarettes Second hand tobacco smoke exposure: Yes Additional smoking assessment comments: pt recently started smoking again about 1 month ago (08/2024) due to stress Alcohol intake: never Substance use: never Substance use type: does not use Do You Feel Safe in your Home?: Yes Lack of Transportation: No Lack of Food: Never True Current Housing: I Have Housing Concerned About Future Housing: No Difficulty Paying Gas/Electric Bills: No Difficulty Paying for Meds: No Currently Unemployed: No Education: Trade/Vocational Certificate Difficulty w/ Childcare or Family Care: No Living arrangements: with family Occupation/Education: retired Gender identity (if verbalized by the patient): Female Sexual Orientation (if Verbalized by the Patient): Straight or Heterosexual Spiritual care concerns: No Agree to blood products: Yes Meds Home Medications and Allergies Home Medications ?Medication ?Instructions ?Recorded ?Confirmed ?Type cholecalciferol (vitamin D3) 1,250 1,250 mcg PO WEEKLY #14 caps 08/24/24 03/19/25 Rx mcg (50,000 unit) capsule furosemide 40 mg tablet 40 mg PO DAILY PRN edema #10 tabs 08/24/24 03/19/25 Rx albuterol sulfate 90 mcg/actuation See Rx Instructions .Route 09/11/24 03/19/25 Rx aerosol inhaler .COMPLEX #9 grams loratadine 10 mg tablet 10 mg PO QHS #30 tabs 02/23/25 Rx albuterol sulfate 2.5 mg/3 mL See Rx Instructions .Rou te 10/30/24 03/19/25 Rx (0.083 %) solution for nebulization .COMPLEX #180 mL azelastine 137 mcg (0.1 %) nasal 2 spray intranasal BI D #30 mL 10/30/24 03/19/25 Rx spray fluticasone propionate 50 2 spray intranasal BID #16 g isael 10/30/24 03/19/25 Rx mcg/actuation nasal spray,suspension losartan 50 mg-hydrochlorothiazide 1 tablet PO DAILY # 90 tabs 11/08/24 03/19/25 Rx 12.5 mg tablet fluticasone fur. 100 mcg-umeclid See Rx Instructions . Route 11/09/24 03/19/25 Rx 62.5 mcg-vilant 25 mcg .COMPLEX #60 ea inhalat.powder (Trelegy Ellipta) temazepam 7.5 mg capsule 7.5 mg PO QHS #30 caps 02/2603/19/25 Rx Allergies Allergy/AdvReac Type Severity Reaction Status Date / Time No Known Allergies Allergy Verified 03/19/25 02:03 Vital Signs Vital Signs - 24 hr 03/18/25 22:14 03/18/25 22:28 03/18/25 22:32 Temperature 36.4 C L Pulse Rate 98 98 94 Respiratory Rate 24 H 24 H 23 H Blood Pressure 142/78 H 158/71 H 113/99 H Pulse Oximetry 93 92 92 Oxygen Delivery Room Air Oxygen Flow Rate 03/18/25 22:34 03/18/25 22:34 03/18/25 22:34 Temperature 36.6 C Pulse Rate 98 98 Respiratory Rate 17 Blood Pressure 113/99 H Pulse Oximetry 93 93 Oxygen Delivery Room Air Room Air Oxygen Flow Rate 03/18/25 22:47 03/18/25 23:07 03/18/25 23:32 Temperature Pulse Rate 95 88 98 Respiratory Rate 23 H 22 H 24 H Blood Pressure 142/71 H 132/47 L Pulse Oximetry 93 96 Oxygen Delivery Oxygen Flow Rate 03/19/25 00:19 03/19/25 00:24 03/19/25 00:45 Temperature Pulse Rate 83 99 102 H Respiratory Rate 23 H 20 18 Blood Pressure 140/49 L Pulse Oximetry 99 92 Oxygen Delivery Oxygen Flow Rate 03/19/25 01:02 03/19/25 02:23 03/19/25 02:33 Temperature 36.2 C L Pulse Rate 91 94 Respiratory Rate 21 H 20 Blood Pressure 120/38 L 135/70 Pulse Oximetry 93 94 94 Oxygen Delivery Nasal Cannula Oxygen Flow Rate 2 03/19/25 04:00 03/19/25 06:00 03/19/25 06:24 Temperature 36.3 C L 36.3 C L Pulse Rate 84 84 84 Respiratory Rate 20 20 20 Blood Pressure 140/65 140/65 Pulse Oximetry 94 94 Oxygen Delivery Oxygen Flow Rate 03/19/25 06:34 03/19/25 07:53 03/19/25 07:56 Temperature 36.4 C Pulse Rate 86 85 Respiratory Rate 20 17 Blood Pressure 136/65 Pulse Oximetry 91 92 Oxygen Delivery Nasal Cannula Oxygen Flow Rate 2 03/19/25 07:56 03/19/25 08:08 Temperature Pulse Rate 85 90 Respiratory Rate 20 20 Blood Pressure Pulse Oximetry Oxygen Delivery Oxygen Flow Rate Exam 2 Const: General: cooperative, healthy appearing and comfortable O rientation/consciousness: oriented to person, oriented to place and oriented to time HENMT: Head: normal to inspection Ears: hearing grossly normal bilaterally Eyes: General: appearance normal, both eyes and all related structures Neck: Neck: normal visual inspection Chest: Chest palpation & inspection: normal inspection of the chest Resp: Effort & Inspection: normal respiratory effort and able to speak in complete sentences Auscultation: no crackles, no rales, no rhonchi, no wheezes and diminished lung sounds Cardio: Jugular venous distension: no JVD GI: Inspection: normal to inspection GI Palp: No abdominal tenderness Skin: General skin exam: normal color Neuro: General: oriented to person, oriented to place and oriented to time Extrem: General: normal to inspection Psych: Appearance: grossly normal Results Laboratory Findings 03/18/25 23:10 03/18/25 23:10 Abnormal lab findings: Abnormal Labs 03/18/25 23:10 MCHC 31.7 L RDW 14.7 H MPV 13.4 H % Immature Plt Fraction 15.2 H Sodium 136 L BUN 26 H Glucose 111 H Alkaline Phosphatase 135 H
[2025-03-19 11:49] LABS: Procalcitonin 0.1 ng/mL
[2025-03-19 12:25] LABS: CRP 1.2 mg/dL (<1.0)
[2025-03-19 12:37] LABS: NT Pro B Type Natriuretic Pept 50 pg/mL (19.9-100)
[2025-03-19] MEDS: IPRATROPIUM 0.5 MG/ALBUTEROL SULFATE 2.5 MG AMPUL.NEB 3 ML INHALATION ×3 (13:54→19:27)
[2025-03-19] MEDS: TEMAZEPAM (*CRX) 7.5 MG CAPSULE PO (20:42)
[2025-03-20] VITALS (19 sets, daily range): BP systolic 113–147; BP diastolic 48–55; PULSE 75–101; RESP 16–20; TEMP 36.4–37; O2SAT 91–99
[2025-03-20] MEDS: IPRATROPIUM 0.5 MG/ALBUTEROL SULFATE 2.5 MG AMPUL.NEB 3 ML INHALATION ×6 (00:11→20:39)
[2025-03-20 05:04] LABS: Hematocrit 43.0 % (37.0-47.0); Hemoglobin 13.6 g/dL (12.0-15.0); Immature Granulocyte Percent A 0.4 % (0-0.5); Immature Platelet Fraction Pct 16.0 % (0.9-11.2); Lymphocytes Absolute Auto 0.33 K/mm3 (0.9-3.2); Mean Corpuscular HGB Conc 31.6 g/dl (32-36); Mean Corpuscular Hemoglobin 27.6 pg (26-34); Mean Corpuscular Volume 87.4 fl (80-100); Nucleated Red Blood Cells Absolute Auto 0.000 K/mm3 (0.0-0.012); Nucleated Red Blood Cells Perc 0.0 % (0.0-0.2); Platelet Count Result 149 k/mm3 (150-375); Red Blood Count 4.92 M/mm3 (4.2-5.4); White Blood Count 9.6 K/mm3 (4.5-10.0)
[2025-03-20 05:26] LABS: Alanine Aminotransferase 23 U/L (6-35); Albumin Level 4.1 g/dL (3.5-5.1); Alkaline Phosphatase 138 U/L (38-126); Anion Gap 7 mmol/L (4-12); Aspartate Amino Transferase 30 U/L (14-36); Bilirubin,Total 0.3 mg/dL (0.2-1.3); Blood Urea Nitrogen 18 mg/dL (7-17); Calcium 9.4 mg/dL (8.4-10.2); Carbon Dioxide 25 mmol/L (22-30); Chloride 103 mmol/L (98-107); Estimated Glomerular Filt Rate > 60; Glucose 183 mg/dL (65-110); Potassium 4.4 mmol/L (3.4-5.0); Sodium 135 mmol/L (137-145); Total Protein 6.7 g/dL (6.3-8.2)
--- NOTE | 2025-03-20 07:35 | PM.IMPN ---
Progress Note: A&P Assessment and Plan (1) Acute exacerbation of chronic obstructive pulmonary disease: Code(s): J44.1 - Chronic obstructive pulmonary disease with (acute) exacerbation Status: Acute Assessment and Plan: Present with shortness of breath in the setting of COPD, complains of nocturnal hypoxia, chronic smoker, multiple COPD exacerbation in the past Chest x-ray shows no acute infiltrate or consolidation-only chronic mild ventricular atelectasis or scarring Status post IV Solu-Medrol and nebulizer Pulmonology consulted, appreciate recs Per pulmonology, discontinued Trelegy Continue home Flonase and Astelin q.12 hours P.r.n. DuoNebs, Mucinex Continue 500 mg of azithromycin for 2 more days as anti-inflammatory agent Discontinue Solu-Medrol Continue prednisone Continue DuoNebs Q 6p.r.n. Continue guaifenesin q.12 hours Acapella/incentive spirometry/chest physiotherapy Follow-up with strep pneumo and Legionella antigen Follow serum mycoplasma IgM, BNP and CRP Smoking cessation counseling was given, she is willing to try Chantix as outpatient (2) Nocturnal hypoxemia due to emphysema: Code(s): J43.9 - Emphysema, unspecified; G47.36 - Sleep related hypoventilation in conditions classified elsewhere Status: Acute Assessment and Plan: Will order overnight pulse oximetry study (3) HTN (hypertension): Code(s): I10 - Essential (primary) hypertension Status: Acute Assessment and Plan: Patient takes losartan and hydrochlorothiazide at home Subjective Date/time seen: 03/20/25 07:35 Interval history: Patient lives with her daughter at home. Her daughter has multiple medical condition. No acute events reported. Possible discharge tomorrow. Overnight oximetry on 2 L tonight. Review of Systems Review of Systems: 12 systems were reviewed with pertinent positives and negatives per HPI. Except as documented in the HPI, all other systems were reviewed and are negative. Exam Narrative: APPEARANCE: No acute distress EYES: EOMI HEENT: Normocephalic, atraumatic, OMM RESPIRATORY: No respiratory distress Clear to auscultation bilaterally with no rhonchi wheezing or rales. CARDIOVASCULAR: RRR, S1 and S2 without murmurs rubs or gallops. ABDOMINAL: Soft, nontender, nondistended, no rebound or guarding MSK: 5/5 motor strength in all extremities, no swelling in the Legs NEURO: Awake and alert. Following commands, speech normal, no focal deficits SKIN:: Warm, dry. No rashes lesions or abrasions PSYCHIATRIC: Labile mood Const: Other: Acutely ill-appearing, obese, appears stated age HENMT: Other: Dentures in upper jaw, mucous membranes are tacky, mild posterior oral pharyngeal erythema, head is normocephalic atraumatic Eyes: Other: Pupils are equal and reactive, no scleral icterus Neck: Other: No JVD, no lymphadenopathy Resp: Other: September conversational dyspnea speaking in 2 word sentences, accessory muscle use, frequent cough, bilateral wheezing Cardio: Other: Regular rate, regular rhythm, 2+ bilateral radial pedal pulses GI: Other: Distended, soft Skin: Other: No jaundice, no pallor Neuro: Other: Alert oriented x4, speech is clear, no facial asymmetry, no localizing neurologic deficits noted during the course of conversation, chronic hearing loss Extrem: Other: No cyanosis, no edema Psych: Other: Appropriate mood and affect, pleasant and cooperative, judgment and insight intact Objective Data Vital Signs Vital Signs: Vital Signs - 24 hr 03/19/25 07:53 03/19/25 07:56 03/19/25 07:56 Temperature 97.6 F Pulse Rate 85 85 Respiratory Rate 17 20 Blood Pressure 136/65 Pulse Oximetry 91 92 Oxygen Delivery Nasal Cannula Oxygen Flow Rate 2 03/19/25 08:00 03/19/25 08:08 03/19/25 13:28 Temperature 97.3 F L Pulse Rate 90 93 Respiratory Rate 20 17 Blood Pressure 142/55 H Pulse Oximetry 92 96 Oxygen Delivery Nasal Cannula Oxygen Flow Rate 2 03/19/25 13:54 03/19/25 14:00 03/19/25 16:34 Temperature Pulse Rate 96 92 88 Respiratory Rate 20 20 20 Blood Pressure Pulse Oximetry Oxygen Delivery Oxygen Flow Rate 03/19/25 16:41 03/19/25 16:52 03/19/25 19:29 Temperature 98.3 F Pulse Rate 88 83 75 Respiratory Rate 20 16 18 Blood Pressure 122/59 L Pulse Oximetry 93 Oxygen Delivery Oxygen Flow Rate 03/19/25 19:31 03/19/25 19:34 03/19/25 20:00 Temperature 97.7 F Pulse Rate 75 79 Respiratory Rate 18 20 Blood Pressure 126/53 L Pulse Oximetry 98 96 Oxygen Delivery Nasal Cannula Oxygen Flow Rate 2 03/19/25 20:00 03/19/25 20:41 03/19/25 23:58 Temperature 97.7 F 97.7 F Pulse Rate 79 85 Respiratory Rate 20 18 Blood Pressure 126/53 L 115/52 L Pulse Oximetry 96 96 94 Oxygen Delivery Nasal Cannula Oxygen Flow Rate 2 03/20/25 00:11 03/20/25 00:16 03/20/25 03:56 Temperature Pulse Rate 75 75 75 Respiratory Rate 18 18 18 Blood Pressure Pulse Oximetry Oxygen Delivery Oxygen Flow Rate 03/20/25 04:00 03/20/25 04:03 03/20/25 04:40 Temperature 97.6 F 97.6 F Pulse Rate 86 75 86 Respiratory Rate 20 18 20 Blood Pressure 126/48 L 126/48 L Pulse Oximetry 94 94 Oxygen Delivery Oxygen Flow Rate Intake/Output Intake/Output: Intake & Output 03/17/25 03/18/25 03/19/25 03/20/25 23:59 23:59 23:59 23:59 Intake Total 1220 390 Output Total 200 Balance 1020 390 Meds/Results Medications: Active Medications Generic Name Dose Route Start Last Admin Trade Name Freq PRN Reason Stop Dose Admin Albuterol/Ipratropium 3 ml 03/19/25 12:00 03/20/25 03:56 Ipratropium 0.5 Mg/Albuterol Sulfate 2.5 Mg Ampul.Neb 3 Ml INHALATION 3 ml Q4HRT ARNAV Administration Azelastine HCl 1 spray 03/19/25 09:00 03/19/25 20:38 Azelastine Hcl Nasal 0.1% 137 Mcg/Spr 30 Ml Btl NASAL 1 spray Q12HR ARNAV Administration Azithromycin 500 mg 03/19/25 09:00 03/19/25 08:17 Azithromycin 500 Mg Tablet PO 500 mg DAILY ARNAV Administration Enoxaparin Sodium 40 mg 03/20/25 09:00 Enoxaparin 40 Mg/0.4 Ml Syringe SUB-Q DAILY ARNAV Ergocalciferol 1,250 mcg 03/20/25 09:00 Ergocalciferol (Vitamin D2) 1,250 Mcg (50,000 Units) Capsule PO 04/19/25 08:59 Tu@0900 ARNAV Fluticasone Propionate 1 spray 03/19/25 09:00 03/19/25 20:38 Fluticasone Propionate 0.05% Na Spr 16 Gm Btl (*Bkc) NASAL 1 spray Q12HR ARNAV Administration Guaifenesin 1,200 mg 03/19/25 09:00 03/19/25 20:42 Guaifenesin 12 Hr 600 Mg Tabcr PO 1,200 mg Q12HR ARNAV Administration Hydrochlorothiazide 12.5 mg 03/19/25 09:00 03/19/25 08:18 Hydrochlorothiazide 12.5 Mg Capsule PO 12.5 mg QAM ARNAV Administration Losartan Potassium 50 mg 03/19/25 09:00 03/19/25 08:17 Losartan Potassium 50 Mg Tablet PO 50 mg QAM ARNAV Administration Methylprednisolone Sodium Succinate 20 mg 03/19/25 18:00 03/20/25 05:59 Methylprednisolone Sod Succ 40 Mg Vial IV PUSH 20 mg Q6HR ARNAV Administration Temazepam 7.5 mg 03/19/25 21:00 03/19/25 20:42 Temazepam (*Crx) 7.5 Mg Capsule PO 7.5 mg QHS ARNAV Administration Radiology Results: ITS Impressions Chest X-Ray 03/19/25 07:52 IMPRESSION: 1. Chronic mild ventricular atelectasis/scarring. No acute cardiopulmonary disease. Labs Labs: Laboratory Results - last 24 hr 03/19/25 03/20/25 10:29 04:55 WBC 9.6 RBC 4.92 Hgb 13.6 Hct 43.0 MCV 87.4 MCH 27.6 MCHC 31.6 L RDW 14.8 H Plt Count 149 L MPV 13.3 H Immature Gran % (Auto) 0.4 Neut % (Auto) 95.0 H Lymph % (Auto) 3.4 L Glasscock % (Auto) 1.0 L Eos % (Auto) 0.0 Baso % (Auto) 0.2 Lymph # (Auto) 0.33 L [place]cock # (Auto) 0.1 Eos # (Auto) 0.0 Baso # (Auto) 0.0 Abs Immat Gran (auto) 0.04 H Absolute Neuts (auto) 9.1 H Absolute Nucleated RBC 0.000 Nucleated RBC % 0.0 % Immature Plt Fraction 16.0 H Sodium 135 L Potassium 4.4 Chloride 103 Carbon Dioxide 25 Anion Gap 7 BUN 18 H Creatinine 0.67 L Estim Creat Clear Calc Not Reportable Estimated GFR > 60 Glucose 183 H Calcium 9.4 Total Bilirubin 0.3 AST 30 ALT 23 Alkaline Phosphatase 138 H C-Reactive Protein 1.2 H NT-Pro-B Natriuret Pep 50 Total Protein 6.7 Albumin 4.1 Procalcitonin 0.1 Quality VTE Prophylaxis VTE prophylaxis: mechanical ordered (SCDs) and pharmacologic ordered (Lovenox) Hospitalist MIPS Advance Care Plan I have confirmed that the patient's Advanced Care Plan is present, code status is documented, or surrogate decision maker is listed in patient medical record.: Yes Medication Reconciliation I have utilized all available resources to obtain, update and review the patients current medications (includes all prescriptions, OTC, herbals, cannabis, and nutritional supplements).: Yes
--- NOTE | 2025-03-20 08:41 | PM.PNPUL ---
Progress Note: A&P Assessment and Plan (1) Acute exacerbation of chronic obstructive pulmonary disease: Code(s): J44.1 - Chronic obstructive pulmonary disease with (acute) exacerbation Status: Acute Assessment and Plan: Gold grade 2 group E COPD patient with 55 pack year tobacco use, quit 2021, lifelong exposure to secondhand tobacco use, PFTs 07/29/2017: FEV1 58% of predicted. Decreased maximal expiratory airflow at all lung volumes with a concave expiratory flow tracing. The FEV1: FVC ratio is 58%. Hyperinflation. The absolute diffusion capacity is 8.0, 42% predicted. The diffusion capacity corrected for alveolar volume is 2.72, 75% predicted. CT scan of the chest on 05/01/2024 with mild apical predominant centrilobular emphysema. patient using 2 L nasal cannula at night and p.r.n. during the day. ABG 01/18/2025 on room air 7.36/41/63. Echocardiogram 10/21/2024 with LVEF greater than 70%, grade 1 diastolic dysfunction, normal right ventricular size and function. Normal right atrial size, PASP 25. Maintained on home trelegy 100, prescribed azithromycin 250 3 times week but noncompliant and rescue albuterol. she continues to smoke and has had 5 exacerbations in the last 6 months. Today the patient tells me she never really got better after her illness on 02/22/2025 and is been the slow day by day worsening in her respiratory symptoms since then. Over the last 3-4 days she developed which she describes as a bad cold with a dry cough, sneezing, rhinorrhea, sinus congestion and worsening shortness of breath. She denies fever, chills, rigors. The patient tells me she has not been taking her azithromycin 3 times a week and has not been taking her Claritin. The patient tells me she is still smoking 3-20 cigarettes a day and she is tearful when she describes this habit. she tells me she is using 2 L at night and p.r.n. oxygen during the day Patient presented to the emergency department on 03/18/2025 with a blood pressure 124/78, heart rate 98, room air saturations 93%. She had inspiratory and expiratory wheezes. Her white blood cell count was 8.3, her creatinine was 0.8, eosinophils were 2.3% with a total eosinophil count of 193 per micro L. Chest x-ray showed no disease. Her weight was 64.6 kg. She was treated for COPD exacerbation with Solu-Medrol, DuoNebs and azithromycin 500 p.o.. 03/19/2025: I will treat the patient for COPD exacerbation. Overall the patient feels better. Her dry cough is resolved, she has no wheezing. She is afebrile. Procalcitonin 0.1. Currently she is on 2 L nasal cannula saturations 92%. Plan: Patient is improved and is no longer wheezing. I will decrease her Solu-Medrol from 60 q.6 to 20 q.6. continue azithromycin 500 mg p.o. q.day, day 2. Continue a DuoNebs q.4 hours. Continue guaifenesin 1200 q.12 hours. Since she is on maximum dose bronchodilators and high-dose systemic steroids I will discontinue her trelegy. Her sinuses are controlled and will continue her home Flonase 1 spray each nostril q.12 hours and Astelin 1 spray each nostril q.12 hours. Regarding etiologies of her COPD exacerbation I will send an respiratory pathogen panel, serum mycoplasma IgM, urine Legionella antigen and urine pneumococcal antigen. I will check a BNP and a CRP. Smoking cessation counseling was discussed. 03/20/2025: The patient tells me she feels a lot better. She has some rest shortness of breath and dyspnea on exertion walking across the room. Overall her cough is better than normal with no phlegm and no hemoptysis. She has no wheezing. When I enter the room she is on 2 L nasal cannula saturations 97% and I decreased her to room air and after a 11 minutes her saturations were 92%. White blood cell count 9.6, creatinine 0.67, BNP yesterday was 50, procalcitonin 0.1, CRP 1.2. Yesterday she was positive 1 L and cumulative she is positive 1.4 L since admission. Her weight today is 65 kg. Plan: Patient improved and I will discontinue her Solu-Medrol today and place her on prednisone 40 q.day. I will continue her DuoNebs q.6, and guaifenesin 1200 p.o. b.i.d. Her sinuses are improved on Flonase 1 spray each nostril twice a day and Astelin 1 spray each nostril twice a day. Goal saturation 90-94%, currently she is on room air. I will perform an overnight oximetry on 2 L tonight to assess for nocturnal hypoxia. If patient continues to improve will consider discharge on 03/21/2025. Will follow with you. (2) History of tobacco use: Code(s): Z87.891 - Personal history of nicotine dependence Status: Acute Assessment and Plan: The patient is a current smoker and smoked the day of admission. She did quit for 3 weeks in October of 2024 but relapsed because of stress. The patient understands that the cigarettes or actively killing her and she cries when she talks about her addiction. She has tried nicotine gum and lozenges in the past but these were unsuccessful. Plan: Patient does wish to quit. Patient states she is willing to try Chantix in the future. 03/20/2025: The patient does wish to quit. Plan. The patient wishes to be placed on Chantix on discharge. Subjective Date/time seen: 03/20/25 08:41 Interval history: 03/19/2025: This is a new pulmonary consult for COPD exacerbation. 80-year-old with a history of hypertension, GERD, anxiety, COPD on supplemental oxygen. Patient is followed in the [facility] in last seen on 09/20/2024: This is the note. COPD Last visit 09/2023 Abigail is a pleasant 79yo F here for follow up regarding COPD on oxygen. 08/2023 ER visit for COPD exacerbation. 08/19/24 UC visit for COPD exacerbation. COVID/flu/RSV negative. Rx Augmentin and was prescribed prednisone the day prior by myselfCOPD: Today she tells me she's had increased SOB and coughing over the last month. Has been back to smoking close to 1ppd lately and cold weather has affected her breathing. SOB worse. Chronic productive coughing of white sputum. No hemoptysis. She reports wheezing. Feels like she needs another round of prednisone. Longstanding sinus issues, had sinus surgery in the past. Follows with Dr Gaitan but hard for her to get to his [place] [facility] she says. Using Flonase + azelastine nasal sprays once daily and needs refills. She is using Trelegy 100 1 puff once daily; albuterol HFA and nebulizer PRN. Albuterol HFA use varies - 1-3x daily. Using albuterol nebulizer 2-3x per day currently. She bought portable nebulizer from [facility] which is nice to keep with her. O2: Per 10/2022 testing she was using 2L/min O2 with ambulation during the day. We repeated home O2 eval 09/2023 with intentions of trying to get her POC but she didn't require supplemental O2 on that testing. She has not been using O2 during the day lately. Checking her O2 saturations at home and states they've stayed in the 90s% even when she doesn't feel well. She was using O2 with sleep but felt like 1L/min was too much. She's done without O2 at night recently and started having morning headaches a few days ago. Tobacco: Current smoker, 55 pack year history of tobacco use, quit in 2016 now back to smoking less than 1ppd currently. Plan: Currently with an exacerbation (09/20/24) and given a 12 day steroid taper. Continue trelegy 100, rescue albuterol, start azithromycin 250 3 times a week, Flonase, Astelin 1 spray each nostril twice a day, follow-up with ENT. No oxygen at rest or with activity per last testing on 10/13/2023, prescribed 2 L at night based on overnight oximetry July of 2021 but can not tolerate this and was on no oxygen at night. I encouraged her to try 0.5 L at night. Aged out of low-dose CT scan. 10/20/2024 through 10/23/2024: admitted to [facility] for COPD exacerbation, COVID RT PCR positive, hypercarbic respiratory failure with venous blood gas 7.26/75/ less than 27. Patient placed on BiPAP 06/29 with repeat gas 4 hours later 7.34/46/77. Discharged on Augmentin and prednisone. I called the patient on 10/30/2024 and she improved until 10/28/2024 and then developed shortness of breath, dyspnea on exertion and cough with phlegm that has turned green today. I treated with Augmentin x7 days, prednisone x5 days, increase her Flonase and Astelin to 2 sprays each nostril twice a day, continue trilogy, azithromycin 3 times a week, Claritin 10 a day and Mucinex 600 b.i.d.. She was still smoking 6-7 cigarettes a day and I told her the cigarettes were killing her. she would by stronger nicotine patches. 11/07/2024: I called the patient and she said she was definitely better but still had dyspnea on exertion. Her sinus congestion was better. She tried the nicotine patches but this did not help her but she has been able to quit herself. 01/18/2025: ED visit for shortness of breath, dyspnea on exertion, coughing, wheezing states she smokes cigarettes. Bilateral wheezes. ABG on room air 7.36. improved with Steroids, bronchodilators and discharged on prednisone and Levaquin. 02/22/2025: PCP office visit note. Symptoms worse after cleaning cong room earlier this week. Lungs with rhonchi and wheezing. Room air sats 91%. Not in respiratory distress. Repeat prednisone taper and Z-Andrews. Today the patient tells me she never really got better after her illness on 02/22/2025 and is been the slow day by day worsening in her respiratory symptoms since then. Over the last 3-4 days she developed which she describes as a bad cold with a dry cough, sneezing, rhinorrhea, sinus congestion and worsening shortness of breath. She denies fever, chills, rigors. The patient tells me she has not been taking her azithromycin 3 times a week and has not been taking her Claritin. The patient tells me she is still smoking 3-20 cigarettes a day and she is tearful when she describes this habit. she tells me she is using 2 L at night and p.r.n. oxygen during the day Patient presented to the emergency department on 03/18/2025 with a blood pressure 124/78, heart rate 98, room air saturations 93%. She had inspiratory and expiratory wheezes. Her white blood cell count was 8.3, her creatinine was 0.8, eosinophils were 2.3% with a total eosinophil count of 193 per micro L. Chest x-ray showed no disease. Her weight was 64.6 kg. She was treated for COPD exacerbation with Solu-Medrol, DuoNebs and azithromycin 500 p.o.. 03/19/2025: Overall the patient feels better. Her dry cough is resolved, she has no wheezing. She is afebrile. Currently she is on 2 L nasal cannula saturations 92%. 03/20/2025: The patient tells me she feels a lot better. She has some rest shortness of breath and dyspnea on exertion walking across the room. Overall her cough is better than normal with no phlegm and no hemoptysis. She has no wheezing. When I enter the room she is on 2 L nasal cannula saturations 97% and I decreased her to room air and after a 11 minutes her saturations were 92%. White blood cell count 9.6, creatinine 0.67 yesterday she was positive 1 L and cumulative she is positive 1.4 L since admission. Her weight today is 65 kg. DATA: 10/21/2024: Summary 1. Complete two-dimensional, color flow and Doppler transthoracic echocardiogram is performed. 2. Left ventricular chamber dimension is normal. 3. Left ventricular systolic function is hyperdynamic, estimated at >70%. 4. There is mildly increased left ventricular wall thickness. 5. The left ventricular diastolic function is grade I diastolic dysfunction. 6. Left atrial chamber dimension is mildly enlarged. 7. There is mild tricuspid valve regurgitation. Right Ventricle Right ventricular chamber dimension is normal. Right ventricular systolic function is normal. Right Atria Right atrial chamber dimension is normal. Atrial Septum Intact interatrial septum visualized by color flow imaging. RVSP 25. 08/19/24 - CXR - Calcified nodule at the basilar left lower lobe calcified left hilar lymph nodes consistent with sequela of old granulomatous disease. No other airspace opacities, pulmonary edema, pleural effusion or pneumothorax. Heart size is normal. Impression: No acute cardiopulmonary disease. 10/13/23 - Home O2 eval - Patient did not require supplemental oxygen at rest or with ambulation. 04/21/23 - LDCT - There are scattered bilateral nodules throughout both lungs measuring 3mm or less. There is emphysema. No focal airspace consolidation. 11/13/22 - Home O2 eval - Patient required 2L/min O2 with ambulation and none at rest. 04/20/22 - LDCT - Stable small bilateral pulmonary nodules measuring 3mm or less. No new pulmonary nodules or masses. 08/05/2021 - Overnight oximetry performed on 1L/min O2 with sleep. Data recorded for 7.5 hours. Patient spent 57 minutes below 88% O2 saturation with 13 minutes consecutively less than 88%. Oxygen desaturation index 23. Patient was instructed to wear 2L/min O2 at night with sleep and overnight oximetry was repeated on 2L/min. 08/08/21 - Overnight oximetry on 2L/min with sleep - 8 min spent below 88% saturation, all at the very beginning of the study, after which oxygen saturation consistent remained above 90%. NILAY 9. 04/18/21 - LDCT - Emphysema. Scattered nodules 3mm or less in both lungs without significant change compared to 04/2020. Lung-RADS category 2: Continue annual screening with LDCT in 12 months. 10/04/20 - Overnight oximetry on room air - Low saturation 70%, high saturation 99%, average 90%; time with saturation at 88% or below was 42.4 minutes. She was prescribed 1L/min O2 at night. 10/10/20 - Home O2 assessment - Required no oxygen at rest, 2L with activity. 07/29/2017 - PFT - FEV1 58% of predicted. Decreased maximal expiratory airflow at all lung volumes with a concave expiratory flow tracing. The FEV1: FVC ratio is 58%. The absolute diffusion capacity is 8.0, 42% predicted. The diffusion capacity corrected for alveolar volume is 2.72, 75% predicted. 04/29/2020 - CTA chest - mild apical centrilobular and paraseptal emphysema. Mild left lingula and lower lobe atelectasis chronic less than 3 mm noncalcified pulmonary nodules unchanged since 09/28/2017. Calcified OGT. No PE. 05/22/2019- Echo - with normal LV systolic function 65-70%. Grade 1 diastolic dysfunction. There is trace tricuspid regurg with an estimated pulmonary arterial systolic pressure of 40. Review of Systems Constitutional: Constitutional: Reports no additional constitutional complaints Eyes: Eyes: Reports no additional eye complaints ENT: Reports system reviewed and no additional complaints, except as documented Cardiovascular: Cardiovascular: Reports no additional cardiovascular complaints Respiratory: Respiratory: Reports no additional respiratory complaints Gastrointestinal: Gastrointestinal: Reports no additional gastrointestinal complaints Musculoskeletal: Musculoskeletal: Reports no additional musculoskeletal complaints Neurologic: Reports system reviewed and no additional complaints, except as documented Psychiatric: Psychiatric: Reports no additional psychiatric complaints Endocrine: Endocrine: Reports no additional endocrine complaints Hematologic/Lymphatic: Hematologic/Lymphatic: Reports no additional hematologic/lymphatic complaints Allergic/Immunologic: Allergic/Immunologic: Reports no additional allergic/immunologic complaints Exam Const: General: cooperative, healthy appearing and comfortable Orientation/consciousness: oriented to person, oriented to place and oriented to time HENMT: Head: normal to inspection Ears: hearing grossly normal bilaterally Eyes: General: appearance normal, both eyes and all related structures Neck: Neck: normal visual inspection Chest: Chest palpation & inspection: normal inspection of the chest Resp: Effort & Inspection: normal respiratory effort and able to speak in complete sentences Auscultation: no crackles, no rales, no rhonchi, no wheezes and diminished lung sounds Cardio: Jugular venous distension: no JVD GI: Inspection: normal to inspection Skin: General skin exam: normal color Neuro: General: oriented to person, oriented to place and oriented to time Extrem: General: normal to inspection Psych: Appearance: grossly normal Objective Data Vital Signs Vital Signs: Vital Signs - 24 hr 03/19/25 13:28 03/19/25 13:54 03/19/25 14:00 Temperature 36.3 C L Pulse Rate 93 96 92 Respiratory Rate 17 20 20 Blood Pressure 142/55 H Pulse Oximetry 96 Oxygen Delivery Oxygen Flow Rate 03/19/25 16:34 03/19/25 16:41 03/19/25 16:52 Temperature 36.8 C Pulse Rate 88 88 83 Respiratory Rate 20 20 16 Blood Pressure 122/59 L Pulse Oximetry 93 Oxygen Delivery Oxygen Flow Rate 03/19/25 19:29 03/19/25 19:31 03/19/25 19:34 Temperature Pulse Rate 75 75 Respiratory Rate 18 18 Blood Pressure Pulse Oximetry 98 Oxygen Delivery Nasal Cannula Oxygen Flow Rate 2 03/19/25 20:00 03/19/25 20:00 03/19/25 20:41 Temperature 36.5 C 36.5 C Pulse Rate 79 79 Respiratory Rate 20 20 Blood Pressure 126/53 L 126/53 L Pulse Oximetry 96 96 96 Oxygen Delivery Nasal Cannula Oxygen Flow Rate 2 03/19/25 23:58 03/20/25 00:11 03/20/25 00:16 Temperature 36.5 C Pulse Rate 85 75 75 Respiratory Rate 18 18 18 Blood Pressure 115/52 L Pulse Oximetry 94 Oxygen Delivery Oxygen Flow Rate 03/20/25 03:56 03/20/25 04:00 03/20/25 04:03 Temperature 36.4 C Pulse Rate 75 86 75 Respiratory Rate 18 20 18 Blood Pressure 126/48 L Pulse Oximetry 94 Oxygen Delivery Oxygen Flow Rate 03/20/25 04:40 03/20/25 08:15 03/20/25 08:15 Temperature 36.4 C Pulse Rate 86 89 89 Respiratory Rate 20 20 20 Blood Pressure 126/48 L Pulse Oximetry 94 91 Oxygen Delivery Room Air Oxygen Flow Rate 03/20/25 08:24 Temperature Pulse Rate 96 Respiratory Rate 20 Blood Pressure Pulse Oximetry Oxygen Delivery Oxygen Flow Rate Intake/Output Intake/Output: Intake & Output 03/17/25 03/18/25 03/19/25 03/20/25 23:59 23:59 23:59 23:59 Intake Total 1220 390 Output Total 200 Balance 1020 390 Meds/Results Medications: Active Medications Generic Name Dose Route Start Last Admin Trade Name Freq PRN Reason Stop Dose Admin Albuterol/Ipratropium 3 ml 03/19/25 12:00 03/20/25 08:15 Ipratropium 0.5 Mg/Albuterol Sulfate 2.5 Mg Ampul.Neb 3 Ml INHALATION 3 ml Q4HRT ARNAV Administration Azelastine HCl 1 spray 03/19/25 09:00 03/19/25 20:38 Azelastine Hcl Nasal 0.1% 137 Mcg/Spr 30 Ml Btl NASAL 1 spray Q12HR ARNAV Administration Azithromycin 500 mg 03/19/25 09:00 03/19/25 08:17 Azithromycin 500 Mg Tablet PO 500 mg DAILY ARNAV Administration Enoxaparin Sodium 40 mg 03/20/25 09:00 Enoxaparin 40 Mg/0.4 Ml Syringe SUB-Q DAILY [facility] Ergocalciferol 1,250 mcg 03/20/25 09:00 Ergocalciferol (Vitamin D2) 1,250 Mcg (50,000 Units) Capsule PO 04/19/25 08:59 Tu@0900 ARNAV Fluticasone Propionate 1 spray 03/19/25 09:00 03/19/25 20:38 Fluticasone Propionate 0.05% Na Spr 16 Gm Btl (*Bkc) NASAL 1 spray Q12HR ARNAV Administration Guaifenesin 1,200 mg 03/19/25 09:00 03/19/25 20:42 Guaifenesin 12 Hr 600 Mg Tabcr PO 1,200 mg Q12HR ARNAV Administration Hydrochlorothiazide 12.5 mg 03/19/25 09:00 03/19/25 08:18 Hydrochlorothiazide 12.5 Mg Capsule PO 12.5 mg QAM ARNAV Administration Losartan Potassium 50 mg 03/19/25 09:00 03/19/25 08:17 Losartan Potassium 50 Mg Tablet PO 50 mg QAM ARNAV Administration Methylprednisolone Sodium Succinate 20 mg 03/19/25 18:00 03/20/25 05:59 Methylprednisolone Sod Succ 40 Mg Vial IV PUSH 20 mg Q6HR ARNAV Administration Temazepam 7.5 mg 03/19/25 21:00 03/19/25 20:42 Temazepam (*Crx) 7.5 Mg Capsule PO 7.5 mg QHS ARNAV Administration Radiology Results: ITS Impressions Chest X-Ray 03/19/25 07:52 IMPRESSION: 1. Chronic mild ventricular atelectasis/scarring. No acute cardiopulmonary disease. Labs Labs: Laboratory Results - last 24 hr 03/19/25 03/20/25 10:29 04:55 WBC 9.6 RBC 4.92 Hgb 13.6 Hct 43.0 MCV 87.4 MCH 27.6 MCHC 31.6 L RDW 14.8 H Plt Count 149 L MPV 13.3 H Immature Gran % (Auto) 0.4 Neut % (Auto) 95.0 H Lymph % (Auto) 3.4 L [place] % (Auto) 1.0 L Eos % (Auto) 0.0 Baso % (Auto) 0.2 Lymph # (Auto) 0.33 L [place] # (Auto) 0.1 Eos # (Auto) 0.0 Baso # (Auto) 0.0 Abs Immat Gran (auto) 0.04 H Absolute Neuts (auto) 9.1 H Absolute Nucleated RBC 0.000 Nucleated RBC % 0.0 % Immature Plt Fraction 16.0 H Sodium 135 L Potassium 4.4 Chloride 103 Carbon Dioxide 25 Anion Gap 7 BUN 18 H Creatinine 0.67 L Estim Creat Clear Calc Not Reportable Estimated GFR > 60 Glucose 183 H Calcium 9.4 Total Bilirubin 0.3 AST 30 ALT 23 Alkaline Phosphatase 138 H C-Reactive Protein 1.2 H NT-Pro-B Natriuret Pep 50 Total Protein 6.7 Albumin 4.1 Procalcitonin 0.1
[2025-03-20] MEDS: ERGOCALCIFEROL (VITAMIN D2) 1,250 MCG (50,000 UNITS) CAPSULE 1250 MCG PO (09:49)
[2025-03-20] MEDS: guaiFENesin 12 HR 600 MG TABCR 1200 MG PO ×2 (09:49→21:01)
[2025-03-20] MEDS: ENOXAPARIN 40 MG/0.4 ML SYRINGE SUB-Q (09:49)
[2025-03-20] MEDS: FLUTICASONE PROPIONATE 0.05% NA SPR 16 GM BTL (*BKC) 1 SPRAY NASAL ×2 (09:50→21:02)
[2025-03-20] MEDS: AZELASTINE HCL NASAL 0.1% 137 MCG/SPR 30 ML BTL 1 SPRAY NASAL ×2 (09:50→21:02)
[2025-03-20] MEDS: LOSARTAN POTASSIUM 50 MG TABLET PO (09:50)
[2025-03-20] MEDS: AZITHROMYCIN 500 MG TABLET PO (09:51)
[2025-03-20] MEDS: TEMAZEPAM (*CRX) 7.5 MG CAPSULE PO (22:53)
[2025-03-21] VITALS (12 sets, daily range): BP systolic 117–122; BP diastolic 62; PULSE 74–128; RESP 14–24; TEMP 36.4–37; O2SAT 88–96
--- NOTE | 2025-03-21 04:24 | PCRCNOTE ---
0000 neb tx was omitted due to oximetry study
[2025-03-21] MEDS: IPRATROPIUM 0.5 MG/ALBUTEROL SULFATE 2.5 MG AMPUL.NEB 3 ML INHALATION ×3 (05:29→11:59)
[2025-03-21 06:43] LABS: Hematocrit 43.0 % (37.0-47.0); Hemoglobin 13.5 g/dL (12.0-15.0); Immature Granulocyte Percent A 0.3 % (0-0.5); Immature Platelet Fraction Pct 16.8 % (0.9-11.2); Lymphocytes Absolute Auto 1.80 K/mm3 (0.9-3.2); Mean Corpuscular HGB Conc 31.4 g/dl (32-36); Mean Corpuscular Hemoglobin 27.7 pg (26-34); Mean Corpuscular Volume 88.3 fl (80-100); Nucleated Red Blood Cells Absolute Auto 0.000 K/mm3 (0.0-0.012); Nucleated Red Blood Cells Perc 0.0 % (0.0-0.2); Platelet Count Result 140 k/mm3 (150-375); Red Blood Count 4.87 M/mm3 (4.2-5.4); White Blood Count 8.6 K/mm3 (4.5-10.0)
[2025-03-21 07:15] LABS: Alanine Aminotransferase 20 U/L (6-35); Albumin Level 3.7 g/dL (3.5-5.1); Alkaline Phosphatase 121 U/L (38-126); Anion Gap 4 mmol/L (4-12); Aspartate Amino Transferase 24 U/L (14-36); Bilirubin,Total 0.3 mg/dL (0.2-1.3); Blood Urea Nitrogen 20 mg/dL (7-17); Calcium 9.2 mg/dL (8.4-10.2); Carbon Dioxide 30 mmol/L (22-30); Chloride 101 mmol/L (98-107); Estimated Glomerular Filt Rate > 60; Glucose 92 mg/dL (65-110); Potassium 3.9 mmol/L (3.4-5.0); Sodium 135 mmol/L (137-145); Total Protein 6.3 g/dL (6.3-8.2)
--- NOTE | 2025-03-21 08:31 | P.PNPL_ITS ---
Progress Note: A&P Assessment and Plan (1) Acute exacerbation of chronic obstructive pulmonary disease: Code(s): J44.1 - Chronic obstructive pulmonary disease with (acute) exacerbation Status: Acute Assessment and Plan: Gold grade 2 group E COPD patient with 55 pack year tobacco use, quit 2021, lifelong exposure to secondhand tobacco use, PFTs 07/29/2017: FEV1 58% of predicted. Decreased maximal expiratory airflow at all lung volumes with a concave expiratory flow tracing. The FEV1: FVC ratio is 58%. Hyperinflation. The absolute diffusion capacity is 8.0, 42% predicted. The diffusion capacity corrected for alveolar volume is 2.72, 75% predicted. CT scan of the chest on 05/01/2024 with mild apical predominant centrilobular emphysema. patient using 2 L nasal cannula at night and p.r.n. during the day. ABG 01/18/2025 on room air 7.36/41/63. Echocardiogram 10/21/2024 with LVEF greater than 70%, grade 1 diastolic dysfunction, normal right ventricular size and function. Normal right atrial size, PASP 25. Maintained on home trelegy 100, prescribed azithromycin 250 3 times week but noncompliant and rescue albuterol. she continues to smoke and has had 5 exacerbations in the last 6 months. Today the patient tells me she never really got better after her illness on 02/22/2025 and is been the slow day by day worsening in her respiratory symptoms since then. Over the last 3-4 days she developed which she describes as a bad cold with a dry cough, sneezing, rhinorrhea, sinus congestion and worsening shortness of breath. She denies fever, chills, rigors. The patient tells me she has not been taking her azithromycin 3 times a week and has not been taking her Claritin. The patient tells me she is still smoking 3-20 cigarettes a day and she is tearful when she describes this habit. she tells me she is using 2 L at night and p.r.n. oxygen during the day Patient presented to the emergency department on 03/18/2025 with a blood pressure 124/78, heart rate 98, room air saturations 93%. She had inspiratory and expiratory wheezes. Her white blood cell count was 8.3, her creatinine was 0.8, eosinophils were 2.3% with a total eosinophil count of 193 per micro L. Chest x-ray showed no disease. Her weight was 64.6 kg. She was treated for COPD exacerbation with Solu-Medrol, DuoNebs and azithromycin 500 p.o.. 03/19/2025: I will treat the patient for COPD exacerbation. Overall the patient feels better. Her dry cough is resolved, she has no wheezing. She is afebrile. Procalcitonin 0.1. Currently she is on 2 L nasal cannula satu rations 92%. Plan: Patient is improved and is no longer wheezing. I will decrease her Solu-Medrol from 60 q.6 to 20 q.6. continue azithromycin 500 mg p.o. q.day, day 2. Continue a DuoNebs q.4 hours. Continue guaifenesin 1200 q.12 hours. Since she is on maximum dose bronchodilators and high-dose systemic steroids I will discontinue her trelegy. Her sinuses are controlled and will continue her home Flonase 1 spray each nostril q.12 hours and Astelin 1 spray each nostril q.12 hours. Regarding etiologies of her COPD exacerbation I will send an respiratory pathogen panel, serum mycoplasma IgM, urine Legionella antigen and urine pneumococcal antigen. I will check a BNP and a CRP. Smoking cessation counseling was discussed. 03/20/2025: The patient tells me she feels a lot better. She has some rest shortness of breath and dyspnea on exertion walking across the room. Overall her cough is better than normal with no phlegm and no hemoptysis. She has no wheezing. When I enter the room she is on 2 L nasal cannula saturations 97% and I decreased her to room air and after a 11 minutes her saturations were 92%. White blood cell count 9.6, creatinine 0.67, BNP yesterday was 50, procalcitonin 0.1, CRP 1.2. Yesterday she was positive 1 L and cumulative she is positive 1.4 L since admission. Her weight today is 65 kg. Plan: Patient improved and I will discontinue her Solu-Medrol today and place her on prednisone 40 q.day. I will continue her DuoNebs q.6, and guaifenesin 1200 p.o. b.i.d. Her sinuses are improved on Flonase 1 spray each nostril twice a day and Astelin 1 spray each nostril twice a day. Goal saturation 90-94%, currently she is on room air. I will perform an overnight oximetry on 2 L tonight to assess for nocturnal hypoxia. If patient continues to improve will consider discharge on 03/21/2025. 03/21/2025: The patient tells me she is breathing back to her normal. She tells me she is breathing better today than she has in the last 3 months. Her cough is better than her baseline and she has no phlegm and no hemoptysis. she has some rest shortness of breath and some dyspnea on exertion walking to the bathroom. Currently she is on room air with saturations 92%. She is afebrile. White blood cell count 8.6, creatinine 0.75, yesterday she was positive 1.3 L, cumulative she is positive 2.8 L since admission. Patient had an overnight oximetry ordered on 2 L. The 1st few hours of the study was on room air and then she was placed on 2 L. Recording duration 6 hours and 53 minutes, average saturation 94%. Low saturation 85%. Time with saturation less than or equal to 88% was 1 minute. Oxygen desaturation index 1.1. From a pulmonary perspective patient can be discharged on these pulmonary medications: Prednisone 40 mg p.o. q.day x1 day Azithromycin 250 mg p.o. q.day x2 days Trilogy 100-60 2.5-25 at 1 puff q.day Rescue albuterol 2 puffs q.4 hours p.r.n. shortness of breath or wheezing Guaifenesin 600 mg p.o. b.i.d. p.r.n. congestion Flonase 1 spray each nostril b.i.d. Astelin 1 spray each nostril b.i.d. Oxygen per formal home O2 assessment which I have ordered. Oxygen at night at 2 L. Chantix starter pack ( 0.5 mg once a day x3 days, 0.5 mg twice a day times 4 days then 1 mg twice a day) Follow-up in the Pulmonary Clinic on her previously scheduled appointment on 03/27/2025 at 9:30. Discussed with Dr. Mchugh, will sign off, call with questions (2) History of tobacco use: Code(s): Z87.891 - Personal history of nicotine dependence Status: Acute Assessment and Plan: The patient is a current smoker and smoked the day of admission. She did quit for 3 weeks in October of 2024 but relapsed because of stress. The patient understands that the cigarettes or actively killing her and she cries when she talks about her addiction. She has tried nicotine gum and lozenges in the past but these were unsuccessful. Plan: Patient does wish to quit. Patient states she is willing to try Chantix in the future. 03/20/2025: The patient does wish to quit. Plan. The patient wishes to be placed on Chantix on discharge. 03/21/25: We talked extensively about tobacco cessation. The patient understands that cigarettes or killing her and wants to quit. She has a strong desire to quit as she does not want to get as sick as she was when she presented to the emergency room this admission. She appears sincere. I reinforced the cigarettes are killing her, the addiction is strong and she will need to work very hard at quitting. She is interested in Chantix. Plan: Will prescribe Chantix starter pack on discharge. patient has staged out of the yearly low-dose CT scan screening protocol. LDCT on 05/02/2024 with lung RADS 2. Subjective Date/time seen: 03/21/25 08:31 Interval history: 03/19/2025: This is a new pulmonary consult for COPD exacerbation. 80-year-old with a history of hypertension, GERD, anxiety, COPD on supplemental oxygen. Patient is followed in the Pulmonary Clinic in last seen on 09/20/2024: This is the note. COPD Last visit 09/2023 Abigail is a pleasant 79yo F here for follow up regarding COPD on oxygen. * 08/2023 ER visit for COPD exacerbation. * 08/19/24 UC visit for COPD exacerbation. COVID/flu/RSV negative. Rx Augmentin and was prescribed prednisone the day prior by myselfCOPD: Today she tells me she's had increased SOB and coughing over the last month. Has been back to smoking close to 1ppd lately and cold weather has affected her breathing. SOB worse. Chronic productive coughing of white sputum. No hemoptysis. She reports wheezing. Feels like she needs another round of prednisone. Longstanding sinus issues, had sinus surgery in the past. Follows with Dr Gaitan but hard for her to get to [facility] she says. Using Flonase + azelastine nasal sprays once daily and needs refills. She is using Trelegy 100 1 puff once daily; albuterol HFA and nebulizer PRN. Albuterol HFA use varies - 1-3x daily. Using albuterol nebulizer 2-3x per day currently. She bought portable nebulizer from [employer] which is nice to keep with her. O2: Per 10/2022 testing she was using 2L/min O2 with ambulation during the day. We repeated home O2 eval 09/2023 with intentions of trying to get her POC but she didn't require supplemental O2 on that testing. She has not been using O2 during the day lately. Checking her O2 saturations at home and states they've stayed in the 90s% even when she doesn't feel well. She was using O2 with sleep but felt like 1L/min was too much. She's done without O2 at night recently and started having morning headaches a few days ago. Tobacco: Current smoker, 55 pack year history of tobacco use, quit in 2016 now back to smoking less than 1ppd currently. Plan: Currently with an exacerbation (09/20/24) and given a 12 day steroid taper. Continue trelegy 100, rescue albuterol, start azithromycin 250 3 times a week, Flonase, Astelin 1 spray each nostril twice a day, follow-up with ENT. No oxygen at rest or with activity per last testing on 10/13/2023, prescribed 2 L at night based on overnight oximetry July of 2021 but can not tolerate this and was on no oxygen at night. I encouraged her to try 0.5 L at night. Aged out of low-dose CT scan. 10/20/2024 through 10/23/2024: admitted to [facility] for COPD exacerbation, COVID RT PCR positive, hypercarbic respiratory failure with venous blood gas 7.26/75/ less than 27. Patient placed on BiPAP 12/ with repeat gas 4 hours later 7.34/46/77. Discharged on Augmentin and prednisone. I called the patient on 10/30/2024 and she improved until 10/28/2024 and then developed shortness of breath, dyspnea on exertion and cough with phlegm that has turned green today. I treated with Augmentin x7 days, prednisone x5 days, increase her Flonase and Astelin to 2 sprays each nostril twice a day, continue trilogy, azithromycin 3 times a week, Claritin 10 a day and Mucinex 600 b.i.d.. She was still smoking 6-7 cigarettes a day and I told her the cigarettes were killing her. she would by stronger nicotine patches. 11/07/2024: I called the patient and she said she was definitely better but still had dyspnea on exertion. Her sinus congestion was better. She tried the nicotine patches but this did not help her but she has been able to quit herself. 01/18/2025: ED visit for shortness of breath, dyspnea on exertion, coughing, wheezing states she smokes cigarettes. Bilateral wheezes. ABG on room air 7.36/41/63. improved with Steroids, bronchodilators and discharged on prednisone and Levaquin. 02/22/2025: PCP office visit note. Symptoms worse after cleaning cong room earlier this week. Lungs with rhonchi and wheezing. Room air sats 91%. Not in respiratory distress. Repeat prednisone taper and Z-Andrews. Today the patient tells me she never really got better after her illness on 02/22/2025 and is been the slow day by day worsening in her respiratory symptoms since then. Over the last 3-4 days she developed which she describes as a bad cold with a dry cough, sneezing, rhinorrhea, sinus congestion and worsening shortness of breath. She denies fever, chills, rigors. The patient tells me she has not been taking her azithromycin 3 times a week and has not been taking her Claritin. The patient tells me she is still smoking 3-20 cigarettes a day and she is tearful when she describes this habit. she tells me she is using 2 L at night and p.r.n. oxygen during the day Patient presented to the emergency department on 03/18/2025 with a blood pressure 124/78, heart rate 98, room air saturations 93%. She had inspiratory and expiratory wheezes. Her white blood cell count was 8.3, her creatinine was 0.8, eosinophils were 2.3% with a total eosinophil count of 193 per micro L. Chest x-ray showed no disease. Her weight was 64.6 kg. She was treated for COPD exacerbation with Solu-Medrol, DuoNebs and azithromycin 500 p.o.. 03/19/2025: Overall the patient feels better. Her dry cough is resolved, she has no wheezing. She is afebrile. Currently she is on 2 L nasal cannula saturations 92%. 03/20/2025: The patient tells me she feels a lot better. She has some rest shortness of breath and dyspnea on exertion walking across the room. Overall her cough is better than normal with no phlegm and no hemoptysis. She has no wheezing. When I enter the room she is on 2 L nasal cannula saturations 97% and I decreased her to room air and after a 11 minutes her saturations were 92%. White blood cell count 9.6, creatinine 0.67 yesterday she was positive 1 L and cumulative she is positive 1.4 L since admission. Her weight today is 65 kg. 03/21/2025: The patient tells me she is breathing back to her normal. She tells me she is breathing better today than she has in the last 3 months. Her cough is better than her baseline and she has no phlegm and no hemoptysis. she has some rest shortness of breath and some dyspnea on exertion walking to the bathroom. Currently she is on room air with saturations 92%. She is afebrile. White blood cell count 8.6, creatinine 0.75, yesterday she was positive 1.3 L, cumulative she is positive 2.8 L since admission. Patient had an overnight oximetry ordered on 2 L. The 1st few hours of the study was on room air and then she was placed on 2 L. Recording duration 6 hours and 53 minutes, average saturation 94%. Low saturation 85%. Time with saturation less than or equal to 88% was 1 minute. Oxygen desaturation index 1.1. DATA: 10/21/2024: Summary 1. Complete two-dimensional, color flow and Doppler transthoracic echocardiogram is performed. 2. Left ventricular chamber dimension is normal. 3. Left ventricular systolic function is hyperdynamic, estimated at >70%. 4. There is mildly increased left ventricular wall thickness. 5. The left ventricular diastolic function is grade I diastolic dysfunction. 6. Left atrial chamber dimension is mildly enlarged. 7. There is mild tricuspid valve regurgitation. Right Ventricle Right ventricular chamber dimension is normal. Right ventricular systolic function is normal. Right Atria Right atrial chamber dimension is normal. Atrial Septum Intact interatrial septum visualized by color flow imaging. RVSP 25. * 08/19/24 - CXR - Calcified nodule at the basilar left lower lobe calcified left hilar lymph nodes consistent with sequela of old granulomatous disease. No other airspace opacities, pulmonary edema, pleural effusion or pneumothorax. Heart size is normal. Impression: No acute cardiopulmonary disease. * 10/13/23 - Home O2 eval - Patient did not require supplemental oxygen at rest or with ambulation. * 04/21/23 - LDCT - There are scattered bilateral nodules throughout both lungs measuring 3mm or less. There is emphysema. No focal airspace consolidation. * 11/13/22 - Home O2 eval - Patient required 2L/min O2 with ambulation and none at rest. * 04/20/22 - LDCT - Stable small bilateral pulmonary nodules measuring 3mm or less. No new pulmonary nodules or masses. * 08/05/2021 - Overnight oximetry performed on 1L/min O2 with sleep. Data recorded for 7.5 hours. Patient spent 57 minutes below 88% O2 saturation with 13 minutes consecutively less than 88%. Oxygen desaturation index 23. Patient was instructed to wear 2L/min O2 at night with sleep and overnight oximetry was repeated on 2L/min. * 08/08/21 - Overnight oximetry on 2L/min with sleep - 8 min spent below 88% saturation, all at the very beginning of the study, after which oxygen saturation consistent remained above 90%. NILAY 9. * 04/18/21 - LDCT - Emphysema. Scattered nodules 3mm or less in both lungs without significant change compared to 04/2020. Lung-RADS category 2: Continue annual screening with LDCT in 12 months. * 10/04/20 - Overnight oximetry on room air - Low saturation 70%, high saturation 99%, average 90%; time with saturation at 88% or below was 42.4 minutes. She was prescribed 1L/min O2 at night. * 10/10/20 - Home O2 assessment - Required no oxygen at rest, 2L with activity. * 07/29/2017 - PFT - FEV1 58% of predicted. Decreased maximal expiratory airflow at all lung volumes with a concave expiratory flow tracing. The FEV1: FVC ratio is 58%. The absolute diffusion capacity is 8.0, 42% predicted. The diffusion capacity corrected for alveolar volume is 2.72, 75% predicted. * 04/29/2020 - CTA chest - mild apical centrilobular and paraseptal emphysema. Mild left lingula and lower lobe atelectasis chronic less than 3 mm noncalcified pulmonary nodules unchanged since 09/28/2017. Calcified OGT. No PE. * 05/22/2019- Echo - with normal LV systolic function 65-70%. Grade 1 diastolic dysfunction. There is trace tricuspid regurg with an estimated pulmonary arterial systolic pressure of 40. Review of Systems Constitutional: Constitutional: Reports no additional constitutional complaints Eyes: Eyes: Reports no additional eye complaints ENT: Reports system reviewed and no additional complaints, except as documented Cardiovascular: Cardiovascular: Reports no additional cardiovascular complaints Respiratory: Respiratory: Reports no additional respiratory complaints Gastrointestinal: Gastrointestinal: Reports no additional gastrointestinal complaints Musculoskeletal: Musculoskeletal: Reports no additional musculoskeletal complaints Neurologic: Reports system reviewed and no additional complaints, except as documented Psychiatric: Psychiatric: Reports no additional psychiatric complaints Endocrine: Endocrine: Reports no additional endocrine complaints Hematologic/Lymphatic: Hematologic/Lymphatic: Reports no additional hematologic/lymphatic complaints Allergic/Immunologic: Allergic/Immunologic: Reports no additional allergic/immunologic complaints Exam Const: General: cooperative, healthy appearing and comfortable Orientation/consciousness: oriented to person, oriented to place and oriented to time HENMT: Head: normal to inspection Ears: hearing grossly normal bilaterally Eyes: General: appearance normal, both eyes and all related structures Neck: Neck: normal visual inspection Chest: Chest palpation & inspection: normal inspection of the chest Resp: Effort & Inspection: normal respiratory effort and able to speak in complete sentences Auscultation: no crackles, no rales, no rhonchi, no wheezes and diminished lung sounds Cardio: Jugular venous distension: no JVD GI: Inspection: normal to inspection Skin: General skin exam: normal color Neuro: General: oriented to person, oriented to place and oriented to time Extrem: General: normal to inspection Psych: Appearance: grossly normal Objective Data Vital Signs Vital Signs: Vital Signs - 24 hr 03/20/25 09:51 03/20/25 11:26 03/20/25 11:26 Temperature Pulse Rate 97 97 Respiratory Rate 20 20 20 Blood Pressure Pulse Oximetry 91 94 Oxygen Delivery Room Air Room Air Oxygen Flow Rate 03/20/25 11:39 03/20/25 14:00 03/20/25 15:53 Temperature Pulse Rate 78 101 H 92 Respiratory Rate 20 16 20 Blood Pressure 114/55 L Pulse Oximetry 96 93 Oxygen Delivery Room Air Oxygen Flow Rate 03/20/25 15:53 03/20/25 16:00 03/20/25 19:58 Temperature 36.5 C Pulse Rate 92 95 94 Respiratory Rate 20 20 18 Blood Pressure 113/55 L Pulse Oximetry 93 Oxygen Delivery Oxygen Flow Rate 03/20/25 20:00 03/20/25 20:40 03/20/25 20:40 Temperature Pulse Rate 94 Respiratory Rate 20 Blood Pressure Pulse Oximetry 93 Oxygen Delivery Room Air Room Air Oxygen Flow Rate 03/20/25 20:46 03/20/25 22:55 03/21/25 05:29 Temperature 36.4 C Pulse Rate 95 74 Respiratory Rate 20 20 Blood Pressure 117/62 Pulse Oximetry 93 95 Oxygen Delivery Nasal Cannula Oxygen Flow Rate 2 03/21/25 05:33 03/21/25 07:58 03/21/25 07:58 Temperature Pulse Rate 75 81 Respiratory Rate 18 24 H Blood Pressure Pulse Oximetry 91 Oxygen Delivery Room Air Oxygen Flow Rate 03/21/25 08:06 Temperature Pulse Rate 81 Respiratory Rate 20 Blood Pressure Pulse Oximetry Oxygen Delivery Oxygen Flow Rate Intake/Output Intake/Output: Intake & Output 03/18/25 03/19/25 03/20/25 03/21/25 23:59 23:59 23:59 23:59 Intake Total 1220 2390 390 Output Total 200 1000 Balance 1020 1390 390 Meds/Results Medications: Active Medications Generic Name Dose Route Start Last Admin Trade Name Freq PRN Reason Stop Dose Admin Albuterol/Ipratropium 3 ml 03/19/25 12:00 03/21/25 07:56 Ipratropium 0.5 Mg/Albuterol Sulfate 2.5 Mg Ampul.Neb 3 Ml INHALATION 3 ml Q4HRT ARNAV Administration Azelastine HCl 1 spray 03/19/25 09:00 03/20/25 21:02 Azelastine Hcl Nasal 0.1% 137 Mcg/Spr 30 Ml Btl NASAL 1 spray Q12HR ARNAV Administration Azithromycin 500 mg 03/19/25 09:00 03/20/25 09:51 Azithromycin 500 Mg Tablet PO 500 mg DAILY ARNAV Administration Enoxaparin Sodium 40 mg 03/20/25 09:00 03/20/25 09:49 Enoxaparin 40 Mg/0.4 Ml Syringe SUB-Q 40 mg DAILY ARNAV Administration Ergocalciferol 1,250 mcg 03/20/25 09:00 03/20/25 09:49 Ergocalciferol (Vitamin D2) 1,250 Mcg (50,000 Units) Capsule PO 04/19/25 08:59 1,250 mcg Tu@0900 ARNAV Administration Fluticasone Propionate 1 spray 03/19/25 09:00 03/20/25 21:02 Fluticasone Propionate 0.05% Na Spr 16 Gm Btl (*Bkc) NASAL 1 spray Q12HR ARNAV Administration Guaifenesin 1,200 mg 03/19/25 09:00 03/20/25 21:01 Guaifenesin 12 Hr 600 Mg Tabcr PO 1,200 mg Q12HR ARNAV Administration Hydrochlorothiazide 12.5 mg 03/19/25 09:00 03/20/25 09:50 Hydrochlorothiazide 12.5 Mg Capsule PO 12.5 mg QAM ARNAV Administration Losartan Potassium 50 mg 03/19/25 09:00 03/20/25 09:50 Losartan Potassium 50 Mg Tablet PO 50 mg QAM ARNAV Administration Prednisone 40 mg 03/20/25 11:00 03/20/25 10:04 Prednisone 20 Mg Tablet PO 40 mg DAILY@0800 ARNAV Administration Temazepam 7.5 mg 03/19/25 21:00 03/20/25 22:53 Temazepam (*Crx) 7.5 Mg Capsule PO 7.5 mg QHS ARNAV Administration Radiology Results: ITS Impressions Chest X-Ray 03/19/25 07:52 IMPRESSION: 1. Chronic mild ventricular atelectasis/scarring. No acute cardiopulmonary disease. Labs Labs: Laboratory Results - last 24 hr 03/19/25 03/21/25 11:38 06:32 WBC 8.6 RBC 4.87 Hgb 13.5 Hct 43.0 MCV 88.3 MCH 27.7 MCHC 31.4 L RDW 14.9 H Plt Count 140 L MPV 13.4 H Immature Gran % (Auto) 0.3 Neut % (Auto) 72.4 Lymph % (Auto) 20.9 [place] % (Auto) 5.8 Eos % (Auto) 0.3 Baso % (Auto) 0.3 Lymph # (Auto) 1.80 [place] # (Auto) 0.5 Eos # (Auto) 0.0 Baso # (Auto) 0.0 Abs Immat Gran (auto) 0.03 Absolute Neuts (auto) 6.2 Absolute Nucleated RBC 0.000 Nucleated RBC % 0.0 % Immature Plt Fraction 16.8 H Sodium 135 L Potassium 3.9 Chloride 101 Carbon Dioxide 30 Anion Gap 4 BUN 20 H Creatinine 0.75 Estim Creat Clear Calc Not Reportable Estimated GFR > 60 Glucose 92 Calcium 9.2 Total Bilirubin 0.3 AST 24 ALT 20 Alkaline Phosphatase 121 Total Protein 6.3 Albumin 3.7 Chlamy pneumoniae PCR Not detected Adenovirus (PCR) Not detected B. pertussis DNA (PCR) Not detected B.parapertussis DNA PCR Not detected Coronavirus OC43 (PCR) Not detected Coronavirus HKU1 (PCR) Not detected Coronavirus 229E (PCR) Not detected Coronavirus NL63 (PCR) Not detected Human Metapneumovir PCR Not detected Influenza A (H1) PCR Not detected Influ A (H1/09) PCR Not detected Influenza A (H3) PCR Not detected Influenza Type A (PCR) Not detected Influenza Type B (PCR) Not detected M. pneumoniae (PCR) Not detected Parainfluenza 1 (PCR) Not detected Parainfluenza 2 (PCR) Not detected Parainfluenza 3 (PCR) Not detected Parainfluenza 4 (PCR) Not detected RSV (PCR) Not detected Entero/Rhino (PCR) Not detected SARS-CoV-2 (PCR) Not detected
[2025-03-21] MEDS: AZITHROMYCIN 500 MG TABLET PO (08:48)
[2025-03-21] MEDS: guaiFENesin 12 HR 600 MG TABCR 1200 MG PO (08:48)
[2025-03-21] MEDS: ENOXAPARIN 40 MG/0.4 ML SYRINGE SUB-Q (08:48)
[2025-03-21] MEDS: LOSARTAN POTASSIUM 50 MG TABLET PO (08:48)
[2025-03-21] MEDS: AZELASTINE HCL NASAL 0.1% 137 MCG/SPR 30 ML BTL 1 SPRAY NASAL (08:51)
[2025-03-21] MEDS: FLUTICASONE PROPIONATE 0.05% NA SPR 16 GM BTL (*BKC) 1 SPRAY NASAL (08:51)
[2025-03-21] MEDS: LORazepam (*CRX) 0.5 MG TABLET PO (11:14)
--- NOTE | 2025-03-21 13:19 | PM.DS ---
DS: Admitting Diagnosis Discharge Date 03/21/2025 Admitting Diagnosis Shortness of breath DS: Discharge Diagnosis Discharge Diagnosis (1) Acute exacerbation of chronic obstructive pulmonary disease: Code(s): J44.1 - Chronic obstructive pulmonary disease with (acute) exacerbation Status: Acute Assessment and Plan: Please refer hospital course of brief summary Present with shortness of breath in the setting of COPD, complains of nocturnal hypoxia, chronic smoker, multiple COPD exacerbation in the past Chest x-ray shows no acute infiltrate or consolidation-only chronic mild ventricular atelectasis or scarring Status post IV Solu-Medrol and nebulizer Pulmonology consulted, appreciate recs Per pulmonology, discontinued Trelegy Continue home Flonase and Astelin q.12 hours P.r.n. DuoNebs, Mucinex Continue 500 mg of azithromycin for 2 more days as anti-inflammatory agent Discontinue Solu-Medrol Continue prednisone Continue DuoNebs Q 6p.r.n. Continue guaifenesin q.12 hours Acapella/incentive spirometry/chest physiotherapy Follow-up with strep pneumo and Legionella antigen Follow serum mycoplasma IgM, BNP and CRP Smoking cessation counseling was given, she is willing to try Chantix as outpatient (2) Nocturnal hypoxemia due to emphysema: Code(s): J43.9 - Emphysema, unspecified; G47.36 - Sleep related hypoventilation in conditions classified elsewhere Status: Acute Assessment and Plan: Will order overnight pulse oximetry study (3) HTN (hypertension): Code(s): I10 - Essential (primary) hypertension Status: Acute Assessment and Plan: Patient takes losartan and hydrochlorothiazide at home DS: Summary Hospital Course Hospital Course: 80-year-old female with a past medical history of COPD/emphysema, nocturnal hypoxemia, grade 1 diastolic dysfunction, essential hypertension, chronic sinusitis/allergic rhinitis who presented to the ER with shortness of breath. The patient reports that she and her work cleaning out a bedroom matter daughter's house and there was lots of dust and animal dander. The next morning when she woke up she was having significant difficulty breathing. She reports that despite using her nebulizer almost constantly she has had increasing work of breathing. She has went through 2 weeks worth of nebulizer solution in 3 days. She reports that her cough is usually chronically productive but since onset of symptoms her cough is now become completely nonproductive. She denies any fevers or chills. She denies any chest pain. She states that she cannot take a deep breath. She reports that her appetite and weight have been stable. She usually uses the oxygen at night and p.r.n. during the day. However since onset of symptoms she has had to use her oxygen almost continuously. She reports that she usually gets more benefit from liquid Mucinex and has tried this at home with no improvement in symptoms. She reports that she feels so bad at this time that she even started thinking about possibly going on palliative care or hospice if her symptoms do not improve. 03/21/2025: Patient is currently doing well. Patient reports anxious . Patient reports that she wants oxygen at home and she needs during sometimes when she gasping for air. Patient was evaluated by the 3 year olds preschool teacher and advised to discharge with the following recommendation: Prednisone 40 mg p.o. q.day x1 day Azithromycin 250 mg p.o. q.day x2 days Trilogy 100-60 2.5-25 at 1 puff q.day Rescue albuterol 2 puffs q.4 hours p.r.n. shortness of breath or wheezing Guaifenesin 600 mg p.o. b.i.d. p.r.n. congestion Flonase 1 spray each nostril b.i.d. Astelin 1 spray each nostril b.i.d. Oxygen per formal home O2 assessment which I have ordered. Oxygen at night at 2 L. Chantix starter pack ( 0.5 mg once a day x3 days, 0.5 mg twice a day times 4 days then 1 mg twice a day) Patient had episodes of anxiety/panic attack. Given Ativan 0.5 mg IV 1 time today and patient will be discharged with the BuSpar and advised to follow-up with the PCP/psychiatrist for further treatment. On the day of discharge, the patient was seen and examined. Vital signs were stable. Physical exam were stable and labs were reviewed at length. Discharge instructions, medications, and follow-up appointments were discussed with the patient at length and all day questions were answered. ER warnings were given. Status at Discharge Cognitive/behavioral status at discharge: Stable Time Spent with Patient Time attestation: Total time spent providing and/or coordinating discharge services: 45 minute Exam Narrative: APPEARANCE: No acute distress EYES: EOMI HEENT: Normocephalic, atraumatic, OMM RESPIRATORY: No respiratory distress Clear to auscultation bilaterally with no rhonchi wheezing or rales. CARDIOVASCULAR: RRR, S1 and S2 without murmurs rubs or gallops. ABDOMINAL: Soft, nontender, nondistended, no rebound or guarding MSK: 5/5 motor strength in all extremities, no swelling in the Legs NEURO: Awake and alert. Following commands, speech normal, no focal deficits SKIN:: Warm, dry. No rashes lesions or abrasions PSYCHIATRIC: Labile mood Const: Other: Acutely ill-appearing, obese, appears stated age HENMT: Other: Dentures in upper jaw, mucous membranes are tacky, mild posterior oral pharyngeal erythema, head is normocephalic atraumatic Eyes: Other: Pupils are equal and reactive, no scleral icterus Neck: Other: No JVD, no lymphadenopathy Resp: Other: September conversational dyspnea speaking in 2 word sentences, accessory muscle use, frequent cough, bilateral wheezing Cardio: Other: Regular rate, regular rhythm, 2+ bilateral radial pedal pulses GI: Other: Distended, soft Skin: Other: No jaundice, no pallor Neuro: Other: Alert oriented x4, speech is clear, no facial asymmetry, no localizing neurologic deficits noted during the course of conversation, chronic hearing loss Extrem: Other: No cyanosis, no edema Psych: Other: Appropriate mood and affect, pleasant and cooperative, judgment and insight intact DS: Data Data Completed and Pending Labs on day of discharge: Labs from last 24 hours 03/21/25 03/20/25 03/19/25 06:32 04:55 11:38 WBC 8.6 RBC 4.87 Hgb 13.5 Hct 43.0 MCV 88.3 MCH 27.7 MCHC 31.4 L RDW 14.9 H Plt Count 140 L MPV 13.4 H Immature Gran % (Auto) 0.3 Neut % (Auto) 72.4 Lymph % (Auto) 20.9 Marshall % (Auto) 5.8 Eos % (Auto) 0.3 Baso % (Auto) 0.3 Lymph # (Auto) 1.80 Marshall # (Auto) 0.5 Eos # (Auto) 0.0 Baso # (Auto) 0.0 Abs Immat Gran (auto) 0.03 Absolute Neuts (auto) 6.2 Absolute Nucleated RBC 0.000 Nucleated RBC % 0.0 % Immature Plt Fraction 16.8 H Sodium 135 L Potassium 3.9 Chloride 101 Carbon Dioxide 30 Anion Gap 4 BUN 20 H Creatinine 0.75 Estim Creat Clear Calc Not Reportable Estimated GFR > 60 Glucose 92 Calcium 9.2 Total Bilirubin 0.3 AST 24 ALT 20 Alkaline Phosphatase 121 Total Protein 6.3 Albumin 3.7 Eozva-3-Usjzszbmwbr 153 Chlamy pneumoniae PCR Not detected Adenovirus (PCR) Not detected B. pertussis DNA (PCR) Not detected B.parapertussis DNA PCR Not detected Coronavirus OC43 (PCR) Not detected Coronavirus HKU1 (PCR) Not detected Coronavirus 229E (PCR) Not detected Coronavirus NL63 (PCR) Not detected Human Metapneumovir PCR Not detected Influenza A (H1) PCR Not detected Influ A (H1/09) PCR Not detected Influenza A (H3) PCR Not detected Influenza Type A (PCR) Not detected Influenza Type B (PCR) Not detected M. pneumoniae (PCR) Not detected Parainfluenza 1 (PCR) Not detected Parainfluenza 2 (PCR) Not detected Parainfluenza 3 (PCR) Not detected Parainfluenza 4 (PCR) Not detected RSV (PCR) Not detected Entero/Rhino (PCR) Not detected SARS-CoV-2 (PCR) Not detected Imaging Radiologist's impression: ITS Impressions Chest X-Ray 03/19/25 07:52 IMPRESSION: 1. Chronic mild ventricular atelectasis/scarring. No acute cardiopulmonary disease. Discharge Plan Discharge Attending physician on discharge: Jose Mchugh Consulting providers: Loren Jasso Discharging Clinician: Jose Mchugh Anticipated Discharge Date/Time: 03/21/25 13:28 Patient Disposition: Home Activity: as tolerated Diet: regular Patient Instructions: Antibiotic Form Patient Language: [place] Stand Alone Forms: General Discharge Information Follow-up/Referrals: Marty Altamirano MD [Primary Care Provider, Family Practice] Loren Jasso MD [Physician, Pulmonology] Discharge Medications: New prednisone 20 mg Tablet 40 mg PO DAILY@0800 Qty: 1 0RF azithromycin 500 mg Tablet 500 mg PO DAILY Qty: 3 0RF buspirone 5 mg tablet 5 mg PO TID Qty: 30 0RF guaifenesin 600 mg tablet extended release 12hr 600 mg PO Q12H PRN (Reason: congestion) Qty: 30 0RF Continued cholecalciferol (vitamin D3) 1,250 mcg (50,000 unit) capsule 1,250 mcg PO WEEKLY Qty: 14 3RF Patient Comments: Tuesdays furosemide 40 mg tablet 40 mg PO DAILY PRN (Reason: edema) Qty: 10 2RF temazepam 7.5 mg capsule 7.5 mg PO QHS Qty: 30 0RF albuterol sulfate 2.5 mg /3 mL (0.083 %) solution for nebulization See Rx Instructions .ROUTE .COMPLEX Qty: 180 5RF Dose Instruction: USE 1 VIAL IN NEBULIZER EVERY 4 TO 6 HOURS NEEDED FOR SHORTNESS OF BREATH AND FOR WHEEZING Rx Instructions: USE 1 VIAL IN NEBULIZER EVERY 4 TO 6 HOURS NEEDED FOR SHORTNESS OF BREATH AND FOR WHEEZING fluticasone propionate 50 mcg/actuation spray,suspension 2 spray intranasal BID Qty: 16 6RF Rx Instructions: administer into each nostril azelastine 137 mcg (0.1 %) spray,non-aerosol 2 spray intranasal BID Qty: 30 6RF Rx Instructions: administer into each nostril losartan-hydrochlorothiazide 50-12.5 mg tablet 1 tablet PO DAILY Qty: 90 1RF Trelegy Ellipta 100-62.5-25 mcg blister with device See Rx Instructions .ROUTE .COMPLEX Qty: 60 11RF Dose Instruction: Inhale 1 puff by mouth once daily Rx Instructions: Inhale 1 puff by mouth once daily Discontinued albuterol sulfate 90 mcg/actuation HFA aerosol inhaler See Rx Instructions .ROUTE .COMPLEX Qty: 9 3RF Dose Instruction: INHALE 1 TO 2 PUFFS BY MOUTH EVERY 4 TO 6 HOURS NEEDED FOR SHORTNESS OF BREATH FOR WHEEZING Rx Instructions: INHALE 1 TO 2 PUFFS BY MOUTH EVERY 4 TO 6 HOURS NEEDED FOR SHORTNESS OF BREATH FOR WHEEZING Date of admission: 03/20/25 10:06 Primary Care Provider: Marty Altamirano Admitting Provider: Beba Tierney Attending physician on admission: Beba Tierney Condition: Improved
--- NOTE | 2025-03-21 14:02 | HOMEO2EVAL ---
Evaluation was performed at [facility] Home Oxygen Evaluation RC: Home Oxygen (O2) Evaluation Start: 03/21/25 08:14 Freq: ONCE Status: Active Protocol: RPE Activity Type Activity Date Activity User E-sign Co-sign Detail Recorded Client Recorded Date Recorded By Document 03/21/25 13:30 DJO [email or web address] 03/21/25 14:02 DJO Document 03/21/25 13:35 [email or web address] [email or web address] 03/21/25 14:02 DJO Document 03/21/25 13:40 [email or web address] [email or web address] 03/21/25 14:02 DJO Document 03/21/25 13:55 [email or web address] [email or web address] 03/21/25 14:02 DJO 03/21/25 03/21/25 03/21/25 13:30 13:35 13:40 Home O2 Evaluation [Oxygen] -Test Phase Resting Exercise Exercise -Oxygen Delivery Room Air Room Air Nasal Cannula -Oxygen Flow Rate (L/min) 1 [Pulse Oximetry] -Pulse Oximetry (90-100 %) 92 88 L 90 [Pulse Rate] -Pulse Rate (60-100 beats/min) 116 H 126 H 128 H [Evaluation] -Activity Tolerance Good [Exercise] -Ambulation Distance (feet) 600 -Ambulation Distance (meters) 182.87 [Charges] -Evaluation Charges O2 Evaluation by Pulmonary 03/21/25 13:55 Home O2 Evaluation [Oxygen] -Test Phase Resting -Oxygen Delivery Room Air -Oxygen Flow Rate (L/min) [Pulse Oximetry] -Pulse Oximetry (90-100 %) 92 [Pulse Rate] -Pulse Rate (60-100 beats/min) 115 H [Evaluation] -Activity Tolerance [Exercise] -Ambulation Distance (feet) -Ambulation Distance (meters) [Charges] -Evaluation Charges
== END 2025-03-21 14:40 | disposition home or self-care (01) | DRG 191 ==
LOC: ANHED 03-19 00:56 → ANH2MED 03-19 01:41
PROVIDERS: Internal Medicine Pulmonary Disease; Student in an Organized Health Care Education/Training Program; Admitting Provider Internal Medicine; Emergency Provider Emergency Medicine; PCP Family Medicine; Visit Provider General Practice
DX: J44.1 Chronic obstructive pulmonary disease with (acute) exacerbation (principal); J96.10 Chronic respiratory failure, unspecified whether with hypoxia or hypercapnia; J43.2 Centrilobular emphysema; G47.36 Sleep related hypoventilation in conditions classified elsewhere; J32.9 Chronic sinusitis, unspecified; J30.9 Allergic rhinitis, unspecified; I10 Essential (primary) hypertension; F17.210 Nicotine dependence, cigarettes, uncomplicated; F41.8 Other specified anxiety disorders; K21.9 Gastro-esophageal reflux disease without esophagitis; E53.8 Deficiency of other specified B group vitamins; Z20.822 Contact with and (suspected) exposure to COVID-19; Z66 Do not resuscitate; Z79.51 Long term (current) use of inhaled steroids; Z79.899 Other long term (current) drug therapy; Z86.16 Personal history of COVID-19; Z91.148 Patient's other noncompliance with medication regimen for other reason
CPT/HCPCS: 36415; 71045; 80053; 82103; 82104; 83735; 83880; 84145; 85025; 85055; 86140; 86738; 87449; 87637; 87899; 94618; 94640; 94667; 94762; 96372; 96374; 96376; 97162; 99291; A9270; G0378; J1650; J2919; J7512

== ENCOUNTER 2025-05-03 21:38 | Inpatient (IN) | payer MEDICARE, SELFPAY ==
--- NOTE | ~2025-05-03 | CT_ITS ---
EXAMINATION: CTA chest PE abdomen pel DATE: 05/04/2025 02:47 INDICATION: Dyspnea. Tachycardia. TECHNIQUE: Computed tomography angiography (CTA) of the chest was performed with 100 mL Omnipaque-350 intravenous contrast timed to evaluate the pulmonary arteries. Coronal maximum intensity projection 3D-reconstructions were created by the technologist. Computed tomography (CT) of the abdomen and pelvis was performed with intravenous contrast. Automated exposure control and iterative reconstruction technique were employed. The dose-length product was 1255.58 mGy-cm. COMPARISON: Chest CT 05/01/2024 FINDINGS: CTA chest: There is mild emphysema. There are airspace opacities in right middle lobe, lingula, and the lower lobes, consistent with pneumonia. No pleural effusion. The heart size is normal. There are coronary artery calcifications. No pericardial effusion. There is mild mediastinal and bilateral hilar lymphadenopathy, likely reactive. There is no pulmonary embolus. There is severe cervical and thoracic spondylosis. CT abdomen and pelvis: Calcifications in the liver and spleen are consistent with old granulomatous disease. There are gallstones in the gallbladder, which is normal in size. The pancreas, adrenal glands, and kidneys are normal. There are no dilated loops of bowel. The appendix is normal. There are no pathologically enlarged lymph nodes. There is no free intraperitoneal fluid. There is severe lumbar spondylosis. IMPRESSION: 1. Pneumonia involving the right middle lobe, lingula, and lower lobes. 2. Mild mediastinal and bilateral hilar lymphadenopathy, likely reactive. 3. No pulmonary embolus. Reviewed, dictated and finalized at location E.
--- NOTE | ~2025-05-03 | XR_ITS ---
Examination: XR chest 2V Clinical History: LUQ pain and increased SOB with fever Comparison: X-ray 03/18/2025 Technique: PA and Lateral Findings: Cardiomediastinal silhouette normal size and configuration. Mild bibasilar patchy opacities. No acute bony abnormality. IMPRESSION: 1. Bibasilar atelectasis and/or airspace disease. Reviewed, dictated and finalized at location R.
--- NOTE | ~2025-05-03 | CT_ITS ---
EXAMINATION: CT brain wo con, 05/04/2025 2:25 CDT HISTORY: headache COMPARISON: No comparisons available. Technique: Axial images obtained of the brain without contrast. One or more of the following dose reduction techniques were used: automated exposure control, adjustment of the mA and/or kV according to patient size, use of iterative reconstruction technique. Findings: No acute infarct or parenchymal hemorrhage. No abnormal mass or mass effect. No midline shift. No extra-axial fluid collections. No hydrocephalus. Mastoid air cells unremarkable. Sinuses and orbits unremarkable. No acute fracture. No significant facial or scalp soft tissue swelling evident. No radiopaque foreign body is seen. Impression: 1.No acute intracranial abnormality. Reviewed, dictated and finalized at location P. Impression: 1.No acute intracranial abnormality.
[2025-05-03 22:06] VITALS: BP 138/73; PULSE 110; RESP 18; TEMP 36.6; O2SAT 97
--- NOTE | 2025-05-03 22:13 | ECG_ITS ---
Test Date: 2025-05-03 22:16:10 Measurements Intervals [place] Rate: 108 P: 56 MO: 126 QRS: 103 QRSD: 85 T: 41 QT: 307 QTc: 413 Interpretive Statements SINUS TACHYCARDIA RIGHT AXIS DEVIATION POSSIBLE LEFT ATRIAL ENLARGEMENT BASELINE ARTIFACT- I, III, AVR, AVL ABNORMAL ECG Compared to ECG 01/18/2025 14:48:11 HEART RATE HAS INCREASED Electronically Signed On 05-04-2025 06:23:20 CDT by Alfredo Chapa D.O.
[2025-05-03 22:32] LABS: Hematocrit 43.4 % (37.0-47.0); Hemoglobin 13.7 g/dL (12.0-15.0); Immature Granulocyte Percent A 0.4 % (0-0.5); Lymphocytes Absolute Auto 0.86 K/mm3 (0.9-3.2); Mean Corpuscular HGB Conc 31.6 g/dl (32-36); Mean Corpuscular Hemoglobin 27.4 pg (26-34); Mean Corpuscular Volume 86.8 fl (80-100); Nucleated Red Blood Cells Absolute Auto 0.000 K/mm3 (0.0-0.012); Nucleated Red Blood Cells Perc 0.0 % (0.0-0.2); Platelet Count Result 173 k/mm3 (150-375); Red Blood Count 5.00 M/mm3 (4.2-5.4); White Blood Count 17.3 K/mm3 (4.5-10.0)
[2025-05-03 22:46] LABS: INR 1.0; Prothrombin Time 13.7 Seconds (11.1-14.7)
[2025-05-03 22:47] LABS: Partial Thromboplastin Time 34.8 Seconds (22.3-36.8)
[2025-05-03 22:48] LABS: Alanine Aminotransferase 36 U/L (6-35); Albumin Level 4.2 g/dL (3.5-5.1); Alkaline Phosphatase 183 U/L (38-126); Anion Gap 7 mmol/L (4-12); Aspartate Amino Transferase 29 U/L (14-36); Bilirubin,Total 1.0 mg/dL (0.2-1.3); Blood Urea Nitrogen 17 mg/dL (7-17); Calcium 9.2 mg/dL (8.4-10.2); Carbon Dioxide 26 mmol/L (22-30); Chloride 96 mmol/L (98-107); Estimated Glomerular Filt Rate > 60; Glucose 141 mg/dL (65-110); Lipase 54 U/L (23-300); Potassium 4.1 mmol/L (3.4-5.0); Sodium 129 mmol/L (137-145); Total Protein 7.6 g/dL (6.3-8.2)
[2025-05-03 22:55] LABS: Troponin I < 0.012 ng/mL (0.000-0.034)
[2025-05-04] VITALS (24 sets, daily range): BP systolic 99–140; BP diastolic 47–106; PULSE 79–105; RESP 15–27; TEMP 36.4–37.1; O2SAT 91–97
--- NOTE | 2025-05-04 01:55 | PC.NURSE ---
Pt ambulatory to intake desk threatening to leave if she is not taken to a room soon. States she has been skipped over multiple times by patients who have not been here as long as she has. This RN assured her that we were working as speedily as possible and that she has not been skipped over by anyone.
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
[2025-05-04 02:38] LABS: Troponin I < 0.012 ng/mL (0.000-0.034)
[2025-05-04 02:54] LABS: Lipase 34 U/L (23-300); Magnesium 2.4 mg/dL (1.6-2.3)
[2025-05-04 03:01] LABS: NT Pro B Type Natriuretic Pept 112 pg/mL (19.9-100)
[2025-05-04 03:20] LABS: Creatine Kinase 38 U/L (30-135)
[2025-05-04 03:35] LABS: Procalcitonin 0.2 ng/mL
[2025-05-04 03:43] LABS: CRP 32.8 mg/dL (<1.0)
[2025-05-04 03:43] LABS: Influenza A QL RT-PCR Negative (Negative); Influenza B QL RT-PCR Negative (Negative); RSV RNA, RT-PCR Negative (Negative); SARS-CoV-2 RNA PCR Negative (Negative)
[2025-05-04 03:56] LABS: Thyroid Stimulating Hormone Reflex 1.560 uIU/mL (0.465-4.68)
[2025-05-04 04:03] LABS: Add Urine Microscopic? YES; Appearance Urine Clear (Clear); Glucose Urine UA Negative (Negative); Leukocyte Esterase Ur Negative LEU/UL (Negative); Need Manual Microscopic Reviewed; Nitrate Urine Negative (Negative); Non Pathogenic Casts 0-2; Specific Grav Ur > 1.045 (1.001-1.035)
[2025-05-04] MEDS: ALBUTEROL SULFATE NEB 2.5 MG/3 ML INH INHALATION ×3 (04:17→04:45)
[2025-05-04] MEDS: IPRATROPIUM BR 0.02% INH SOLN 0.5 MG/2.5 ML VIAL INHALATION ×3 (04:18→04:45)
[2025-05-04] MEDS: SODIUM CHLORIDE 0.9% IV 1,000 ML 999 ML IV CONT (04:24)
[2025-05-04] MEDS: AZITHROMYCIN IV 500 MG in SODIUM CHLORIDE 0.9% IV 250 ML IVPB (05:19)
[2025-05-04] MEDS: cefTRIAXone 1 GM in SODIUM CHLORIDE 0.9% IV 50 ML 100 ML IVPB (05:19)
--- NOTE | 2025-05-04 05:35 | PM.IMHP ---
H&P: HPI History of Present Illness Date/Time: 05/04/25 05:35 Chief Complaint: Shortness of breath, nausea and vomiting, feeling unwell Narrative: A pleasant 80-year-old female with history of active tobacco abuse, gold grade 2 COPD group E with hypoxic respiratory failure requiring 2 L while sleeping and with activity, diastolic dysfunction grade 1 taking Lasix p.r.n., hypertension, depression with anxiety presents to [facility] ER on 05/04/2025 complaining of shortness of breath, nausea and vomiting for about 2-3 days. She has poor oral intake. She has a chronic cough with opaque white sputum, that has not changed. She wears 2 L at night and with activity. She follows with Dr. Alfonso pulmonology and last seen on 03/27/2025. She was again encouraged to stop smoking. She has had multiple hospitalizations for COPD exacerbations. She is on Trelegy, albuterol rescue inhaler. She has a nebulizer at home. She uses Flonase twice a day and has azelastine, it was recommended to pursue pulmonary rehabilitation but patient declined. In the ER she was noted to be tachypneic but saturating 92% on room air. She had a transient soft blood pressure of 99/59 which improved after isotonic fluid resuscitation. WBC 17.3, platelets 173, hemoglobin 13.7, INR 1.0, sodium 129, lactic acid 1.2, ALT 36, alkaline phosphatase 183. She also complained of left upper quadrant abdominal pain. Troponin negative x2, proBNP 112, CRP 32.8, urinalysis slightly abnormal with 1+ ketones, 2+ protein, RBC, 11-20 WBC, occasional squamous cells, no bacteria seen however the patient complains of painful urination for a few days. A CT brain did not demonstrate any acute findings. CTA chest PE in abdomen pelvis demonstrates consolidative opacity within the bilateral lower lobes indicative of atelectasis or pneumonia, cholelithiasis without evidence of acute cholecystitis. Mild distal esophageal wall thickening with mildly prominent adjacent lymph nodes. The patient was given aspirin 324 mg p.o. x1, DuoNeb, 1 L normal saline bolus, ceftriaxone 1 g, azithromycin, Solu-Medrol 125 mg IV x1. Thereafter, the patient reports she was 30% improved, she appeared to be resting comfortably without any tachypnea and speaking in full sentences. Review of Systems Review of Systems: All systems reviewed & are unremarkable except as noted in HPI and below (Subjective) [facility] Past Medical History Medical History (Updated 05/04/25 @ 05:20 by Taz Escobedo DO) Tobacco abuse HTN (hypertension) Nocturnal hypoxemia due to emphysema Vitamin D deficiency, unspecified Chronic rhinosinusitis B12 deficiency Burn of second degree of left forearm, sequela Shingles COVID-19 long hauler Emphysema lung Insomnia Arthritis Chronic pain Chronic ethmoidal sinusitis Right radial head fracture History of tobacco abuse GERD (gastroesophageal reflux disease) MDD (major depressive disorder), recurrent episode, moderate Benign hypertension without CHF 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 No acute bronchodilator response. Severely decreased DLCO with worsening of her DLCO compared to prior study in November of 2016 Surgical History Surgical History S/P sinus surgery Hx of cataract surgery Hx of hysterectomy History of colonoscopy [address] Garcia History of sinus surgery February [address] Rowe due to chronic maxillary and ethmoid sinusitis History of section History of bladder repair surgery History of hemorrhoidectomy H/O hysterectomy for benign disease Due to uterine fibroids in 1996 Family History Family History Sibling Lung cancer Brother Chronic obstructive pulmonary disease Hypertension Diabetes mellitus Mother Acute myocardial infarction Patient's mother is Sibling Family history of elevated blood lipids Hypertension Diabetes mellitus Alcoholism Social History Social History Social History: The patient has been to her for 26 years but they have been for the last 1.5 years. They were in a committed relationship for 13 years prior to getting . She now lives in her own apartment. Her still lives in their home and takes care of the patient's brother who is a disabled . She has 3 children. She has quit smoking multiple times but always returns to smoking she is still intermittently smoking between 1-5 cigarettes a day. She started smoking as a teenager. She denies any significant alcohol use. She does not have any animals in her home. Code status: DNR/DNI per patient request Healthcare power of commercial attorney: Susie Mclain (daughter) Smoking packs per day: 1 Smoking cigarettes per day: 20.0 Years smoked: 55 Smoking pack-years: 55.00 Smoking status: Former smoker Tobacco type: cigarettes Second hand tobacco smoke exposure: Yes Additional smoking assessment comments: pt recently started smoking again about 1 month ago (08/2024) due to stress Alcohol intake: never Substance use: never Substance use type: does not use Do You Feel Safe in your Home?: Yes Lack of Transportation: No Lack of Food: Never True Current Housing: I Have Housing Concerned About Future Housing: No Difficulty Paying Gas/Electric Bills: No Difficulty Paying for Meds: No Currently Unemployed: No Education: Trade/Vocational Certificate Difficulty w/ Childcare or Family Care: No Living arrangements: with family Occupation/Education: retired Gender identity (if verbalized by the patient): Female Sexual Orientation (if Verbalized by the Patient): Straight or Heterosexual Spiritual care concerns: No Agree to blood products: Yes Meds Home Medications and Allergies Home Medications ?Medication ?Instructions ?Recorded ?Confirmed ?Type cholecalciferol (vitamin D3) 1,250 1,250 mcg PO WEEKLY #14 caps 08/24/24 03/27/25 Rx mcg (50,000 unit) capsule furosemide 40 mg tablet 40 mg PO DAILY PRN edema #10 tabs 08/24/24 03/27/25 Rx albuterol sulfate 2.5 mg/3 mL See Rx Instructions .Route 10/30/24 03/27/25 Rx (0.083 %) solution for nebulization .COMPLEX #180 mL azelastine 137 mcg (0.1 %) nasal 2 spray intranasal BID #30 mL 10/30/24 03/27/25 Rx spray fluticasone propionate 50 2 spray intranasal BID #16 grams 10/30/24 03/27/25 Rx mcg/actuation nasal spray,suspension losartan 50 mg-hydrochlorothiazide 1 tablet PO DAILY #90 tabs 11/08/24 03/27/25 Rx 12.5 mg tablet fluticasone fur. 100 mcg-umeclid See Rx Instructions .Route 11/09/24 03/27/25 Rx 62.5 mcg-vilant 25 mcg .COMPLEX #60 ea inhalat.powder (Trelegy Ellipta) guaifenesin 600 mg tablet, 600 mg PO Q12H PRN congestion #30 03/21/25 03/27/25 Rx extended release 12 hr tabs buspirone 5 mg tablet 5 mg PO TID #90 tabs 03/27/25 03/27/25 Rx prednisone 10 mg tablet See Rx Instructions PO DAILY #34 04/13/25 Rx tabs albuterol sulfate 90 mcg/actuation 2 inh inhalation Q4H PRN shortness 04/24/25 Rx aerosol inhaler of breath or wheezing #8.5 grams temazepam 7.5 mg capsule 7.5 mg PO QHS #30 caps 04/30/25 Rx Allergies Allergy/AdvReac Type Severity Reaction Status Date / Time No Known Allergies Allergy Verified 03/27/25 14:56 Vital Signs Vital Signs - 24 hr 05/03/25 22:06 05/04/25 00:33 05/04/25 02:00 Temperature 98 F 98.7 F 98.8 F Pulse Rate 110 H 105 H 96 Respiratory Rate 18 18 26 H Blood Pressure 138/73 131/50 L 140/62 Pulse Oximetry 97 92 97 Oxygen Delivery Room Air 05/04/25 03:30 05/04/25 04:00 05/04/25 04:05 Temperature 98.7 F 98.4 F Pulse Rate 95 93 93 Respiratory Rate 15 23 H 22 H Blood Pressure 126/106 H 99/59 L Pulse Oximetry 96 92 Oxygen Delivery 05/04/25 04:30 05/04/25 04:45 Temperature 98.8 F Pulse Rate 94 92 Respiratory Rate 27 H 18 Blood Pressure 138/55 L Pulse Oximetry 92 Oxygen Delivery Exam Const: General: comfortable and no acute distress Other: A&O x3 Eyes: Pupils: Equal, round and reactive pupils present Neck: Neck: supple Resp: Effort & Inspection: normal respiratory effort Other: Coarse breath sounds, bilateral lower lobe rhonchi Cardio: Rate: regular rate Rhythm: regular rhythm Heart sounds: no murmurs GI: Inspection: non-distended GI Palp: Yes Soft to palpation and No Tenderness to palpation present (GI) : General: Yes bladder normal to palpation Neuro: Motor exam (neuro): 5/5 motor strength present throughout Extrem: General: no edema H&P: Results Labs Labs: Short CBC 05/03/25 Range/Units 22:20 WBC 17.3 H (4.5-10.0) K/mm3 Hgb 13.7 (12.0-15.0) g/dL Hct 43.4 (37.0-47.0) % Plt Count 173 (150-375) k/mm3 BMP 05/03/25 22:20 Sodium 129 L Potassium 4.1 Chloride 96 L Carbon Dioxide 26 BUN 17 Creatinine 0.77 Glucose 141 H Calcium 9.2 Cardiac Enzymes 05/03/25 05/04/25 05/04/25 Range/Units 22:20 02:09 02:10 Total Creatine Kinase 38 (30-135) U/L Troponin I < 0.012 < 0.012 (0.000-0.034) ng/mL Liver Function 05/03/25 Range/Units 22:20 Total Bilirubin 1.0 (0.2-1.3) mg/dL AST 29 (14-36) U/L ALT 36 H (6-35) U/L Alkaline Phosphatase 183 H (38-126) U/L Albumin 4.2 (3.5-5.1) g/dL Urine 05/04/25 Range/Units 03:37 Urine Color Yellow (Yellow) Urine Appearance Clear (Clear) Urine pH 5.0 (5.0-9.0) Ur Specific [place] > 1.045 H (1.001-1.035) Urine Protein 2+ H (Negative) mg/dL Urine Glucose (UA) Negative (Negative) mg/dL Assessment and Plan Assessment and plan (1) Diastolic dysfunction: Code(s): I51.89 - Other ill-defined heart diseases Status: Acute (2) HTN (hypertension): Code(s): I10 - Essential (primary) hypertension Status: Acute (3) Chronic respiratory failure: Code(s): J96.10 - Chronic respiratory failure, unspecified whether with hypoxia or hypercapnia Status: Acute (4) Acute exacerbation of chronic obstructive pulmonary disease: Code(s): J44.1 - Chronic obstructive pulmonary disease with (acute) exacerbation Status: Acute Plan A pleasant 80-year-old female with history of active tobacco abuse, gold grade 2 COPD group E with hypoxic respiratory failure requiring 2 L while sleeping and with activity, diastolic dysfunction grade 1 taking Lasix p.r.n., hypertension, depression with anxiety presents to [facility] ER on 05/04/2025 complaining of shortness of breath, nausea and vomiting for about 2-3 days. She has poor oral intake. She has a chronic cough with opaque white sputum, that has not changed. She wears 2 L at night and with activity. She follows with Dr. Alfonso pulmonology and last seen on 03/27/2025. She was again encouraged to stop smoking. She has had multiple hospitalizations for COPD exacerbations. She is on Trelegy, albuterol rescue inhaler. She has a nebulizer at home. She uses Flonase twice a day and has azelastine, it was recommended to pursue pulmonary rehabilitation but patient declined. In the ER she was noted to be tachypneic but saturating 92% on room air. She had a transient soft blood pressure of 99/59 which improved after isotonic fluid resuscitation. WBC 17.3, platelets 173, hemoglobin 13.7, INR 1.0, sodium 129, lactic acid 1.2, ALT 36, alkaline phosphatase 183. She also complained of left upper quadrant abdominal pain. Troponin negative x2, proBNP 112, CRP 32.8, urinalysis slightly abnormal with 1+ ketones, 2+ protein, RBC, 11-20 WBC, occasional squamous cells, no bacteria seen however the patient complains of painful urination for a few days. A CT brain did not demonstrate any acute findings. CTA chest PE in abdomen pelvis demonstrates consolidative opacity within the bilateral lower lobes indicative of atelectasis or pneumonia, cholelithiasis without evidence of acute cholecystitis. Mild distal esophageal wall thickening with mildly prominent adjacent lymph nodes. The patient was given aspirin 324 mg p.o. x1, DuoNeb, 1 L normal saline bolus, ceftriaxone 1 g, azithromycin, Solu-Medrol 125 mg IV x1. Thereafter, the patient reports she was 30% improved, she appeared to be resting comfortably without any tachypnea and speaking in full sentences. ----- Patient is improved, she will be admitted to medical floor telemetry for further monitoring and management. We will continue with DuoNebs q.4 hours, Solu-Medrol 60 mg IV q.8 hours. Deescalate as she continues to improve. Continue 2 L while sleeping and with activity. Monitor trend of leukocytosis. Patient is afebrile. Monitor hyponatremia. Receiving fluids, acute respiratory illnesses improving. She intermittently has hyponatremia in the past. Community-acquired pneumonia, likely bacterial: Continue ceftriaxone and azithromycin. Quad viral screen negative. Check respiratory pathogen panel. I further encouraged the patient to stop smoking. With multiple hospitalizations patient could use a palliative care consult. She wishes to be DNR. In the ER she received fluid bolus, started on normal saline at 125 cc. Patient has diastolic dysfunction and uses Lasix p.r.n., decreased fluids to 75 cc/hour monitor volume status. Possible UTI: Follow-up blood culture, urine culture. Continue ceftriaxone. Restart home medications as appropriate and indicated. ----- Patient wishes to be DNR. Prior to admission she lives with her daughter. Patient denies alcohol use or recreational drug use. Her daughter does not smoke. Normal saline at 75 cc/hour. Heart healthy diet. Ambulate with assistance. Medical floor with telemetry SCDs. Hospitalist [facility] Advance Care Plan I have confirmed that the patient's Advanced Care Plan is present, code status is documented, or surrogate decision maker is listed in patient medical record.: Yes Medication Reconciliation I have utilized all available resources to obtain, update and review the patients current medications (includes all prescriptions, OTC, herbals, cannabis, and nutritional supplements).: Yes
[2025-05-04] MEDS: SODIUM CHLORIDE 0.9% IV 1,000 ML 75 ML IV CONT (06:23)
--- NOTE | 2025-05-04 06:28 | ADMGEN ---
This patient, Abigail Martinez, was admitted to Medical Room 250-01. Patient/family oriented to hospital policies and general routines including ID bracelet, bed and alarms, visiting hours, pain management, procedures, bathroom and other care routines, personal items, smoking policy, room service/diet, and visiting hours. Information on how to activate the Rapid Response Team has been discussed. Patient/Family are encouraged to report perceived risks to care and to ask questions if they do not understand what they are told or what they should do.
--- NOTE | 2025-05-04 08:02 | P.PNIM_ITS ---
Progress Note: A&P Assessment and Plan (1) Pneumonia: Code(s): J18.9 - Pneumonia, unspecified organism Status: Acute Assessment and Plan: * CXR: Bibasilar atelectasis and/or airspace disease * Chest/abdomen/pelvis CTA: Pneumonia involving the right middle lobe, lingula, and lower lobes. Mild mediastinal and bilateral hilar lymphadenopathy, likely reactive. No pulmonary embolus. * started on CAP tx: azithromycin & ceftriaxone * Viral PCR: negative for Flu/COVID/RSV * Consider ordering legionella, mycoplasma and pneumococcal * no supplemental O2 requirement * supportive treatment * trend labs * Monitor vital signs, I&Os, neuro status and patient is a fall risk * Follow WBC, serum electrolytes, temperature curves and cultures * Send sputum cultures * Gentle IV fluid resuscitation (2) Abnormal urinalysis: Code(s): R82.90 - Unspecified abnormal findings in urine Status: Acute Assessment and Plan: * UA: 2+ protein, 1+ ketones, 21-50 RBC, 11-20 WBC, no bacteria or leukocyte esterase * UC obtained on 05/04 * started on Rocephin (3) Acute exacerbation of chronic obstructive pulmonary disease: Code(s): J44.1 - Chronic obstructive pulmonary disease with (acute) exacerbation Status: Acute Assessment and Plan: * Monitor vital signs, I&Os, neuro status and patient is a fall risk * Monitor serum electrolytes, cultures and CBC * Monitor Oxygen saturation, Oxygen via NC; wean oxygen as tolerated, keep SpO2 greater than 88% * Send sputum cultures if possible * Azithromycin 500mg * Duonebz q6H and Albuterol q2H prn * Solu-Medrol 40 mg IVq12H (4) HTN (hypertension): Code(s): I10 - Essential (primary) hypertension Status: Acute Assessment and Plan: * Patient's blood pressure was reviewed on 05/04 * Blood pressure remains well controlled. * Will continue current medications. * 125/59 (5) Chronic respiratory failure: Code(s): J96.10 - Chronic respiratory failure, unspecified whether with hypoxia or hypercapnia Status: Acute Assessment and Plan: * Requires baseline 2 L O2 requirement at night * Not currently on O2 supplementation (6) ZOEY (generalized anxiety disorder): Code(s): F41.1 - Generalized anxiety disorder Status: Acute Assessment and Plan: * Restart home medications (7) Diastolic dysfunction: Code(s): I51.89 - Other ill-defined heart diseases Status: Acute Assessment and Plan: * Continue Lasix Subjective Date/time seen: 05/04/25 08:02 Interval history: 80-year-old female with history of active tobacco abuse, gold grade 2 COPD group E with hypoxic respiratory failure requiring 2 L while sleeping and with activity, diastolic dysfunction grade 1 taking Lasix p.r.n., hypertension, depression with anxiety presents to [facility] ER on 05/04/2025 complaining of shortness of breath, nausea and vomiting for about 2-3 days. 05/04/2025 Patient was sitting comfortably in bed at time of exam. States that she feels much better today than yesterday. Still endorsing mild productive cough, denies any SOB at rest. Denies any chest pain, n/v or abd pain. Still has some dysuria. Blood and urine cultures still pending. WBC downtrending, 17.3 -> 13.5. Remains afebrile. Continue IV abx and monitor labs, vitals and cultures. Review of Systems Review of Systems: All systems reviewed & are unremarkable except as noted in HPI and below (Subjective) Exam Const: General: comfortable and no acute distress Other: A&O x3 Eyes: Pupils: Equal, round and reactive pupils present Neck: Neck: supple Resp: Effort & Inspection: normal respiratory effort Other: Coarse breath sounds, bilateral lower lobe rhonchi Cardio: Rate: regular rate Rhythm: regular rhythm Heart sounds: no murmurs GI: Inspection: non-distended : General: Yes bladder normal to palpation Bimanual exam- vagina & uterus: bladder normal to palpation Neuro: Cranial nerves: Yes Equal, round and reactive pupils present Motor exam (neuro): 5/5 motor strength present throughout Extrem: General: no edema Objective Data Vital Signs Vital Signs: Vital Signs - 24 hr 05/03/25 22:06 05/04/25 00:33 05/04/25 02:00 Temperature 98 F 98.7 F 98.8 F Pulse Rate 110 H 105 H 96 Respiratory Rate 18 18 26 H Blood Pressure 138/73 131/50 L 140/62 Pulse Oximetry 97 92 97 Oxygen Delivery Room Air 05/04/25 03:30 05/04/25 04:00 05/04/25 04:05 Temperature 98.7 F 98.4 F Pulse Rate 95 93 93 Respiratory Rate 15 23 H 22 H Blood Pressure 126/106 H 99/59 L Pulse Oximetry 96 92 Oxygen Delivery 05/04/25 04:30 05/04/25 04:45 05/04/25 06:30 Temperature 98.8 F 97.8 F Pulse Rate 94 92 90 Respiratory Rate 27 H 18 20 Blood Pressure 138/55 L 125/59 L Pulse Oximetry 92 97 Oxygen Delivery Intake/Output Intake/Output: Intake & Output 05/01/25 05/02/25 05/03/25 05/04/25 23:59 23:59 23:59 23:59 Intake Total 1000 Balance 1000 Meds/Results Medications: Active Medications Generic Name Dose Route Start Last Admin Trade Name Freq PRN Reason Stop Dose Admin Albuterol/Ipratropium 3 ml 05/04/25 08:00 Ipratropium 0.5 Mg/Albuterol Sulfate 2.5 Mg (Base) Ampul.Neb 3 Ml INHALATION Q4HRT [facility] Ceftriaxone Sodium 1 gm/ 50 mls @ 100 mls/hr 05/05/25 05:00 Sodium Chloride IVPB Q24H ARNAV Azithromycin 500 mg/ Sodium 250 mls @ 250 mls/hr 05/05/25 06:00 Chloride IVPB 05/08/25 06:59 Q24H ARNAV Sodium Chloride 1,000 mls @ 75 mls/hr 05/04/25 05:20 05/04/25 06:23 Normal Saline Iv IV CONT 75 mls/hr .[id number] ARNAV Administration Methylprednisolone Sodium Succinate 60 mg 05/04/25 09:00 Methylprednisolone Sod Succ 40 Mg Vial IV PUSH Q8H [facility] Labs Labs: Laboratory Results - last 24 hr 05/03/25 05/04/25 05/04/25 22:20 02:09 02:10 WBC 17.3 H RBC 5.00 Hgb 13.7 Hct 43.4 MCV 86.8 MCH 27.4 MCHC 31.6 L RDW 14.9 H Plt Count 173 MPV 13.0 H Immature Gran % (Auto) 0.4 Neut % (Auto) 88.3 H Lymph % (Auto) 5.0 L [place] % (Auto) 5.7 Eos % (Auto) 0.3 Baso % (Auto) 0.3 Lymph # (Auto) 0.86 L [place] # (Auto) 1.0 H Eos # (Auto) 0.1 Baso # (Auto) 0.1 Abs Immat Gran (auto) 0.07 H Absolute Neuts (auto) 15.2 H Absolute Nucleated RBC 0.000 Nucleated RBC % 0.0 PT 13.7 INR 1.0 APTT 34.8 Sodium 129 L Potassium 4.1 Chloride 96 L Carbon Dioxide 26 Anion Gap 7 BUN 17 Creatinine 0.77 Estim Creat Clear Calc Not Reportable Estimated GFR > 60 Glucose 141 H Lactic Acid Calcium 9.2 Magnesium 2.4 H Total Bilirubin 1.0 AST 29 ALT 36 H Alkaline Phosphatase 183 H Total Creatine Kinase 38 Troponin I < 0.012 < 0.012 C-Reactive Protein 32.8 H NT-Pro-B Natriuret Pep 112 H Total Protein 7.6 Albumin 4.2 Lipase 54 34 Procalcitonin TSH (Reflex) Urine Color Urine Appearance Urine pH Ur Specific [place] Urine Protein Urine Glucose (UA) Urine Ketones Ur Blood (Man) Urine Nitrate Urine Bilirubin Urine Urobilinogen Add Ur Microanalysis Leukocyte Esterase Rfl Urine RBC Urine WBC Ur Squamous Epith Cells Urine Bacteria Urine Casts Influenza A (RT-PCR) Influenza B (RT-PCR) RSV (RT-PCR) SARS-CoV-2 RNA (RT-PCR) 05/04/25 05/04/25 03:02 03:37 WBC RBC Hgb Hct MCV MCH MCHC RDW Plt Count MPV Immature Gran % (Auto) Neut % (Auto) Lymph % (Auto) [place] % (Auto) Eos % (Auto) Baso % (Auto) Lymph # (Auto) [place] # (Auto) Eos # (Auto) Baso # (Auto) Abs Immat Gran (auto) Absolute Neuts (auto) Absolute Nucleated RBC Nucleated RBC % PT INR APTT Sodium Potassium Chloride Carbon Dioxide Anion Gap BUN Creatinine Estim Creat Clear Calc Estimated GFR Glucose Lactic Acid 1.2 Calcium Magnesium Total Bilirubin AST ALT Alkaline Phosphatase Total Creatine Kinase Troponin I C-Reactive Protein NT-Pro-B Natriuret Pep Total Protein Albumin Lipase Procalcitonin 0.2 TSH (Reflex) 1.560 Urine Color Yellow Urine Appearance Clear Urine pH 5.0 Ur Specific [place] > 1.045 H Urine Protein 2+ H Urine Glucose (UA) Negative Urine Ketones 1+ H Ur Blood (Man) Trace Urine Nitrate Negative Urine Bilirubin Negative Urine Urobilinogen 1.0 Add Ur Microanalysis Reviewed Leukocyte Esterase Rfl Negative Urine RBC 21-50 H Urine WBC 11-20 H Ur Squamous Epith Cells Occasional Urine Bacteria None seen Urine Casts 0-2 Influenza A (RT-PCR) Negative Influenza B (RT-PCR) Negative RSV (RT-PCR) Negative SARS-CoV-2 RNA (RT-PCR) Negative Quality VTE Prophylaxis VTE prophylaxis: mechanical ordered
[2025-05-04 08:21] LABS: Alanine Aminotransferase 30 U/L (6-35); Albumin Level 3.4 g/dL (3.5-5.1); Alkaline Phosphatase 163 U/L (38-126); Anion Gap 5 mmol/L (4-12); Aspartate Amino Transferase 28 U/L (14-36); Bilirubin,Total 0.6 mg/dL (0.2-1.3); Blood Urea Nitrogen 16 mg/dL (7-17); Calcium 8.4 mg/dL (8.4-10.2); Carbon Dioxide 24 mmol/L (22-30); Chloride 101 mmol/L (98-107); Estimated Glomerular Filt Rate > 60; Glucose 238 mg/dL (65-110); Hematocrit 37.5 % (37.0-47.0); Hemoglobin 12.0 g/dL (12.0-15.0); Immature Granulocyte Percent A 0.4 % (0-0.5); Lymphocytes Absolute Auto 0.25 K/mm3 (0.9-3.2); Mean Corpuscular HGB Conc 32.0 g/dl (32-36); Mean Corpuscular Hemoglobin 27.8 pg (26-34); Mean Corpuscular Volume 87.0 fl (80-100); Nucleated Red Blood Cells Absolute Auto 0.000 K/mm3 (0.0-0.012); Nucleated Red Blood Cells Perc 0.0 % (0.0-0.2); Platelet Count Result 129 k/mm3 (150-375); Potassium 4.1 mmol/L (3.4-5.0); Red Blood Count 4.31 M/mm3 (4.2-5.4); Sodium 130 mmol/L (137-145); Total Protein 6.5 g/dL (6.3-8.2); White Blood Count 13.5 K/mm3 (4.5-10.0)
[2025-05-04 08:32] LABS: Troponin I < 0.012 ng/mL (0.000-0.034)
[2025-05-04] MEDS: IPRATROPIUM 0.5 MG/ALBUTEROL SULFATE 2.5 MG (BASE) AMPUL.NEB 3 ML INHALATION ×4 (08:43→20:46)
[2025-05-04] MEDS: FLUTICASONE PROPIONATE 0.05% NA SPR 16 GM BTL (*BKC) 2 SPRAY NASAL ×2 (11:44→20:11)
[2025-05-04] MEDS: LOSARTAN POTASSIUM 50 MG TABLET PO (11:45)
[2025-05-04] MEDS: AZELASTINE HCL NASAL 0.1% 137 MCG/SPR 30 ML BTL 2 SPRAY NASAL (20:11)
[2025-05-04] MEDS: TEMAZEPAM (*CRX) 7.5 MG CAPSULE PO (20:12)
[2025-05-05] VITALS (23 sets, daily range): BP systolic 123–136; BP diastolic 50–51; PULSE 80–107; RESP 16–20; TEMP 36.4–36.7; O2SAT 93–96
[2025-05-05] MEDS: IPRATROPIUM 0.5 MG/ALBUTEROL SULFATE 2.5 MG (BASE) AMPUL.NEB 3 ML INHALATION ×7 (00:14→23:57)
[2025-05-05] MEDS: SODIUM CHLORIDE 0.9% IV 1,000 ML 75 ML IV CONT ×2 (04:10→09:18)
[2025-05-05] MEDS: cefTRIAXone 1 GM in SODIUM CHLORIDE 0.9% IV 50 ML 100 ML IVPB (04:10)
[2025-05-05 05:07] LABS: Hematocrit 36.0 % (37.0-47.0); Hemoglobin 11.8 g/dL (12.0-15.0); Immature Granulocyte Percent A 0.5 % (0-0.5); Lymphocytes Absolute Auto 0.33 K/mm3 (0.9-3.2); Mean Corpuscular HGB Conc 32.8 g/dl (32-36); Mean Corpuscular Hemoglobin 28.2 pg (26-34); Mean Corpuscular Volume 85.9 fl (80-100); Nucleated Red Blood Cells Absolute Auto 0.000 K/mm3 (0.0-0.012); Nucleated Red Blood Cells Perc 0.0 % (0.0-0.2); Platelet Count Result 148 k/mm3 (150-375); Red Blood Count 4.19 M/mm3 (4.2-5.4); White Blood Count 8.6 K/mm3 (4.5-10.0)
[2025-05-05 05:36] LABS: Alanine Aminotransferase 38 U/L (6-35); Albumin Level 3.3 g/dL (3.5-5.1); Alkaline Phosphatase 176 U/L (38-126); Anion Gap 5 mmol/L (4-12); Aspartate Amino Transferase 30 U/L (14-36); Bilirubin,Total 0.3 mg/dL (0.2-1.3); Blood Urea Nitrogen 14 mg/dL (7-17); Calcium 8.8 mg/dL (8.4-10.2); Carbon Dioxide 25 mmol/L (22-30); Chloride 104 mmol/L (98-107); Estimated Glomerular Filt Rate > 60; Glucose 240 mg/dL (65-110); Potassium 3.4 mmol/L (3.4-5.0); Sodium 134 mmol/L (137-145); Total Protein 6.2 g/dL (6.3-8.2)
[2025-05-05] MEDS: AZITHROMYCIN IV 500 MG in SODIUM CHLORIDE 0.9% IV 250 ML IVPB (05:40)
--- NOTE | 2025-05-05 08:18 | P.PNIM_ITS ---
Progress Note: A&P Assessment and Plan (1) Pneumonia: Code(s): J18.9 - Pneumonia, unspecified organism Status: Acute Assessment and Plan: * CXR: Bibasilar atelectasis and/or airspace disease * Chest/abdomen/pelvis CTA: Pneumonia involving the right middle lobe, lingula, and lower lobes. Mild mediastinal and bilateral hilar lymphadenopathy, likely reactive. No pulmonary embolus. Viral PCR: negative for Flu/COVID/RSV * Continue azithromycin & ceftriaxone -will switch to Levaquin upon discharge * Follow Legionella, mycoplasma and strep pneumo antigen * Incentive was spirometry and chest physiotherapy * Continue albuterol p.r.n. okay to use DuoNebs p.r.n. (2) Abnormal urinalysis: Code(s): R82.90 - Unspecified abnormal findings in urine Status: Acute Assessment and Plan: * UA: 2+ protein, 1+ ketones, 21-50 RBC, 11-20 WBC, no bacteria or leukocyte esterase * UC obtained on 05/04 * Continue on Rocephin (3) Acute exacerbation of chronic obstructive pulmonary disease: Code(s): J44.1 - Chronic obstructive pulmonary disease with (acute) exacerbation Status: Acute Assessment and Plan: * Monitor vital signs, I&Os, neuro status and patient is a fall risk * Monitor serum electrolytes, cultures and CBC * Monitor Oxygen saturation, Oxygen via NC; wean oxygen as tolerated, keep SpO2 greater than 88% * Send sputum cultures if possible * Azithromycin 500mg * Duonebz q6H and Albuterol q2H prn * Solu-Medrol 40 mg IVq12H (4) HTN (hypertension): Code(s): I10 - Essential (primary) hypertension Status: Acute Assessment and Plan: * Patient's blood pressure was reviewed on 05/04 * Blood pressure remains well controlled. * Will continue current medications. * 125/59 (5) Chronic respiratory failure: Code(s): J96.10 - Chronic respiratory failure, unspecified whether with hypoxia or hypercapnia Status: Acute Assessment and Plan: * Requires baseline 2 L O2 requirement at night * Not currently on O2 supplementation (6) ZOEY (generalized anxiety disorder): Code(s): F41.1 - Generalized anxiety disorder Status: Acute Assessment and Plan: * Restart home medications (7) Diastolic dysfunction: Code(s): I51.89 - Other ill-defined heart diseases Status: Acute Assessment and Plan: * Continue Lasix Plan Switch a Medrol to p.o. tomorrow Switch ceftriaxone to Levaquin tomorrow upon discharge to complete 7 day course of antibiotics Time Spent With Patient Time: 45 minutes Subjective Date/time seen: 05/05/25 08:18 Interval history: 80-year-old female with history of active tobacco abuse, gold grade 2 COPD group E with hypoxic respiratory failure requiring 2 L while sleeping and with activity, diastolic dysfunction grade 1 taking Lasix p.r.n., hypertension, depression with anxiety presents to [facility] ER on 05/04/2025 complaining of shortness of breath, nausea and vomiting for about 2-3 days. 05/05/2025 Solu-Medrol dose reduced to b.i.d. she complains shortness of breath and dyspnea. No fever or chills overnight. She reports cough with minimal phlegm. Review of Systems Review of Systems: All systems reviewed & are unremarkable except as noted in HPI and below Exam Narrative: APPEARANCE: No acute distress, obese EYES: EOMI HEENT: Normocephalic, atraumatic, OMM RESPIRATORY: Wheezing, limited air movement throughout the lung. CARDIOVASCULAR: RRR, S1 and S2 without murmurs rubs or gallops. ABDOMINAL: Soft, nontender, nondistended, no rebound or guarding MSK: range of motion to the left lower extremity is limited due to pain of the left ankle. No bony tenderness throughout either leg and no deformities. NEURO: Awake and alert. Following commands, speech normal, no focal deficits SKIN:: Warm, dry. No rashes lesions or abrasions PSYCHIATRIC: Anxious Objective Data Vital Signs Vital Signs: Vital Signs - 24 hr 05/04/25 08:43 05/04/25 08:53 05/04/25 08:59 Temperature Pulse Rate 99 99 93 Respiratory Rate 20 20 Blood Pressure Pulse Oximetry 92 Oxygen Delivery Room Air Oxygen Flow Rate 05/04/25 11:07 05/04/25 11:13 05/04/25 12:00 Temperature Pulse Rate 90 94 90 Respiratory Rate 20 20 Blood Pressure Pulse Oximetry Oxygen Delivery Oxygen Flow Rate 05/04/25 14:00 05/04/25 16:00 05/04/25 17:04 Temperature 36.6 C Pulse Rate 89 79 87 Respiratory Rate 16 20 Blood Pressure 124/47 L Pulse Oximetry 91 Oxygen Delivery Oxygen Flow Rate 05/04/25 17:12 05/04/25 17:12 05/04/25 20:00 Temperature Pulse Rate 93 Respiratory Rate 20 Blood Pressure Pulse Oximetry 95 95 Oxygen Delivery Nasal Cannula Nasal Cannula Oxygen Flow Rate 1 2 05/04/25 20:00 05/04/25 20:46 05/04/25 20:48 Temperature Pulse Rate 83 83 Respiratory Rate 20 Blood Pressure Pulse Oximetry 94 Oxygen Delivery Nasal Cannula Oxygen Flow Rate 1 05/04/25 20:51 05/04/25 20:54 05/05/25 00:00 Temperature 36.4 C L Pulse Rate 85 84 85 Respiratory Rate 20 16 Blood Pressure 126/48 L Pulse Oximetry 95 Oxygen Delivery Oxygen Flow Rate 05/05/25 00:16 05/05/25 00:21 05/05/25 03:04 Temperature Pulse Rate 87 88 92 Respiratory Rate 20 20 18 Blood Pressure Pulse Oximetry Oxygen Delivery Oxygen Flow Rate 05/05/25 03:10 05/05/25 04:00 05/05/25 04:04 Temperature 36.4 C Pulse Rate 93 88 83 Respiratory Rate 18 16 Blood Pressure 123/50 L Pulse Oximetry 94 Oxygen Delivery Oxygen Flow Rate Intake/Output Intake/Output: Intake & Output 05/02/25 05/03/25 05/04/25 05/05/25 23:59 23:59 23:59 23:59 Intake Total 3020 350 Balance 3020 350 Meds/Results Medications: Active Medications Generic Name Dose Route Start Last Admin Trade Name Freq PRN Reason Stop Dose Admin Albuterol 2.5 mg 05/04/25 10:35 Albuterol Sulfate Neb 2.5 Mg/3 Ml Inh INHALATION Q4HRT PRN SOB AND/OR WHEEZING Albuterol/Ipratropium 3 ml 05/04/25 08:00 05/05/25 03:03 Ipratropium 0.5 Mg/Albuterol Sulfate 2.5 Mg (Base) Ampul.Neb 3 Ml INHALATION 3 ml Q4HRT ARNAV Administration Azelastine HCl 2 spray 05/04/25 10:35 05/04/25 20:11 Azelastine Hcl Nasal 0.1% 137 Mcg/Spr 30 Ml Btl NASAL 2 spray Q12HR ARNAV Administration Buspirone HCl 5 mg 05/04/25 13:00 05/04/25 17:13 Buspirone Hcl 5 Mg Tablet PO 5 mg TID ARNAV Administration Ergocalciferol 1,250 mcg 05/08/25 09:00 Ergocalciferol (Vitamin D2) 1,250 Mcg (50,000 Units) Capsule PO Tu@0900 ARNAV Fluticasone Propionate 2 spray 05/04/25 10:35 05/04/25 20:11 Fluticasone Propionate 0.05% Na Spr 16 Gm Btl (*Bkc) NASAL 2 spray Q12HR ARNAV Administration Fluticasone/Umeclidinium/Vilanterol 1 puff 05/04/25 10:35 05/04/25 17:03 Fluticasone/Umeclidin/Vilanter 100-62.5-25 Mcg Ellipta INHALATION Not Given DAILYRT ARNAV Furosemide 40 mg 05/04/25 10:32 Furosemide 40 Mg Tablet PO DAILY PRN Edema Guaifenesin 600 mg 05/04/25 10:32 Guaifenesin 12 Hr 600 Mg Tabcr PO Q12H PRN Congestion Hydrochlorothiazide 12.5 mg 05/04/25 10:50 05/04/25 11:45 Hydrochlorothiazide 12.5 Mg Capsule PO 12.5 mg QAM ARNAV Administration Ceftriaxone Sodium 1 gm/ 50 mls @ 100 mls/hr 05/05/25 05:00 05/05/25 04:10 Sodium Chloride IVPB 100 mls/hr Q24H ARNAV Administration Azithromycin 500 mg/ Sodium 250 mls @ 250 mls/hr 05/05/25 06:00 05/05/25 05:40 Chloride IVPB 05/08/25 06:59 250 mls/hr Q24H ARNAV Administration Sodium Chloride 1,000 mls @ 75 mls/hr 05/04/25 05:20 05/05/25 04:10 Normal Saline Iv IV CONT 75 mls/hr .[id number] ARNAV Administration Losartan Potassium 50 mg 05/04/25 10:45 05/04/25 11:45 Losartan Potassium 50 Mg Tablet PO 50 mg QAM ARNAV Administration Methylprednisolone Sodium Succinate 60 mg 05/05/25 09:00 Methylprednisolone Sod Succ 40 Mg Vial IV PUSH BID ARNAV Temazepam 7.5 mg 05/04/25 21:00 05/04/25 20:12 Temazepam (*Crx) 7.5 Mg Capsule PO 7.5 mg QHS ARNAV Administration Radiology Results: ITS Impressions Head CT 05/04/25 08:47 Impression: 1.No acute intracranial abnormality. Chest/Abdomen/Pelvis CTA 05/04/25 08:52 IMPRESSION: 1. Pneumonia involving the right middle lobe, lingula, and lower lobes. 2. Mild mediastinal and bilateral hilar lymphadenopathy, likely reactive. 3. No pulmonary embolus. Chest X-Ray 05/04/25 08:53 IMPRESSION: 1. Bibasilar atelectasis and/or airspace disease. Labs Labs: Laboratory Results - last 24 hr 05/04/25 05/05/25 08:00 05:00 WBC 13.5 H 8.6 RBC 4.31 4.19 L Hgb 12.0 11.8 L Hct 37.5 36.0 L MCV 87.0 85.9 MCH 27.8 28.2 MCHC 32.0 32.8 RDW 14.6 H 14.6 H Plt Count 129 L 148 L MPV 12.6 H 12.7 H Immature Gran % (Auto) 0.4 0.5 Neut % (Auto) 96.2 H 93.2 H Lymph % (Auto) 1.9 L 3.8 L [place] % (Auto) 1.2 L 2.4 L Eos % (Auto) 0.1 0.0 Baso % (Auto) 0.2 0.1 L Lymph # (Auto) 0.25 L 0.33 L [place] # (Auto) 0.2 0.2 Eos # (Auto) 0.0 0.0 Baso # (Auto) 0.0 0.0 Abs Immat Gran (auto) 0.05 H 0.04 H Absolute Neuts (auto) 13.0 H 8.0 H Absolute Nucleated RBC 0.000 0.000 Nucleated RBC % 0.0 0.0 Sodium 130 L 134 L Potassium 4.1 3.4 Chloride 101 104 Carbon Dioxide 24 25 Anion Gap 5 5 BUN 16 14 Creatinine 0.61 L 0.56 L Estim Creat Clear Calc Not Reportable Not Reportable Estimated GFR > 60 > 60 Glucose 238 H 240 H Calcium 8.4 8.8 Total Bilirubin 0.6 0.3 AST 28 30 ALT 30 38 H Alkaline Phosphatase 163 H 176 H Troponin I < 0.012 Total Protein 6.5 6.2 L Albumin 3.4 L 3.3 L Quality VTE Prophylaxis VTE prophylaxis: mechanical ordered
[2025-05-05] MEDS: FLUTICASONE/UMECLIDIN/VILANTER 100-62.5-25 MCG ELLIPTA 1 PUFF INHALATION (08:21)
[2025-05-05] MEDS: LOSARTAN POTASSIUM 50 MG TABLET PO (09:12)
[2025-05-05] MEDS: FLUTICASONE PROPIONATE 0.05% NA SPR 16 GM BTL (*BKC) 2 SPRAY NASAL ×2 (09:19→20:52)
[2025-05-05] MEDS: AZELASTINE HCL NASAL 0.1% 137 MCG/SPR 30 ML BTL 2 SPRAY NASAL ×2 (09:19→20:52)
--- NOTE | 2025-05-05 14:49 | PCOTNOTE ---
Per physical therapy, pt just completed a shower and dressed herself and is moving independently at this time and does not have further therapy needs. Will d/c OT orders at this time as pt is at baseline.
[2025-05-05] MEDS: TEMAZEPAM (*CRX) 7.5 MG CAPSULE PO (20:51)
[2025-05-06] VITALS (13 sets, daily range): BP systolic 123; BP diastolic 50; PULSE 81–98; RESP 16–22; TEMP 36.4; O2SAT 94–97
[2025-05-06] MEDS: IPRATROPIUM 0.5 MG/ALBUTEROL SULFATE 2.5 MG (BASE) AMPUL.NEB 3 ML INHALATION ×3 (05:15→12:21)
[2025-05-06 05:29] LABS: Hematocrit 36.1 % (37.0-47.0); Hemoglobin 11.6 g/dL (12.0-15.0); Immature Granulocyte Percent A 0.4 % (0-0.5); Immature Platelet Fraction Pct 12.9 % (0.9-11.2); Lymphocytes Absolute Auto 0.50 K/mm3 (0.9-3.2); Mean Corpuscular HGB Conc 32.1 g/dl (32-36); Mean Corpuscular Hemoglobin 28.1 pg (26-34); Mean Corpuscular Volume 87.4 fl (80-100); Nucleated Red Blood Cells Absolute Auto 0.000 K/mm3 (0.0-0.012); Nucleated Red Blood Cells Perc 0.0 % (0.0-0.2); Platelet Count Result 166 k/mm3 (150-375); Red Blood Count 4.13 M/mm3 (4.2-5.4); White Blood Count 10.0 K/mm3 (4.5-10.0)
[2025-05-06] MEDS: cefTRIAXone 1 GM in SODIUM CHLORIDE 0.9% IV 50 ML 100 ML IVPB (05:31)
[2025-05-06] MEDS: SODIUM CHLORIDE 0.9% IV 1,000 ML 75 ML IV CONT (05:34)
[2025-05-06 05:56] LABS: Alanine Aminotransferase 38 U/L (6-35); Albumin Level 3.0 g/dL (3.5-5.1); Alkaline Phosphatase 151 U/L (38-126); Anion Gap 4 mmol/L (4-12); Aspartate Amino Transferase 28 U/L (14-36); Bilirubin,Total 0.2 mg/dL (0.2-1.3); Blood Urea Nitrogen 17 mg/dL (7-17); Calcium 8.8 mg/dL (8.4-10.2); Carbon Dioxide 29 mmol/L (22-30); Chloride 103 mmol/L (98-107); Estimated Glomerular Filt Rate > 60; Glucose 146 mg/dL (65-110); Potassium 3.8 mmol/L (3.4-5.0); Sodium 136 mmol/L (137-145); Total Protein 5.7 g/dL (6.3-8.2)
[2025-05-06] MEDS: FLUTICASONE/UMECLIDIN/VILANTER 100-62.5-25 MCG ELLIPTA 1 PUFF INHALATION (07:46)
--- NOTE | 2025-05-06 08:25 | P.DS_ITS ---
DS: Admitting Diagnosis Discharge Date 05/06/2025 Admitting Diagnosis Multifocal pneumonia DS: Discharge Diagnosis Discharge Diagnosis (1) Multifocal pneumonia: Code(s): J18.8 - Other pneumonia, unspecified organism Status: Acute (2) COPD exacerbation: Code(s): J44.1 - Chronic obstructive pulmonary disease with (acute) exacerbation Status: Acute Plan Complete Levaquin 750 mg daily for 4 days Continue taking prednisone 40 mg daily before breakfast for 4 days Continue using incentive spirometry at home Discussed with smoking cessation Dr. Alfonso informed her use the nicotine patch and Wellbutrin will help her to quit smoking I also emphasized using a nicotine patch and Chantix DS: Summary Hospital Course Hospital Course: Abigail Martinez is a 80-year-old female with history of active tobacco abuse, gold grade 2 COPD group E with hypoxic respiratory failure requiring 2 L while sleeping and with activity, diastolic dysfunction grade 1 taking Lasix p.r.n., hypertension, depression with anxiety presents to [facility] ER on 05/04/2025 complaining of shortness of breath, nausea and vomiting for about 2-3 days. CTA chest: There is mild emphysema. There are airspace opacities in right middle lobe, lingula, and the lower lobes, consistent with pneumonia. No pleural effusion. The heart size is normal. There are coronary artery calcifications. No pericardial effusion. There is mild mediastinal and bilateral hilar lymphadenopathy, likely reactive. There is no pulmonary embolus. There is severe cervical and thoracic spondylosis. CT abdomen and pelvis: Calcifications in the liver and spleen are consistent with old granulomatous disease. There are gallstones in the gallbladder, which is normal in size. The pancreas, adrenal glands, and kidneys are normal. There are no dilated loops of bowel. The appendix is normal. There are no pathologically enlarged lymph nodes. There is no free intraperitoneal fluid. There is severe lumbar spondylosis. She also has leukocytosis which resolved after IV antibiotics. IV antibiotics transition to p.o. prior to discharge. IV Solu-Medrol switched to prednisone 40 mg daily prior to discharge. Incentive spirometry and chest physiotherapy instituted. Cough mitigation medication were used including Mucinex. Status at Discharge Cognitive/behavioral status at discharge: Hemodynamically stable on room air. Able to ambulate. She has adequate oral intake. Deemed stable to be discharged home. Time Spent with Patient Time attestation: Total time spent providing and/or coordinating discharge services: Exam Narrative: APPEARANCE: No acute distress, obese EYES: EOMI HEENT: Normocephalic, atraumatic, OMM RESPIRATORY: Air circulation the lungs is better today without wheezing CARDIOVASCULAR: RRR, S1 and S2 without murmurs rubs or gallops. ABDOMINAL: Soft, nontender, nondistended, no rebound or guarding MSK: No issues. NEURO: Awake and alert. Following commands, speech normal, no focal deficits SKIN:: Warm, dry. No rashes lesions or abrasions PSYCHIATRIC: Bright mood DS: Data Data Completed and Pending Labs on day of discharge: Labs from last 24 hours 05/06/25 05/04/25 05:05 11:58 WBC 10.0 RBC 4.13 L Hgb 11.6 L Hct 36.1 L MCV 87.4 MCH 28.1 MCHC 32.1 RDW 14.6 H Plt Count 166 MPV 13.1 H Immature Gran % (Auto) 0.4 Neut % (Auto) 90.1 H Lymph % (Auto) 5.0 L [place] % (Auto) 4.4 Eos % (Auto) 0.0 Baso % (Auto) 0.1 L Lymph # (Auto) 0.50 L [place] # (Auto) 0.4 Eos # (Auto) 0.0 Baso # (Auto) 0.0 Abs Immat Gran (auto) 0.04 H Absolute Neuts (auto) 9.0 H Absolute Nucleated RBC 0.000 Nucleated RBC % 0.0 % Immature Plt Fraction 12.9 H Sodium 136 L Potassium 3.8 Chloride 103 Carbon Dioxide 29 Anion Gap 4 BUN 17 Creatinine 0.72 Estim Creat Clear Calc Not Reportable Estimated GFR > 60 Glucose 146 H Calcium 8.8 Total Bilirubin 0.2 AST 28 ALT 38 H Alkaline Phosphatase 151 H Total Protein 5.7 L Albumin 3.0 L Chlamy pneumoniae PCR Not detected Adenovirus (PCR) Not detected B. pertussis DNA (PCR) Not detected B.parapertussis DNA PCR Not detected Coronavirus OC43 (PCR) Not detected Coronavirus HKU1 (PCR) Not detected Coronavirus 229E (PCR) Not detected Coronavirus NL63 (PCR) Not detected Human Metapneumovir PCR Not detected Influenza A (H1) PCR Not detected Influ A (H1/09) PCR Not detected Influenza A (H3) PCR Not detected Influenza Type A (PCR) Not detected Influenza Type B (PCR) Not detected M. pneumoniae (PCR) Not detected Parainfluenza 1 (PCR) Not detected Parainfluenza 2 (PCR) Not detected Parainfluenza 3 (PCR) Not detected Parainfluenza 4 (PCR) Not detected RSV (PCR) Not detected Entero/Rhino (PCR) Not detected SARS-CoV-2 (PCR) Not detected Discharge Plan Discharge Attending physician on discharge: Sis Gould Consulting providers: Vincent Carballo Discharging Clinician: Sis Gould Anticipated Discharge Date/Time: 05/06/25 08:35 Patient Disposition: Home Activity: unlimited Diet: regular Discharge Instructions: Take Levaquin 750 mg daily Take prednisone 40 mg daily before breakfast Patient Instructions: Antibiotic Form Patient Language: [place] Stand Alone Forms: General Discharge Information Follow-up/Referrals: Marty Altamirano MD [Primary Care Provider, [facility]] - 1 Week Discharge Medications: New prednisone 20 mg Tablet 40 mg PO DAILY@0800 Qty: 4 0RF levofloxacin 750 mg tablet 750 mg PO DAILY Qty: 4 0RF Continued cholecalciferol (vitamin D3) 1,250 mcg (50,000 unit) capsule 1,250 mcg PO WEEKLY Qty: 14 3RF Patient Comments: Tuesdays furosemide 40 mg tablet 40 mg PO DAILY PRN (Reason: edema) Qty: 10 2RF buspirone 5 mg tablet 5 mg PO TID Qty: 90 1RF guaifenesin 600 mg tablet extended release 12hr 600 mg PO Q12H PRN (Reason: congestion) Qty: 30 0RF albuterol sulfate 2.5 mg /3 mL (0.083 %) solution for nebulization See Rx Instructions .ROUTE .COMPLEX Qty: 180 5RF Dose Instruction: USE 1 VIAL IN NEBULIZER EVERY 4 TO 6 HOURS NEEDED FOR SHORTNESS OF BREATH AND FOR WHEEZING Rx Instructions: USE 1 VIAL IN NEBULIZER EVERY 4 TO 6 HOURS NEEDED FOR SHORTNESS OF BREATH AND FOR WHEEZING fluticasone propionate 50 mcg/actuation spray,suspension 2 spray intranasal BID Qty: 16 6RF Rx Instructions: administer into each nostril azelastine 137 mcg (0.1 %) spray,non-aerosol 2 spray intranasal BID Qty: 30 6RF Rx Instructions: administer into each nostril losartan-hydrochlorothiazide 50-12.5 mg tablet 1 tablet PO DAILY Qty: 90 1RF Trelegy Ellipta 100-62.5-25 mcg blister with device See Rx Instructions .ROUTE .COMPLEX Qty: 60 11RF Dose Instruction: Inhale 1 puff by mouth once daily Rx Instructions: Inhale 1 puff by mouth once daily albuterol sulfate 90 mcg/actuation HFA aerosol inhaler 2 inh inhalation Q4H PRN (Reason: shortness of breath or wheezing) Qty: 8.5 6RF temazepam 7.5 mg capsule 7.5 mg PO QHS Qty: 30 0RF Date of admission: 05/05/25 16:24 Primary Care Provider: Marty Altamirano Admitting Provider: Sarah Rosen Attending physician on admission: Sarah Rosen Condition: Stable
[2025-05-06] MEDS: LOSARTAN POTASSIUM 50 MG TABLET PO (09:09)
[2025-05-06] MEDS: FUROSEMIDE 40 MG TABLET PO (09:09)
[2025-05-06] MEDS: FLUTICASONE PROPIONATE 0.05% NA SPR 16 GM BTL (*BKC) 2 SPRAY NASAL (09:10)
[2025-05-06] MEDS: AZELASTINE HCL NASAL 0.1% 137 MCG/SPR 30 ML BTL 2 SPRAY NASAL (09:10)
== END 2025-05-06 13:46 | disposition home or self-care (01) | DRG 190 ==
LOC: ANHED 05-04 05:17 → ANH2MED 05-04 05:37
PROVIDERS: Physician Assistant; Admitting Provider General Practice; Emergency Provider Student in an Organized Health Care Education/Training Program; PCP Family Medicine; Visit Provider Student in an Organized Health Care Education/Training Program
DX: J44.0 Chronic obstructive pulmonary disease with (acute) lower respiratory infection (principal); J18.9 Pneumonia, unspecified organism; F33.1 Major depressive disorder, recurrent, moderate; J96.11 Chronic respiratory failure with hypoxia; J44.1 Chronic obstructive pulmonary disease with (acute) exacerbation; I10 Essential (primary) hypertension; I51.89 Other ill-defined heart diseases; E55.9 Vitamin D deficiency, unspecified; E53.8 Deficiency of other specified B group vitamins; J32.2 Chronic ethmoidal sinusitis; K21.9 Gastro-esophageal reflux disease without esophagitis; K58.9 Irritable bowel syndrome, unspecified; M19.90 Unspecified osteoarthritis, unspecified site; M81.0 Age-related osteoporosis without current pathological fracture; G89.29 Other chronic pain; F41.9 Anxiety disorder, unspecified; Z20.822 Contact with and (suspected) exposure to COVID-19; Z72.0 Tobacco use; Z99.81 Dependence on supplemental oxygen
CPT/HCPCS: 36415; 70450; 71046; 71275; 74177; 80053; 81001; 82550; 83605; 83690; 83735; 83880; 84145; 84443; 84484; 85025; 85055; 85610; 85730; 86140; 87040; 87086; 87637; 93005; 94640; 96361; 96374; 96375; 96376; 97161; 99285; A9270; G0378; J0456; J0696; J2919; J7030; J7050; J7512; Q9967

== ENCOUNTER 2025-06-27 12:44 | Emergency (ER) | payer MEDICARE, SELFPAY ==
[2025-06-27] VITALS (20 sets, daily range): BP systolic 136–151; BP diastolic 62–117; PULSE 76–110; RESP 18–24; TEMP 36.5–36.7; O2SAT 91–100
--- NOTE | ~2025-06-27 | XR_ITS ---
EXAMINATION: XR chest 2V, 06/27/2025 13:46 RN RENAL HISTORY: sob; CP w/ coughing; hx COPD COMPARISON: No comparisons available. Technique: 2 views obtained. Findings: The lungs are clear, no effusion. No pneumothorax. Heart is normal size. Mediastinal and hilar contours are within normal limits. Bony thorax no acute abnormality. Impression: No acute cardiopulmonary abnormality. Reviewed, dictated and finalized at location P. RENAL Impression: No acute cardiopulmonary abnormality.
--- NOTE | 2025-06-27 13:01 | ECG_ITS ---
Test Date: 2025-06-27 13:21:23 Measurements Intervals [place] Rate: 86 P: 10 OR: 114 QRS: 86 QRSD: 89 T: 41 QT: 356 QTc: 427 Interpretive Statements SINUS RHYTHM WITH SHORT OR INTERVAL DELAYED PRECORDIAL R/S TRANSITION BASELINE WANDER- III, AVL BORDERLINE ECG Compared to ECG 05/03/2025 22:16:10 HEART RATE HAS DECREASED Short OR interval now present Electronically Signed On 06-27-2025 13:27:55 CONTRACT SPECIALIST by Alfredo Chapa D.O.
--- NOTE | 2025-06-27 13:12 | ED.SOB ---
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 is very important that if you have any new or worsening symptoms you return to the ED. Patient Language: Turkmen Prescriptions: New albuterol sulfate [Ventolin HFA] 90 mcg/actuation HFA aerosol inhaler 1 inh inhalation QID PRN (Reason: shortness of breath or wheezing) Qty: 8.5 0RF albuterol sulfate 1.25 mg/3 mL solution for nebulization 1.25 mg inhalation Q4H Qty: 75 0RF prednisone 20 mg tablet 40 mg PO DAILY 4 Days Qty: 8 0RF Rx Instructions: start 06/28 - received first dose in ED 06/27; take before 9am if possible azithromycin 250 mg tablet 250 mg PO DAILY 4 Days Qty: 4 0RF Rx Instructions: start on day 2 of therapy No Action cholecalciferol (vitamin D3) 1,250 mcg (50,000 unit) capsule 1,250 mcg PO WEEKLY Qty: 14 3RF Patient Comments: Tuesdays nicotine 21 mg/24 hr patch 24 hour 1 patch transdermal DAILY Qty: 14 0RF nicotine 14 mg/24 hr patch 24 hour 1 patch transdermal DAILY Qty: 14 0RF guaifenesin 600 mg tablet extended release 12hr 600 mg PO Q12H PRN (Reason: congestion) Qty: 30 0RF fluticasone propionate 50 mcg/actuation spray,suspension 2 spray intranasal BID Qty: 16 6RF Rx Instructions: administer into each nostril azelastine 137 mcg (0.1 %) spray,non-aerosol 2 spray intranasal BID Qty: 30 6RF Rx Instructions: administer into each nostril Trelegy Ellipta 100-62.5-25 mcg blister with device See Rx Instructions .ROUTE .COMPLEX Qty: 60 11RF Dose Instruction: Inhale 1 puff by mouth once daily Rx Instructions: Inhale 1 puff by mouth once daily albuterol sulfate 90 mcg/actuation HFA aerosol inhaler 2 inh inhalation Q4H PRN (Reason: shortness of breath or wheezing) Qty: 8.5 6RF losartan-hydrochlorothiazide 50-12.5 mg tablet 1 tablet PO DAILY Qty: 90 1RF buspirone 5 mg tablet 5 mg PO TID Qty: 90 1RF temazepam 7.5 mg capsule 7.5 mg PO QHS Qty: 30 0RF prednisone 10 mg tablet 10 mg PO DIRECTED Qty: 30 0RF Rx Instructions: Take 4 tablets by mouth daily for 3 days, then 3 tablets for 3 days, 2 tablets for 3 days, 1 tablet for 3 days azithromycin 250 mg tablet See Rx Instructions PO .COMPLEX Qty: 6 0RF Rx Instructions: For 250 mg dose pack: take 500 mg today (day 1), then 250 mg for 4 days (days 2-5) PO albuterol sulfate 2.5 mg /3 mL (0.083 %) solution for nebulization See Rx Instructions .ROUTE .COMPLEX Qty: 180 6RF Dose Instruction: USE 1 VIAL IN NEBULIZER EVERY 4 TO 6 HOURS NEEDED FOR SHORTNESS OF BREATH AND FOR WHEEZING Rx Instructions: USE 1 VIAL IN NEBULIZER EVERY 4 TO 6 HOURS NEEDED FOR SHORTNESS OF BREATH AND FOR WHEEZING furosemide 40 mg tablet 40 mg PO DAILY PRN (Reason: edema) Qty: 10 2RF Follow-up/Referrals: Marty Altamirano MD [Primary Care Provider, Family Practice] Time of Disposition: 18:16
[2025-06-27 13:14] LABS: Hematocrit 45.5 % (37.0-47.0); Hemoglobin 14.5 g/dL (12.0-15.0); Immature Platelet Fraction Pct 17.1 % (0.9-11.2); Mean Corpuscular HGB Conc 31.9 g/dl (32-36); Mean Corpuscular Hemoglobin 27.9 pg (26-34); Mean Corpuscular Volume 87.7 fl (80-100); Platelet Count Result 159 k/mm3 (150-375); Red Blood Count 5.19 M/mm3 (4.2-5.4); White Blood Count 10.3 K/mm3 (4.5-10.0)
[2025-06-27 13:25] LABS: Alanine Aminotransferase 22 U/L (6-35); Albumin Level 4.5 g/dL (3.5-5.1); Alkaline Phosphatase 139 U/L (38-126); Anion Gap 7 mmol/L (4-12); Aspartate Amino Transferase 28 U/L (14-36); Bilirubin,Total 0.5 mg/dL (0.2-1.3); Blood Urea Nitrogen 23 mg/dL (7-17); Calcium 9.4 mg/dL (8.4-10.2); Carbon Dioxide 26 mmol/L (22-30); Chloride 101 mmol/L (98-107); Estimated Glomerular Filt Rate > 60; Glucose 170 mg/dL (65-110); Potassium 4.5 mmol/L (3.4-5.0); Sodium 134 mmol/L (137-145); Total Protein 7.5 g/dL (6.3-8.2)
[2025-06-27 13:31] LABS: Band Neutrophils Percent 4 % (0-6); Lymphocytes Absolute Manual 0.51 K/mm3 (1.1-4.5); Lymphocytes Percent Manual 5 % (18-44); Neutrophils Absolute Manual 9.78 K/mm3 (1.3-6.7); Neutrophils Percent Manual 91 % (46-73); Total Cells Counted 100
[2025-06-27] MEDS: IPRATROPIUM 0.5 MG/ALBUTEROL SULFATE 2.5 MG (BASE) AMPUL.NEB 3 ML INHALATION ×2 (13:31→15:10)
[2025-06-27 13:32] LABS: Schistocytes None Seen; Stomatocytes 1+
[2025-06-27 13:36] LABS: NT Pro B Type Natriuretic Pept 62 pg/mL (19.9-100); Troponin I < 0.012 ng/mL (0.000-0.034)
[2025-06-27 13:37] LABS: INR 0.9; Prothrombin Time 12.4 Seconds (11.1-14.7)
[2025-06-27 13:38] LABS: Partial Thromboplastin Time 32.6 Seconds (22.3-36.8)
--- OUTSIDE RECORDS SUMMARY | 2025-06-27 13:42 | XMS_ITS | Clinical Summary ---
Author Organization [facility] Address [address] [place] [id number] Care Team Providers Care Grocery Checker Name Role Phone Unavailable Primary Care Provider [...] 75+ series) 2021 COVID-19 Vaccine ( - 2024-2 6 season) 2025 Influenza Adult (#1) 2025 Hepatitis A Vaccines Aged Out No long er eligible based on patient's age to complete this topic Meningococcal B Vaccine Aged Out No l onger eligible based on patient's age to complete this topic Meningococcal Vaccine Aged Out No ishmael ting eligible based on patient's age to complete this topic RSV Immunizations Under 20 Months Aged Out No longer eligible based on patient's age to complete this topic
[2025-06-27 13:44] LABS: Magnesium 2.2 mg/dL (1.6-2.3)
[2025-06-27] MEDS: SODIUM CHLORIDE 0.9% IV 500 ML 999 ML IV CONT ×2 (13:58→16:16)
[2025-06-27] MEDS: MAGNESIUM SULF 1 GM/D5W 100 ML 1 GM/100 ML BAG IVPB ×2 (13:58→17:14)
[2025-06-27 14:07] LABS: Influenza A QL RT-PCR Negative (Negative); Influenza B QL RT-PCR Negative (Negative); RSV RNA, RT-PCR Negative (Negative); SARS-CoV-2 RNA PCR Negative (Negative)
[2025-06-27] MEDS: AZITHROMYCIN 500 MG TABLET PO (14:23)
[2025-06-27] MEDS: ALBUTEROL SULFATE NEB 2.5 MG/3 ML INH INHALATION (14:23)
--- OUTSIDE RECORDS SUMMARY | 2025-06-27 14:34 | XMS_ITS | Clinical Summary ---
Author Organization [facility] Address [address] [place] [id number] Care Team Providers Care Ground Service Equipment Mechanic Name Role Phone Unavailable Primary Care Provider [...]
[2025-06-27] MEDS: BENZONATATE 100 MG CAPSULE PO (15:14)
[2025-06-27] MEDS: ALBUTEROL SULFATE NEB 2.5 MG/3 ML INH 10 MG INHALATION (15:39)
[2025-06-27] MEDS: guaiFENesin/CODEINE (*CRX) 200/20 MG 10 ML SYRUP PO (15:52)
--- NOTE | 2025-06-27 17:10 | PCRCNOTE ---
Instructed pt on the use of Acapella and benefits. Pt understands and uses well.
== END 2025-06-27 19:21 | disposition home or self-care (01) ==
PROVIDERS: Emergency Provider Student in an Organized Health Care Education/Training Program; PCP Family Medicine
DX: J44.1 Chronic obstructive pulmonary disease with (acute) exacerbation (principal); J43.9 Emphysema, unspecified; R73.9 Hyperglycemia, unspecified; R74.8 Abnormal levels of other serum enzymes; Z20.822 Contact with and (suspected) exposure to COVID-19; I11.9 Hypertensive heart disease without heart failure; J32.2 Chronic ethmoidal sinusitis; E55.9 Vitamin D deficiency, unspecified; E53.8 Deficiency of other specified B group vitamins; K21.9 Gastro-esophageal reflux disease without esophagitis; K58.9 Irritable bowel syndrome, unspecified; M81.0 Age-related osteoporosis without current pathological fracture; F41.8 Other specified anxiety disorders; F17.210 Nicotine dependence, cigarettes, uncomplicated; Z99.81 Dependence on supplemental oxygen; Z98.49 Cataract extraction status, unspecified eye; Z90.710 Acquired absence of both cervix and uterus; Z66 Do not resuscitate
CPT/HCPCS: 36415; 71046; 80053; 83605; 83735; 83880; 84484; 85025; 85055; 85380; 85610; 85730; 87637; 93005; 94640; 96361; 96365; 96366; 99284; 99285; A9270; J3475; J7040; J7512

== ENCOUNTER 2025-07-25 17:28 | Emergency (ER) | payer MEDICARE, SELFPAY ==
[2025-07-25] VITALS (12 sets, daily range): BP systolic 129–168; BP diastolic 50–110; PULSE 75–109; RESP 16–26; TEMP 36.6–36.9; O2SAT 93–100
--- NOTE | ~2025-07-25 | XR_ITS ---
EXAMINATION: XR chest 1V portable DATE: 07/25/2025 21:25 INDICATION: COPD TECHNIQUE: frontal view of the chest was obtained. COMPARISON: Chest radiograph dated 06/27/[address] dated 05/04/2025 FINDINGS: Calcified nodule at the left lung base consistent with old granulomatous disease. Persistent mild opacities at the lateral left lung base which could represent persistent atelectasis or pneumonia. No pleural effusion or pneumothorax. The cardiomediastinal silhouette is normal. Moderate degenerative skeletal changes in the spine in both shoulders. IMPRESSION: 1. Persistent mild opacities at the lateral left lower lung zone most likely persistent lingular atelectasis/scarring although differential includes pneumonia. Reviewed, dictated and finalized at location A. SCIENCES MANAGER IMPRESSION: 1. Persistent mild opacities at the lateral left lower lung zone most likely pe rsistent lingular atelectasis/scarring although differential includes pneumonia .
--- NOTE | 2025-07-25 21:01 | ECG_ITS ---
Test Date: 2025-07-25 21:09:41 Measurements Intervals [place] Rate: P: 0 MT: 0 QRS: 0 QRSD: 0 T: 0 QT: 0 QTc: 0 Interpretive Statements SINUS RHYTHM WITH ATRIAL PREMATURE COMPLEX INCOMPLETE RIGHT BUNDLE BRANCH BLOCK DELAYED PRECORDIAL R/S TRANSITION BASELINE ARTIFACT- I, II, III, AVR, AVL, AVF, V1-V6 BORDERLINE ECG Compared to ECG 06/27/2025 13:21:23 NO SIGNIFICANT CHANGE Electronically Signed On 07-25-2025 21:20:56 APARTMENT COORDINATOR by Alfredo Chapa D.O.
--- NOTE | 2025-07-25 21:03 | ED_ITS ---
HPI - SOB/Dyspnea General Chief Complaint: Shortness of Breath/Dyspnea Stated Complaint: copd exacerbation Time Seen by Provider: 07/25/25 20:57 History of Present Illness HPI Narrative: 80-year-old female with history of COPD secondary to tobacco abuse on 2 L nasal cannula p.r.n. during day and q.h.s.. She also has a history of GERD, hypertension. Patient presents to the emergency department today with shortness of breath and a nonproductive cough. Patient states it feels like when the weather got cold the last few days she was having worsening COPD symptoms and a flare associated with a nonproductive cough and wheezing. Has not had any decreased pulse oximetry readings at home and still using her oxygen as directed. She states she has been mostly bothered by the cough but denies any chest pain, nausea vomiting, syncope, diaphoresis, abdominal pain, back pain, fever, chills. Has been in the emergency department before for COPD flares. Patient states she does not want to be hospitalized today and just needs treatment for her cough and COPD. Related Data Allergies Allergy/AdvReac Type Severity Reaction Status Date / Time No Known Allergies Allergy Verified 07/25/25 17:31 Review of Systems 2 Review of Systems: As reviewed above in HPI All systems reviewed & are unremarkable except as noted in HPI and below PMFSH Past Medical History Medical History Dependence on supplemental oxygen 2LPM via NC QHS (and PRN during day) Tobacco abuse HTN (hypertension) Nocturnal hypoxemia due to emphysema Vitamin D deficiency, unspecified Chronic rhinosinusitis B12 deficiency Burn of second degree of left forearm, sequela Shingles COVID-19 long hauler Emphysema lung Insomnia Arthritis Chronic pain Chronic ethmoidal sinusitis Right radial head fracture History of tobacco abuse GERD (gastroesophageal reflux disease) MDD (major depressive disorder), recurrent episode, moderate Benign hypertension without CHF 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 No acute bronchodilator response. Severely decreased DLCO with worsening of her DLCO compared to prior study in November of 2016 Surgical History Surgical History S/P sinus surgery Hx of cataract surgery Hx of hysterectomy History of colonoscopy [address] Garcia History of sinus surgery February [address] Rowe due to chronic maxillary and ethmoid sinusitis History of section History of bladder repair surgery History of hemorrhoidectomy H/O hysterectomy for benign disease Due to uterine fibroids in 1996 Family History Family History Sibling Lung cancer Brother Chronic obstructive pulmonary disease Hypertension Diabetes mellitus Mother Acute myocardial infarction Patient's mother is Sibling Family history of elevated blood lipids Hypertension Diabetes mellitus Alcoholism Social History Social History Social History: The patient has been to her for 26 years but they have been for the last 1.5 years. They were in a committed relationship for 13 years prior to getting . She now lives in her own rental property with her daughter, grand-daughter, and great grand-daughter. Her still lives in their home and takes care of the patient's brother who is a disabled . She has 3 children. She has quit smoking multiple times but always returns to smoking she is still intermittently smoking between 1-5 cigarettes a day. She started smoking as a teenager. She denies any significant alcohol use. She does not have any animals in her home. Code status: DNR/DNI per patient request Healthcare power of tax manager public: Susie Mclain (daughter) Smoking packs per day: 1 Smoking cigarettes per day: 20.0 Years smoked: 55 Smoking pack-years: 55.00 Smoking status: Former smoker Second hand tobacco smoke exposure: Yes Alcohol intake: never Substance use: never Substance use type: does not use Lack of Transportation: No Lack of Food: Never True Current Housing: I Have Housing Concerned About Future Housing: No Difficulty Paying Gas/Electric Bills: No Difficulty Paying for Meds: No Currently Unemployed: No Education: Trade/Vocational Certificate Difficulty w/ Childcare or Family Care: No Living arrangements: with family Occupation/Education: retired Gender identity (if verbalized by the patient): Female Sexual Orientation (if Verbalized by the Patient): Straight or Heterosexual Spiritual care concerns: No Agree to blood products: Yes Exam 2 Narrative: GENERAL: Thin and frail but not any acute distress. Coughing frequently throughout the examination with a dry hacking cough. HEAD: [Normocephalic, atraumatic.] EYES: [PERRLA and EOMI.] ENT: Nares clear, no rhinorrhea or epistaxis. Mucous membranes moist. NECK: Supple. CHEST: Scattered asymmetric wheezing worse on the right side, no decreased air entry or prolonged expiratory phase. Mildly tachypneic. Conversing in full sentences. HEART: Mildly tachycardic but regular rhythm. Normal pulses warm extremities. ABDOMEN: [Soft, nondistended], [nontender], [No rigidity or guarding] EXTREMITIES: Normal range of motion. [No edema.] SKIN: Warm, dry, no rash. NEURO: [No focal deficits]. Alert and oriented [x3.] PSYCH: [Normal mood and affect.] Course Vital Signs Vital signs: Vital Signs Temperature 36.6 C 07/25/25 17:36 Pulse Rate 87 07/25/25 17:36 Respiratory Rate 16 07/25/25 17:36 Blood Pressure 168/110 H 07/25/25 17:36 Pulse Oximetry 98 07/25/25 17:36 Temperature 36.9 C 07/25/25 18:09 Pulse Rate 85 07/25/25 23:51 Respiratory Rate 20 07/25/25 23:51 Blood Pressure 146/83 H 07/25/25 23:51 Pulse Oximetry 99 07/25/25 23:51 Oxygen Delivery Nasal Cannula 07/25/25 21:33 Oxygen Flow Rate 2 07/25/25 21:33 [facility] Narrative Medical decision making narrative: 80-year-old female with history of COPD secondary to tobacco abuse on 2 L nasal cannula p.r.n. during day and q.h.s.. She also has a history of GERD, hypertension. Patient presents to the emergency department today with shortness of breath and a nonproductive cough. Patient states it feels like when the weather got cold the last few days she was having worsening COPD symptoms and a flare associated with a nonproductive cough and wheezing. Has not had any decreased pulse oximetry readings at home and still using her oxygen as directed. She states she has been mostly bothered by the cough but denies any chest pain, nausea vomiting, syncope, diaphoresis, abdominal pain, back pain, fever, chills. Has been in the emergency department before for COPD flares. Patient states she does not want to be hospitalized today and just needs treatment for her cough and COPD. Patient's examination shows some mild tachypnea and asymmetric wheezing without any decreased air entry. She otherwise appears well but is coughing frequently with a dry hacking cough that is her main complaint. Saturating 93-98% on her home 2 L nasal cannula. Likely COPD exacerbation, pneumonia, COVID, flu, bronchitis, pneumothorax. Low suspicion cardiac pathology. Laboratory studies is chest x-ray and EKG were ordered. She was given an hour long nebulization with DuoNeb as well as magnesium bolus and fluids. Given Solu-Medrol as well as nebulized lidocaine for her frequent coughing. Patient had improvement in symptoms no longer coughing. No longer as tachypneic. Vital signs improved 100% on her baseline oxygen. Workup was unrevealing. No leukocytosis or anemia. Normal platelet count. Elect electrolytes are unremarkable. Normal creatinine. Normal glucose. Magnesium was elevated but this was drawn off the line that a magnesium bolus was given through so likely lab error. Viral panel swabs are negative. Chest x-ray shows no focal consolidation. Safe for discharge with a course of steroids and the azithromycin prescription for her COPD exacerbation. Given return precautions and follow-up instructions. Mitch Mcbride also prescribe for her cough. Differential Diagnosis Differential Diagnosis: Likely COPD exacerbation, pneumonia, COVID, flu, bronchitis, pneumothorax. Low suspicion cardiac pathology. Lab Data MDM Lab Attestation statement: I personally reviewed the patient's lab results. 07/25/25 21:20 07/25/25 22:06 Labs: Lab Results 07/25/25 07/25/25 07/25/25 Range/Units 21:10 21:20 22:06 WBC 6.7 (4.5-10.0) K/mm3 RBC 4.81 (4.2-5.4) M/mm3 Hgb 13.4 (12.0-15.0) g/dL Hct 41.8 (37.0-47.0) % MCV 86.9 (80-100) fl MCH 27.9 (26-34) pg MCHC 32.1 (32-36) g/dl RDW 14.3 (11.5-14.5) % Plt Count 189 (150-375) k/mm3 MPV 13.1 H (7.4-10.4) fl Immature Gran % (Auto) 0.0 (0-0.5) % Neut % (Auto) 65.7 (45.5-73.1) % Lymph % (Auto) 21.2 (18.3-44.2) % Rush % (Auto) 7.5 (2.6-8.5) % Eos % (Auto) 4.7 H (0-4.4) % Baso % (Auto) 0.9 (0.2-1.2) % Lymph # (Auto) 1.41 (0.9-3.2) K/mm3 Rush # (Auto) 0.5 (0.1-0.6) K/mm3 Eos # (Auto) 0.3 (0-0.3) K/mm3 Baso # (Auto) 0.1 (0.0-0.1) K/mm3 Abs Immat Gran (auto) 0.00 (0.00-0.031) K/mm3 Absolute Neuts (auto) 4.4 (1.3-6.7) K/mm3 Absolute Nucleated RBC 0.000 (0.0-0.012) K/mm3 Nucleated RBC % 0.0 (0.0-0.2) % % Immature Plt Fraction 12.3 H (0.9-11.2) % Sodium 136 L (137-145) mmol/L Potassium 4.4 (3.4-5.0) mmol/L Chloride 104 (98-107) mmol/L Carbon Dioxide 29 (22-30) mmol/L Anion Gap 3 L (4-12) mmol/L BUN 17 (7-17) mg/dL Creatinine 0.92 (0.7-1.0) mg/dL Estim Creat Clear Calc Not Reportable Estimated GFR 59 (59 - ) Glucose 106 (65-110) mg/dL Calcium 9.4 (8.4-10.2) mg/dL Magnesium Cancelled 3.9 H Influenza A (RT-PCR) Negative (Negative) Influenza B (RT-PCR) Negative (Negative) RSV (RT-PCR) Negative (Negative) SARS-CoV-2 RNA (RT-PCR) Negative (Negative) Imaging Data Attestation: I personally reviewed and interpreted this imaging study as follows: My impression: No consolidation or obvious pneumonia. No pneumothorax. Emphysematous lungs Critical Care Time Critical Care Time Critical Care Time: Yes Time Type: Intermittent Initial evaluation, discuss w/ involved parties, attempting to gather old records: 10 minutes Documenting medical record: 5 minutes Review of results (EKG's, labs, imaging): 5 minutes Serial repeat bedside evaluation: 10 minutes Discussing case with multiple memebers of the care team and consultants: 5 minutes Total Critical Care Time: 35 Discharge Plan Discharge Clinical Impression: Acute exacerbation of chronic obstructive pulmonary disease Patient Disposition: Home Condition: Stable Instructions: Antibiotic Form, COPD (Chronic Obstructive Pulmonary Disease) (DC) Additional Instructions: Laboratory studies were reassuring. Viral panel swabs were negative. No COVID or influenza. Chest x-ray does not show any consolidation such as pneumonia. Will treat her cough with a combination of steroids, Z-Andrews and Tessalon Perles. Likely triggered by her COPD exacerbation from the weather changes. Return with any emergent concerns but please follow-up with your regular doctors. Patient Language: Vietnamese Prescriptions: New benzonatate 200 mg capsule 200 mg PO TID PRN (Reason: cough) Qty: 20 0RF prednisone 50 mg tablet 50 mg PO DAILY 5 Days Qty: 5 0RF azithromycin [Zithromax TRI-ANDREWS] 500 mg tablet 500 mg PO DAILY 5 Days Qty: 5 0RF No Action cholecalciferol (vitamin D3) 1,250 mcg (50,000 unit) capsule 1,250 mcg PO WEEKLY Qty: 14 3RF Patient Comments: Tuesdays albuterol sulfate 2.5 mg /3 mL (0.083 %) solution for nebulization See Rx Instructions .ROUTE .COMPLEX Qty: 360 5RF Dose Instruction: USE 1 VIAL IN NEBULIZER EVERY 4 TO 6 HOURS NEEDED FOR SHORTNESS OF BREATH AND FOR WHEEZING Rx Instructions: USE 1 VIAL IN NEBULIZER EVERY 4 TO 6 HOURS NEEDED FOR SHORTNESS OF BREATH AND FOR WHEEZING Ohtuvayre 3 mg/2.5 mL suspension for nebulization 2.5 ml inhalation BID Qty: 150 11RF furosemide 40 mg tablet 40 mg PO DAILY PRN (Reason: edema) Qty: 30 0RF temazepam 7.5 mg capsule 7.5 mg PO QHS Qty: 30 0RF prednisone 10 mg tablet 10 mg PO DAILY Qty: 30 0RF Rx Instructions: Take 4 tabs x 3 days, then 3 tabs x 3 days, then 2 tabs x 3 days, then 1 tab x 3 days guaifenesin 600 mg tablet extended release 12hr 600 mg PO Q12H PRN (Reason: congestion) Qty: 30 0RF albuterol sulfate [Ventolin HFA] 90 mcg/actuation HFA aerosol inhaler 1 inh inhalation QID PRN (Reason: shortness of breath or wheezing) Qty: 8.5 0RF fluticasone propionate 50 mcg/actuation spray,suspension 2 spray intranasal BID Qty: 16 6RF Rx Instructions: administer into each nostril azelastine 137 mcg (0.1 %) spray,non-aerosol 2 spray intranasal BID Qty: 30 6RF Rx Instructions: administer into each nostril Trelegy Ellipta 100-62.5-25 mcg blister with device See Rx Instructions .ROUTE .COMPLEX Qty: 60 11RF Dose Instruction: Inhale 1 puff by mouth once daily Rx Instructions: Inhale 1 puff by mouth once daily losartan-hydrochlorothiazide 50-12.5 mg tablet 1 tablet PO DAILY Qty: 90 1RF buspirone 5 mg tablet 5 mg PO TID Qty: 90 1RF Follow-up/Referrals: Marty Altamirano MD [Primary Care Provider, Family Practice] Time of Disposition: 23:08
[2025-07-25 21:26] LABS: Hematocrit 41.8 % (37.0-47.0); Hemoglobin 13.4 g/dL (12.0-15.0); Immature Granulocyte Percent A 0.0 % (0-0.5); Immature Platelet Fraction Pct 12.3 % (0.9-11.2); Lymphocytes Absolute Auto 1.41 K/mm3 (0.9-3.2); Mean Corpuscular HGB Conc 32.1 g/dl (32-36); Mean Corpuscular Hemoglobin 27.9 pg (26-34); Mean Corpuscular Volume 86.9 fl (80-100); Nucleated Red Blood Cells Absolute Auto 0.000 K/mm3 (0.0-0.012); Nucleated Red Blood Cells Perc 0.0 % (0.0-0.2); Platelet Count Result 189 k/mm3 (150-375); Red Blood Count 4.81 M/mm3 (4.2-5.4); White Blood Count 6.7 K/mm3 (4.5-10.0)
[2025-07-25] MEDS: ALBUTEROL SULFATE NEB 2.5 MG/3 ML INH 10 MG INHALATION (21:27)
[2025-07-25] MEDS: IPRATROPIUM BR 0.02% INH SOLN 0.5 MG/2.5 ML VIAL 1 MG INHALATION (21:27)
[2025-07-25] MEDS: LIDOCAINE 4% PF INJ 5 ML AMP NEBULIZE (21:29)
[2025-07-25] MEDS: SODIUM CHLORIDE 0.9% IV 1,000 ML 999 ML IV CONT (21:29)
[2025-07-25] MEDS: MAGNESIUM SULF 2 GM/WATER 50ML 2 GM/50 ML BAG IVPB (21:30)
[2025-07-25 21:51] LABS: Influenza A QL RT-PCR Negative (Negative); Influenza B QL RT-PCR Negative (Negative); RSV RNA, RT-PCR Negative (Negative); SARS-CoV-2 RNA PCR Negative (Negative)
[2025-07-25 22:19] LABS: Anion Gap 3 mmol/L (4-12); Blood Urea Nitrogen 17 mg/dL (7-17); Calcium 9.4 mg/dL (8.4-10.2); Carbon Dioxide 29 mmol/L (22-30); Chloride 104 mmol/L (98-107); Estimated Glomerular Filt Rate 59; Glucose 106 mg/dL (65-110); Potassium 4.4 mmol/L (3.4-5.0); Sodium 136 mmol/L (137-145)
[2025-07-25 22:46] LABS: Magnesium 3.9 mg/dL (1.6-2.3)
== END 2025-07-25 23:51 | disposition home or self-care (01) ==
PROVIDERS: Emergency Provider Student in an Organized Health Care Education/Training Program; PCP Family Medicine
DX: J44.1 Chronic obstructive pulmonary disease with (acute) exacerbation (principal); K21.9 Gastro-esophageal reflux disease without esophagitis; I10 Essential (primary) hypertension; E55.9 Vitamin D deficiency, unspecified; E53.8 Deficiency of other specified B group vitamins; M81.0 Age-related osteoporosis without current pathological fracture; Z87.891 Personal history of nicotine dependence; Z20.822 Contact with and (suspected) exposure to COVID-19
CPT/HCPCS: 36415; 71045; 80048; 83735; 85025; 85055; 87637; 93005; 94640; 96365; 96375; 99284; J2003; J2919; J3475; J7030